=== PATIENT | female | born 2000 | race Caucasian/White ===

== ENCOUNTER 2024-05-24 01:41 | Emergency (ER) | payer OTHER, SELFPAY ==
[2024-05-24 01:46] VITALS: BP 110/66; PULSE 97; TEMP 36.8; O2SAT 100; BMI 30.2
--- NOTE | 2024-05-24 01:48 | ED_ITS ---
HPI - Nausea/Vomiting/Diarrhea General Chief complaint: Nausea/Vomiting/Diarrhea Stated complaint: vomiting Time Seen by Provider: 05/24/24 01:47 History of Present Illness HPI Narrative: This 23-year-old female presents for evaluation of nausea vomiting and diarrhea that started earlier this evening. She has had at least 6 episodes of diarrhea and 2-3 episodes of vomiting. The last episode of vomiting was in the car on the way to the hospital. She is uncertain whether or not she may be . She has had some chills and sweats. She denies any madelin abdominal pain. She has no chest pain or shortness of breath. She denies any sick contacts, recent travel out of the country or recent antibiotic use. Related Data Home Medications ?Medication ?Instructions ?Recorded ?Confirmed No Known Home Medications 05/24/24 05/24/24 Allergies Allergy/AdvReac Type Severity Reaction Status Date / Time prednisone AdvReac Chest Pain Verified 05/24/24 01:51 Review of Systems ROS Status of ROS 10 or more systems reviewed and unremark able except as noted in history and below PFSH PFSH Social History Little interest or pleasure in doing things: not at all Feeling down, depressed, or hopeless: not at all Exam Narrative Exam Narrative: Vital signs and Nursing Notes reviewed: General: Awake, alert, oriented, nontoxic but uncomfortable appearing female, no respiratory distress, dry heaving in the ER HEENT: Normocephalic atraumatic, mucous membranes are moist and pink, eyes are clear, normal conjunctiva, vision is grossly intact, posterior pharynx is normal in appearance. Chest: Lungs are clear to auscultation with good air entry, there is no wheezing rhonchi or rales appreciated no accessory muscle use, patient is speaking in complete sentences-no chest wall tenderness to palpation CVS: Regular rate and rhythm S1-S2, no murmurs rubs or gallops, pulses are brisk and equal bilaterally ABD: Soft, nondistended, nontender, no rebound guarding or rigidity, bowel sounds are normal, no pulsatile masses appreciated Extremities: Moving all extremities, no lower extremity tenderness or swelling noted, negative Homans' sign, pulses are brisk and equal bilaterally Skin: Normal in appearance without rash,pallor, petechiae or purpura Neuro: No focal deficits Constitutional Vital Signs, click to edit/add: Last Vital Signs Temp 98.3 F 05/24/24 01:46 Pulse 90 05/24/24 03:42 Resp 16 05/24/24 03:42 BP 99/55 05/24/24 03:42 Pulse Ox 98 05/24/24 03:42 O2 Del Method Room Air 05/24/24 03:42 Course Vital Signs Vital signs: Vital Signs Temperature 98.3 F 05/24/24 01:46 Pulse Rate 97 H 05/24/24 01:46 Respiratory Rate 16 05/24/24 01:46 Blood Pressure 110/66 05/24/24 01:46 Pulse Oximetry 100 05/24/24 01:46 Oxygen Delivery Method Room Air 05/24/24 01:46 Temperature 98.3 F 05/24/24 01:46 Pulse Rate 90 05/24/24 03:42 Respiratory Rate 16 05/24/24 03:42 Blood Pressure 99/55 05/24/24 03:42 Pulse Oximetry 98 05/24/24 03:42 Oxygen Delivery Method Room Air 05/24/24 03:42 MDM - Nausea/Vomiting/Diarrhea MDM Narrative Medical decision making narrative: This 23-year-old female who is otherwise healthy and uncertain if she may be is brought to the emergency department by her boyfriend for evaluation of nausea vomiting and diarrhea that started earlier in the evening. She had multiple episodes of diarrhea then developed nausea and vomiting. Upon arrival she was having dry heaves and had an episode of vomiting in the car. She has not had a fever. She did complain of some chills. Her abdomen is soft. Lungs are clear. Vital signs are stable. An IV was placed and she was medicated with IV fluids, Zofran Pepcid and Toradol. On reevaluation she is feeling better. Routine labs are reviewed. Her test was negative she has an elevated white count of 17.4 which is likely related to her vomiting, her electrolytes are normal. Liver function tests are normal. On reevaluation she is tolerating ice chips and feeling better. She will be given a home dose of Zofran and p rescription for Zofran, Pepcid and Bentyl with recommendation for clear liquid diet with slow advancement as tolerated. Lab Data Labs: Lab Results 05/24/24 Range/Units 02:10 WBC 17.4 H (4.0-11.0) 10^3/uL RBC 5.02 (4.20-5.40) 10^6/uL Hgb 13.6 (12.0-16.0) g/dL Hct 40.7 (36.0-48.0) % MCV 81.1 (81.0-99.0) fL MCH 27.1 (26.7-34.0) pg MCHC 33.4 (29.9-35.2) g/dL RDW 14.4 (11.0-15.0) % Plt Count 281 (150-450) 10^3/uL MPV 9.4 L (9.5-13.5) fL Neut % (Auto) 86.5 H (43.0-75.0) % Lymph % (Auto) 7.3 L (20.5-60.0) % [place] % (Auto) 4.5 (1.7-12.0) % Eos % (Auto) 1.0 (0.9-7.0) % Baso % (Auto) 0.2 (0.2-2.0) % Neut # (Auto) 15.0 H (1.4-6.5) 10^3/uL Lymph # (Auto) 1.3 (1.2-3.8) 10^3/uL [place] # (Auto) 0.8 (0.3-0.8) 10^3/uL Eos # (Auto) 0.2 (0.0-0.7) 10^3/uL Baso # (Auto) 0.0 (0.0-0.1) 10^3/uL Abs Immat Gran (auto) 0.09 H (0.00-0.03) 10^3/uL Imm/Tot Granulo (auto) 0.5 (0.0-0.5) % Sodium 141 (136-145) mmol/L Potassium 3.5 (3.5-5.1) mmol/L Chloride 104 (98-107) mmol/L Carbon Dioxide 27.2 (21.0-32.0) mmol/L Anion Gap 13.3 BUN 13.0 (7.0-18.0) mg/dL Creatinine 0.95 (0.55-1.02) mg/dL Est GFR ( Amer) >60 (>=60 mL/min/1.73m^2) Est GFR (Non-Af Amer) >60 (>=60 mL/min/1.73m^2) BUN/Creatinine Ratio 13.7 Glucose 121 H (74-106) mg/dL Calcium 8.9 (8.5-10.1) mg/dL Total Bilirubin 0.4 (0.2-1.0) mg/dL AST 15 (15-37) U/L ALT 20 (14-59) U/L Alkaline Phosphatase 83 (46-116) U/L Total Protein 7.7 (6.4-8.2) g/dL Albumin 3.6 (3.4-5.0) g/dL Globulin 4.1 g/dL Albumin/Globulin Ratio 0.9 Serum HCG, Qual Negative (NEGATIVE) Discharge Plan Discharge Chief Complaint: Nausea/Vomiting/Diarrhea Clinical Impression: Gastroenteritis Patient Disposition: Home, Self-Care Time of Disposition Decision: 03:34 Condition: Good Mode of Transportation: Private Vehicle Prescriptions / Home Meds: No Action No Known Home Medications Print Language: Kosovan Instructions: Acute Nausea and Vomiting (ED), Acute Diarrhea (ED) Referrals: MALATHI PUGA [Primary Care Provider] - 1 week Discharge Date/Time: 05/24/24 03:45
[2024-05-24 02:20] LABS: Basophils Percent Auto 0.2 % (0.2-2.0); Eosinophils Absolute Auto 0.2 10^3/uL (0.0-0.7); Hematocrit 40.7 % (36.0-48.0); Hemoglobin 13.6 g/dL (12.0-16.0); Immature Granulocytes Abs Auto 0.09 10^3/uL (0.00-0.03); Immature Granulocytes Pct Auto 0.5 % (0.0-0.5); Lymphocytes Absolute Auto 1.3 10^3/uL (1.2-3.8); Lymphocytes Percent Auto 7.3 % (20.5-60.0); Mean Corpuscular HGB Conc 33.4 g/dL (29.9-35.2); Mean Corpuscular Hemoglobin 27.1 pg (26.7-34.0); Mean Corpuscular Volume 81.1 fL (81.0-99.0); Mean Platelet Volume 9.4 fL (9.5-13.5); Monocytes Absolute Auto 0.8 10^3/uL (0.3-0.8); Monocytes Percent Auto 4.5 % (1.7-12.0); Neutrophils Percent Auto 86.5 % (43.0-75.0); Platelet Count 281 10^3/uL (150-450); Red Blood Count 5.02 10^6/uL (4.20-5.40); Red Cell Distribution Width 14.4 % (11.0-15.0); White Blood Count 17.4 10^3/uL (4.0-11.0)
[2024-05-24] MEDS: 0.9 % SODIUM CHLORIDE 1,000 ML 1000 ML IV (02:24)
[2024-05-24] MEDS: ONDANSETRON PF 4 MG/2 ML VIAL IV (02:24)
[2024-05-24] MEDS: FAMOTIDINE/PF 20 MG/2 ML VIAL IV (02:24)
[2024-05-24 02:34] LABS: Alanine Aminotransferase 20 U/L (14-59); Albumin Globulin Ratio 0.9; Albumin Level 3.6 g/dL (3.4-5.0); Alkaline Phosphatase 83 U/L (46-116); Anion Gap 13.3; Aspartate Amino Transferase 15 U/L (15-37); BUN Creatinine Ratio 13.7; Bilirubin Total 0.4 mg/dL (0.2-1.0); Calcium 8.9 mg/dL (8.5-10.1); Carbon Dioxide 27.2 mmol/L (21.0-32.0); Chloride 104 mmol/L (98-107); Estimated GFR (African America >60 (>=60 mL/min/1.73m^2); Estimated GFR (Non-African Ame >60 (>=60 mL/min/1.73m^2); Globulin 4.1 g/dL; Glucose 121 mg/dL (74-106); Potassium 3.5 mmol/L (3.5-5.1); Sodium 141 mmol/L (136-145); Total Protein 7.7 g/dL (6.4-8.2)
[2024-05-24 02:35] LABS: HCG Qualitative NEGATIVE (NEGATIVE); Internal Control Within Normal Limits
[2024-05-24] MEDS: KETOROLAC TROMETHAMINE 30 MG/ML VIAL IVP (02:43)
[2024-05-24] MEDS: ONDANSETRON 4 MG RAPDIS TABLET SL (03:38)
[2024-05-24 03:42] VITALS: BP 99/55; PULSE 90; O2SAT 98
== END 2024-05-24 03:45 | disposition home or self-care (01) ==
PROVIDERS: Emergency Provider Emergency Medicine; PCP Family Medicine
DX: K52.9 Noninfective gastroenteritis and colitis, unspecified (principal)
CPT/HCPCS: 36415; 80053; 84703; 85025; 96361; 96374; 96375; 99284; J1885; J2405; J3490; Q0162

== ENCOUNTER 2024-12-28 19:20 | Emergency (ER) | payer OTHER, SELFPAY ==
--- OUTSIDE RECORDS SUMMARY | 2024-10-16 09:15 | XMS_ITS ---
Author Organization [facility] [employer] Address [address] [place] [address] Care Team Providers Care Supervisor Plate Pasting Name Role Phone Rosa Lauren Primary Care Provider LISA EPPS Unavailable REASON FOR VISIT 1 month f/u Encounters Encounter Location Date Provider Diagnosis [facility] [address] [place] [address] 10/16/2024 Rosa Lauren Plan Of Treatment No Information Progress Notes * LUIS CHAMBERLAIN SDOB: [birth year] (24 yo F)Acc No.[id number]:10/16/2024 Behavioral Health Patient: LUIS CARDOSO Appointment Provider: Rama Lauren :2000 A ge:24 Y S ex:Female Date:10/16/2024 Address:[address], [id number] Subjective: * Chief Complaints: * 1 . 1 month f/u bh. * Medical History: Objective: * Vitals: Assessment: Plan: * Treatment: * Images: * Electronic signature of DILAN Nix on 12/28/2024 at 07:27 PM EDT Sign off status: Pending * Appointment Provider: Rama Lauren Date: 0 10/16/2024 Generated for Flor rodriguez/Justus/eTransmitting on: 0 12/28/2024 07:27 PM EDT
[2024-12-28 19:24] VITALS: BP 126/79; PULSE 70; TEMP 36.7; O2SAT 99; BMI 34.0
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
--- OUTSIDE RECORDS SUMMARY | 2024-12-28 19:27 | XMS_ITS | Clinical Summary ---
Author Organization [facility] Address [address] [place] [address] Phone Care Team Providers Care Turkey Picker Name Role Phone Unavailable Primary Care Provider Unavailabl e Social History Tobacco Use Types Packs/Day Years Used Date Smoking Tobacco: Never Assessed Comments Unknown Sex and Gender Information Value Date Recorded Sex Assigned at Not on file Legal Sex Female 10:05 AM EST Gender Identity Not on file Sexual Orientation Not on file Plan of Treatment Health Maintenance Due Date Last Done Comments HIV Screening 2001 Lipid Panel 2001 Yearly Adult Physical 2001 MMR Vaccines (1 of 1 - Stand luna series) 2002 HPV Vaccines (1 - 3-dose series) 2016 Meningococcal B Vaccine (1 o f 2 - Standard) 2017 Hepatitis C Screening 08/17/2019 Hepatitis B Vaccines (1 of 3 - 19+ 3-dose series) 2020 Cervical Cancer Screening 2022 HPV/Cotest 2022 Pap Smear 2022 DTaP/Tdap/Td Vaccines (1 - Tdap) 08/17/2023 COVID-19 Vaccine (1 - 2023-2 5 season) 2023 Influenza Vaccine (#1) 2024 Zoster Vaccines (1 of 2) 08/17/2051 HIB Vaccines Aged Out No longer eligi ble based on patient's age to complete this topic Hepatitis A Vaccines Aged Out No long er eligible based on patient's age to complete this topic IPV Vaccines Aged Out No longer eligi ble based on patient's age to complete this topic Meningococcal Vaccine Aged Out No srinivas arlene eligible based on patient's age to complete this topic Pneumococcal Vaccine: Pediat rics and At-Risk Adult Patients Aged Out No longer scotty gible based on patient's age to complete this topic Rotavirus Vaccines Aged Out No longer eligible based on patient's age to complete this topic Insurance [facility] Member Subscriber Plan / Payer ( fective 2023-Present) Name:Elizabeth Hernandez Relation to Subscriber:Self Name:Elizabeth Hernandez Payer ID:Not on file Type:Not on file Address: [address] [place] [phone] [facility] Member Subscriber Plan / Payer ( fective 2023-Present) Name:Elizabeth Hernandez Relation to Subscriber:Self Name:Elizabeth Hernandez Payer ID:Not on file Type:Not on file Address: [address] [place] [phone]
--- OUTSIDE RECORDS SUMMARY | 2024-12-28 19:27 | XMS_ITS | Clinical Summary ---
Author Organization [facility] Address [address], [address] [place] [address] Care Team Providers Care Remote Sensing Engineer Name Role Phone Unavailable Primary Care Provider Unavailabl e Social History Tobacco Use Types Packs/Day Years Used Date Smoking Tobacco: Never Assessed Comments Unknown Sex and Gender Information Value Date Recorded Sex Assigned at Not on file Legal Sex Female 9:06 AM EDT Gender Identity Not on file Sexual Orientation Not on file Plan of Treatment Not on file Insurance
--- OUTSIDE RECORDS SUMMARY | 2024-12-28 19:27 | XMS_ITS | Encounter Summary ---
Author Organization [facility] Address [address] [place] [address] Care Team Providers Care Grey Tender Name Role Phone PedroEfe rosales DO Unavailable [phone] Leena Mazariegos DO Primary Care Provider [phone] Encounter Details Date Type Department Care Team (Late st Contact Info) Description 04/17/2024 External Result Encounter [facility] External Department Unsolicited Stacy Rodriguez NP [address] [place] [address] Social History Tobacco Use Types Packs/Day Years Used Date Smoking Tobacco: Never Smokeless Tobacco: Never Comments Unknown Sex and Gender Information Value Date Recorded Sex Assigned at Not on file Legal Sex Female 6:45 PM EDT Gender Identity Not on file Sexual Orientation Not on file documented as of this encounter Plan of Treatment Not on file documented as of this encounter Procedures Procedure Name Priority Date/Time Associated Diagnosis Comments XR CERVICAL SPINE COMPLETE 4-5 VIEWS 04/17/2024 1:58 PM EST documented in this encounter Results * XR cervical spine complete 4 to 5 views (04/17/2024 1:58 PM EST) Anatomical Region Laterality Modality Spine, C-spine Radiographic Evelyn ging 04/17/2024 1:58 PM EST Impressions 04/17/2024 2:01 PM EST Reversal of cervical lordosis secondary patient positioning or spasm. Impression dictated by: Jeremi Altman M.D.04/17/2024 1:59 PM Dictation Location: [place] [address] Transcribed By: [facility] 04/17/24 1359 Dictated By: Jeremi Altman DO 04/17/24 1358 Signed By: <Electronically signed by Jeremi Altman DO in OV> 04/17/24 1359 Narrative 04/17/2024 2:01 PM EST [facility] [place] [address] XRay Report Signed Patient: Elizabeth Hernandez MR#: [id number] : 2000 Acct:[id number] Age/Sex: 23 / F ADM Date: 04/17/24 Loc: ER Room: Type: [facility] ER Attending Dr: Copies to: Stacy Rodriguez APRN Ordering Provider: Stacy Rodriguez APRN Date of Service: 04/17/24 XR/XR cervical spine 5V*: Extremity Injury, Upper 5 views of thecervical spine HISTORY: Right shoulder and right-sided neck pain for 4 days. COMPARISON: None POSTOPERATIVE CHANGES: None BONY ALIGNMENT: Reversal of cervical lordosis HYPERMOBILITY::No bending imaging. LISTHESIS:None FRACTURE: None DISC DEGENERATION: Disc spaces are adequate. FACETS: Unremarkable FORAMEN: Unremarkable. DENS: Intact CRANIOCERVICAL JUNCTION: Unremarkable SOFT TISSUES: Unremarkable XR/XR cervical spine 5V* Procedure Note Radiology, Radiologist, MD - 04/17/2024 [facility] Main [address] [address] XRay Report Signed Patient: Elizabeth Hernandez SMR#: [id number] : 2000Acct:[id number] Age/Sex: 23 / FADM Date: 04/17/24 Loc: ER Room:Type: [facility] ER Attending Dr: Copies to: Stacy Rodriguez APRN Ordering Provider: Stacy Rodriguez APRN Date of Service: 04/17/24 XR/XR cervical spine 5V*: Extremity Injury,Upper 5 views of thecervical spine HISTORY: Right shoulder and right-sided neck pain for 4 days. COMPARISON: None POSTOPERATIVE CHANGES: None BONY ALIGNMENT: Reversal of cervical lordosis HYPERMOBILITY::No bending imaging. LISTHESIS:None FRACTURE: None DISC DEGENERATION: Disc spaces are adequate. FACETS: Unremarkable FORAMEN: Unremarkable. DENS: Intact CRANIOCERVICAL JUNCTION: Unremarkable SOFT TISSUES: Unremarkable XR/XR cervical spine 5V* IMPRESSION: Reversal of cervical lordosis secondary patient positioning or spasm. Impression dictated by: Jeremi Altman M.D.04/17/2024 1:59 PM Dictation Location: [place] [address] Transcribed By: [facility] 04/17/24 1359 Dictated By: Jeremi Altman DO 04/17/24 1358 Signed By: <Electronically signed by Jeremi Altman DO in OV> 04/17/24 1359 us Stacy Rodriguez PACKAGE CHECKER IMG XR PROCEDURES Final R esult documented in this encounter Visit Diagnoses Not on filedocumented in this encounter Care Teams Grey Tender Relationship Specialty Start Date End Date Leena Mazariegos DO [address] [place] [address] PCP - General Family Medicine 11/12/23 Efe Leyva DO [address] [place] [address] Otolaryngology 11/12/23 documented as of this encounter
--- OUTSIDE RECORDS SUMMARY | 2024-12-28 19:27 | XMS_ITS | Encounter Summary ---
Author Organization [facility] Address [address] [place] [address] Care Team Providers Care Contact Center Analyst Name Role Phone PedroEfe rosales DO Unavailable [phone] Leena Mazarieogs DO Primary Care Provider [phone] Encounter Details Date Type Department Care Team (Late st Contact Info) Description 08/27/2024 Orders Only [facility] [place] [facility] [address] [place] [address] Carole Salas NP [address] [place] [address] Social History Tobacco Use Types Packs/Day Years Used Date Smoking Tobacco: Never Smokeless Tobacco: Never Alcohol Use Standard Drinks/Week Comments Yes 2 [...] Procedure Name Priority Date/Time Associated Diagnosis Comments CT ABDOMEN PELVIS WO IV CONTRAST Routine 08/24/2024 10:08 AM EDT documented in this encounter Results * CT abdomen pelvis wo IV contrast (08/24/2024 10:08 AM EDT) Anatomical Region Laterality Modality Body, Pelvis, Abdomen Computed T omography Carole Salas PRISON LIBRARIAN IMG CT PROCEDURES Final Resul t documented in this encounter Visit Diagnoses Not on filedocumented in this encounter Care Teams Contact Center Analyst Relationship Specialty Start Date End Date Leena Mazariegos DO [address] [place] [address] PCP - General Family Medicine 11/12/23 Efe Leyva DO [address] [place] [address] Otolaryngology 11/12/23 documented as of this encounter
--- OUTSIDE RECORDS SUMMARY | 2024-12-28 19:27 | XMS_ITS | Patient Health Record ---
Author Organization [facility] Servic es Address [address] [place] [address] Care Team Providers Care Boiler Maker Name Role Phone Rosa Lauren Primary Care Provider LISA EPPS Unavailable Unavailable Allergies No Known Allergies Results Component Value Reference Range Notes Comprehensive Metabolic Pane l Reviewed date:09/04/2024 02:00:57 PM Interpretation: Performing Lab:, [facility], [address] [place] Notes/Report: Reason for Exam Bipolar 2 disorder, major depressive episode;Medication shira Glucose 87 70-100 mg/dL Random Glucose Reference Range is dependent on time and content of last meal. Glucose of more than 200 mg/dL in a nonstressed, ambulatory subject supports the diagnosis of Diabetes Mellitus. ADA recommended reference range Blood Urea Nitrogen 7 7-25 mg/dL Creatinine 0.65 0.60-1.20 mg/dL Sodium 136 136-145 mmol/L Potassium 4.0 3.5-5.1 mmol/L Chloride 103 98-107 mmol/L Carbon Dioxide 25.6 21.0-31.0 mmol/L Calcium 9.3 8.6-10.3 mg/dL Total Protein 7.1 6.4-8.9 g/dL Albumin Level 4.1 3.5-5.7 g/dL Globulin 3.0 Albumin/Globulin Ratio 1.4 Bilirubin,Total 0.4 0.3-1.0 mg/dL Aspartate Amino Transferase 17 13-39 U/L Alanine Aminotransferase 16 7-52 U/L Alkaline Phosphatase 71 34-104 U/L Estimated GFR >60.0 Anion Gap 11.4 6.0-15.0 meq/L Complete Blood Count Auto Di ff Reviewed date:09/04/2024 02:00:43 PM Interpretation: Performing Lab:, [facility], [address] [facility] Notes/Report: Reason for Exam Bipolar 2 disorder, major depressive episode;Medication shira White Blood Count 10.2 3.8-11.6 10*3/uL Uncorrected WBC 10.2 3.8-11.6 10*3/uL Red Blood Count 5.07 3.60-5.00 10*6/uL Hemoglobin 13.5 11.8-15.4 g/dL Hematocrit 40.7 34.0-46.4 % Mean Corpuscular Volume 80.3 80-100 fL Mean Corpuscular Hemoglobin 26.6 24.7-34.3 pg Mean Corpuscular HGB Conc 33.1 32.0-35.0 g/dL Red Cell Distribution Width 15.1 11.9-15.3 % Platelet Count 249 150-450 10*3/uL Mean Platelet Volume 8.1 6.3-10.7 fL Neutrophils % (Auto) 61.2 . % Lymphocytes % (Auto) 29.7 . % Monocytes % (Auto) 6.4 . % Eosinophils % (Auto) 2.4 . % Basophils % (Auto) 0.3 . % NRBC% 0.1 0-0.5 /100{WBC} Neutrophils # (Auto) 6.2 1.8-7.7 10*3/uL Lymphocytes # (Auto) 3.0 1.00-4.8 10*3/uL Monocytes # (Auto) 0.7 0.0-0.8 10*3/uL Eosinophils # (Auto) 0.2 0.0-0.45 10*3/uL Basophils # (Auto) 0.0 0.0-0.2 10*3/uL Thyroid Profile II Reviewed date:09/10/2024 10:37:25 AM Interpretation: Performing Lab:, [facility], [address] [place] Notes/Report: Reason for Exam Bipolar 2 disorder, major depressive Performed at: [facility] episode;Medication shira [address], [place] [id number] Client Service Supervisor: Uri Unger PhD, Phone: [phone] Triiodothryronine (T3) Uptake 28 24-39 % [facility] Thyroxine (T4) 7.4 4.5-12.0 ug/dL Free Thyroxine Index 2.1 1.2-4.9 [facility] Triiodothyronine,(T3) 156 71-180 ng/ dL TSH ([facility]) 1.130 0.450-4.500 u[iU]/mL Reason For Referral Reason Referral from PCP teo white, family hx of bipolar and AOD. Diagnosis 1 Encounter for screen ing examination for mental health and behavioral disorders (Z13.30) Referral Organization [facility] Referring Provider First Name Molly Referring Provider Last Name Joel [facility] Organization [facility] Sharif Referred Provider Mishel Lazcano Referred Address [address] [place] [phone], Referred Provider Specialty Medicatio ns Referral Priority Routine Medications Medication SIG (Take, Route, Frequency, Duration) Notes Start Date End Date Status QUEtiapine Fumarate 25 MG 1 tablet at be dtime Orally Once a day 08/26/2024 Active Lurasidone HCl 20 MG 1 tablet in the kerline anastasiya with food Orally Once a day 08/26/2024 Active hydrOXYzine Pamoate 25 MG 1 capsule Orally every 6 hours as needed; Duration: 30 days As needed 09/18/2024 Active Social History DAST-10 (2020 Edition) Question Answer Notes 1. Have you used drugs other than those required for medical reasons? No 2. Do you abuse more than one drug at a time? No 3. Are you always able to stop using drugs when you want to? No 4. Have you had blackouts or flashbacks as a result of drug use? No 5. Do you ever feel bad or guilty about your shelley g use? No 6. Does your spouse (or pare nts) ever complain about your involvement with drugs? No 7. Have you neglected your family because of you r use of drugs? No 8. Have you engaged in illegal activities in ord er to obtain drugs? No 9. Have you ever experienced withdrawal symptoms (felt sick) when you stopped taking drugs? No 10. Have you had medical pro blems as a result of your drug use (e.g., memory loss, hepatitis, convulsions, bleeding etc.)? No Results: 1 Interpretation of Score: Low level AUDIT-C (Standard) Question Answer Notes Did you have a drink contain ing alcohol in the past year? Yes How often did you have a dri nk containing alcohol in the past year? Never (0 point) How many drinks did you have on a typical day when you were drinking in the past year? 1 or 2 drinks (0 point) How often did you have six o r more drinks on one occasion in the past year? 2 to 4 times a month (2 points) Points 2 Interpretation Negative OPIOID Risk Tool (2018 Edition) Question Answer Notes Family Hx Alcohol? Yes Family Hx Illegal Drugs? Yes Family Hx Rx Drugs? Yes Personal Hx Alcohol? No Personal Hx Illegal Drugs? No Personal Hx Rx Drugs? No Age between 16-45 years? Yes History of Preadolescent Sexual Abuse? No ADD, OCD, Bipolar, Schizophrenia? No Depression? Yes TOTAL SCORE 9 Risk Level for Opioid Use high Problems Problem Type SNOMED Code ICD Code Onset Dates Problem Status W/U Status Risk Notes Problem Posttraumatic stress disorder (43930032) PTSD (post-traumati c stress disorder) (F43.10) Active confirmed Problem Bipolar 2 disorder, major depressive episode (F31.81) Active confirmed Vital Signs Heart Rate 103 /min 08/26/2024 Blood pressure diastolic 74 mm Hg 08/26/2024 Height 5'2'' in 09/18/2024 Blood pressure systolic 111 mm Hg 08/26/2024 Weight 165.0 lbs 08/26/2024 BMI 30.18 kg/m2 08/26/2024 Encounters Encounter Location Date Provider Diagnosis [address] [id number] 09/01/2024 [facility] [address] [place] [address] 08/26/2024 Rosa Lauren Bipolar 2 disorder, major depressive episode F31.81 ; Medication management Z79.899 and PTSD (post-traumatic stress disorder) F43.10 [facility] [address] [place] [address] 09/18/2024 Rosa Lauren Bipolar 2 disorder, major depressive episode F31.81 and PTSD (post-traumatic stress disorder) F43.10 Assessments Encounter Date Diagnosis (ICD Code) Assessment Notes Treatment Notes Treatment Clinical Notes Section Notes 08/26/2024 Bipolar 2 disorder, major depressive episode (ICD-10 - F31.81) Based on DSM V, this patient meets the criteria for the diagnosis of: . Bipolar 2 Disorder, major depressive episode . Recommended treatment is: Recommended treatment for Bipolar disorder includes FDA approved and OFF label medications: second generation antipsychotics and mood stabilizers. Discussed life threatening side effect of Lamotrigine. Pt is to monitor for new skin rashes or sensation of a sunburn or itchiness or redness, mouth sores or sores in mucus membranes, and call provider immediately and or go to ER, and stop the medication. Second generation antipsychotic medications can cause headache, drowsiness, agitation, dizziness, nausea, or extrapyramidal symptoms such as tremors, muscle spasms, slowness of movement or jerking of muscles. . The patient verbalizes understanding with all questions answered thoroughly and is in agreement with treatment plan. . . Start current treatment with lurasidone. Add quetiapine for sleep. Call for problems . GOALS: . Maintain medication regimen _Improve mood stability _Improve anxiety control _Improve social and interpersonal functioning . Informed consent obtained: YES, we discussed the diagnosis/diagnoses , the treatment options, treatment(s) recommended vs. no treatment. We discussed risks and benefits of treatment options, treatment recommendations vs. no treatment. . Currently at low risk for self harm. Denies ongoing feelings of hopelessness. Denies ongoing suicidal ideation, intent or plan in session. . 09/18/2024 Bipolar 2 disorder, major depressive episode (ICD-10 - F31.81) Recommended treatment for Bipolar disorder includes FDA approved and OFF label medications: second generation antipsychotics and mood stabilizers. Discussed life threatening side effect of Lamotrigine. Pt is to monitor for new skin rashes or sensation of a sunburn or itchiness or redness, mouth sores or sores in mucus membranes, and call provider immediately and or go to ER, and stop the medication. Second generation antipsychotic medications can cause headache, drowsiness, agitation, dizziness, nausea, or extrapyramidal symptoms such as tremors, muscle spasms, slowness of movement or jerking of muscles. Stable The patient verbalizes understanding with all questions answered thoroughly and is in agreement with treatment plan. Continue current treatment with addition of for anxiety. . Call for problems . GOALS: . Maintain medication regimen _Improve mood stability _Improve anxiety control _Improve social and interpersonal functioning Patient/Guardian will call sooner if symptoms worsen. Patient understands to go to ER if needed if symptoms become severe. Crisis Intervention plan was discussed and agreed upon. Patient/Guardian will call 911 in case of emergency. Emergency contact information was provided to the patient/guardian. follow up 4 weeks. Pharmacological management: . Alternative medication plans were discussed with the patient/guardian. All relevant side effects and potential adverse effects were discussed with the patient/guardian. Standard cautions and potential benefits were discussed. Patient/Guardian consented to the start/continuation of the treatment. 09/18/2024 PTSD (post-traumati c stress disorder) (ICD-10 - F43.10) 08/26/2024 PTSD (post-traumati c stress disorder) (ICD-10 - F43.10) 08/26/2024 Medication management (ICD-10 - Z79.899) Plan Of Treatment No Information Insurance Providers Payer Name Payer Address Payer Phone Subscriber Number Group Number Insured Name Patient Relationship to Insured Coverage Start Date Coverage End Date [facility] [address] [place] [address] [id number] LUIS CHAMBERLAIN Self - patient is the insured 5
--- OUTSIDE RECORDS SUMMARY | 2024-12-28 19:27 | XMS_ITS | Clinical Summary ---
Author Organization [employer] [facility] Address [id number] [address] [place] [address] Care Team Providers Care Supervisor Facepiece Line Name Role Phone Unavailable Primary Care Provider Unavailabl e Social History Tobacco Use Types Packs/Day Years Used Date Smoking Tobacco: Never Assessed Childcare Answer Date Recorded Childcare Unknown 10/08/2018 Employment Answer Date Recorded Employment Unknown 10/08/2018 Comments Unknown Sex and Gender Information Value Date Recorded Sex Assigned at Not on file Legal Sex Female 9:13 AM EDT Gender Identity Not on file Sexual Orientation Not on file Plan of Treatment Not on file Medical Devices Not on file
--- OUTSIDE RECORDS SUMMARY | 2024-12-28 19:27 | XMS_ITS | Encounter Summary ---
Author Organization [facility] Address [address] [place] [address] Phone Care Team Providers Care Alignment Specialist Name Role Phone Unavailable Primary Care Provider Unavailabl e Encounter Details Date Type Department Care Team (Late st Contact Info) Description 06/28/2023 Scanned Document [facility] [address] [place] [id number] Scanning, Generic Provider Social History Tobacco Use Types Packs/Day Years [...] Procedure Name Priority Date/Time Associated Diagnosis Comments ECHOCARDIOGRAM 06/28/2023 documented in this encounter Results * ECHOCARDIOGRAM (06/28/2023) Narrative 06/28/2023 Ordered by an unspecified provider. us Generic Provider Scanning CV ECHO PROCEDURES Fin al Result documented in this encounter Visit Diagnoses Not on filedocumented in this encounter
--- OUTSIDE RECORDS SUMMARY | 2024-12-28 19:29 | XMS_ITS | CCD ---
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 [Mass/Vol] Albumin [Mass/volume] in Serum or Plasma by Bromocresol green (BCG) dye binding metho 3.5-5.7 [facility] Alkaline phosphatase [Enzyma tic activity/volume] in Serum or PlasmaOrdered By: Rosa Lauren on 09-04-2024 ALP [Catalytic activity/Vol] Alkaline phosphatase [Enzymatic activity/volume] in Serum or Plasma 34-104 [facility] Aspartate aminotransferase [ Enzymatic activity/volume] in Serum or PlasmaOrdered By: Rosa Lauren on 09-04-2024 AST [Catalytic activity/Vol] Aspartate aminotransferase [Enzymatic activity/volume] in Serum or Plasma 13-39 [facility] Basophils Auto (Bld) [#/Vol] Ordered By: Rosa Lauren on 09-04-2024 Basophils (Bld) [#/Vol] Automated basophil count 0.0-0.2 [facility] Basophils/100 WBC Auto (Bld) Ordered By: Rosa Lauren on 09-04-2024 Basophils/100 WBC (Bld) Automated basophil % . [facility] Bilirubin.total [Mass/volume ] in Serum or PlasmaOrdered By: Rosa Lauren on 09-04-2024 Bilirubin [Mass/Vol] Bilirubin.total [Mass/volume] in Serum or Plasma 0.3-1.0 [facility] Calcium [Mass/volume] in Ser um or PlasmaOrdered By: Rosa Lauren on 09-04-2024 Calcium [Mass/Vol] Calcium [Mass/volume ] in Serum or Plasma 8.6-10.3 [facility] Carbon dioxide, total [Moles /volume] in Serum or PlasmaOrdered By: Rosa Lauren on 09-04-2024 CO2 [Moles/Vol] Carbon dioxide, tota l [Moles/volume] in Serum or Plasma 21.0-31.0 [facility] Chloride [Moles/volume] in S gerry or PlasmaOrdered By: Rosa Lauren on 09-04-2024 Chloride [Moles/Vol] Chloride [Moles/vol ume] in Serum or Plasma 98-107 [facility] Complete Blood Count Auto Di ffon 09-04-2024 Basophils (Bld) [#/Vol] 0.0 10*3/uL Normal 0.0-0.2 [facility] Comment on above: Order Comment: Reaso n for Exam Bipolar 2 disorder, major depressive episode;Medication shira Result Comment: PERF ORMED BY: [place] [address] PATHOLOGIST [employer] ABEL MENDOZA M.D. Performed By: #### C BC, CMP #### [place] [address] [place] #### THYROID PROF II #### [facility] , Basophils/100 WBC (Bld) 0.3 % Normal . [facility] Comment on above: Order Comment: Reaso n for Exam Bipolar 2 disorder, major depressive episode;Medication shira Performed By: #### C BC, CMP #### [place] [address] [place] #### THYROID PROF II #### [facility] , Eosinophils (Bld) [#/Vol] 0.2 10*3/uL Normal 0.0-0.45 [facility] Comment on above: Order Comment: Reaso n for Exam Bipolar 2 disorder, major depressive episode;Medication shira Performed By: #### C BC, CMP #### [facility] [address] [place] [address] [place] #### THYROID PROF II #### [facility] , Eosinophils/100 WBC (Bld) 2.4 % Normal . [facility] Comment on above: Order Comment: Reaso n for Exam Bipolar 2 disorder, major depressive episode;Medication shira Performed By: #### C BC, CMP #### [place] [address] [place] #### THYROID PROF II #### [facility] , Erythrocyte distribution width (RBC) [Ratio] 15.1 % Normal 11.9-15.3 [facility] Comment on above: Order Comment: Reaso n for Exam Bipolar 2 disorder, major depressive episode;Medication shira Performed By: #### C BC, CMP #### [place] [address] [place] #### THYROID PROF II #### [facility] , Hematocrit (Bld) [Volume fraction] 40.7 % Normal 34.0-46.4 [facility] Comment on above: Order Comment: Reaso n for Exam Bipolar 2 disorder, major depressive episode;Medication shira Performed By: #### C BC, CMP #### [place] [address] [place] #### THYROID PROF II #### [facility] , Hemoglobin (Bld) [Mass/Vol] 13.5 g/dL Normal 11.8-15.4 [facility] Comment on above: Order Comment: Reaso n for Exam Bipolar 2 disorder, major depressive episode;Medication shira Performed By: #### C BC, CMP #### [place] [address] [place] #### THYROID PROF II #### [facility] , Lymphocytes (Bld) [#/Vol] 3.0 10*3/uL Normal 1.00-4.8 [facility] Comment on above: Order Comment: Reaso n for Exam Bipolar 2 disorder, major depressive episode;Medication shira Performed By: #### C BC, CMP #### [facility] [address] [place] [address] [place] #### THYROID PROF II #### [facility] , Lymphocytes/100 WBC (Bld) 29.7 % Normal . [facility] Comment on above: Order Comment: Reaso n for Exam Bipolar 2 disorder, major depressive episode;Medication shira Performed By: #### C BC, CMP #### [place] [address] [place] #### THYROID PROF II #### [facility] , MCH (RBC) [Entitic mass] 26.6 pg Normal 24.7-34.3 [facility] Comment on above: Order Comment: Reaso n for Exam Bipolar 2 disorder, major depressive episode;Medication shira Performed By: #### C BC, CMP #### [place] [address] [place] #### THYROID PROF II #### [facility] , MCV (RBC) [Entitic vol] 80.3 fL Normal 80-100 [facility] Comment on above: Order Comment: Reaso n for Exam Bipolar 2 disorder, major depressive episode;Medication shira Performed By: #### C BC, CMP #### [place] [address] [place] #### THYROID PROF II #### [facility] , Mean Corpuscular HGB Conc 33.1 g/dL Normal 32.0-35.0 [facility] Comment on above: Order Comment: Reaso n for Exam Bipolar 2 disorder, major depressive episode;Medication shira Performed By: #### C BC, CMP #### [place] [address] [place] #### THYROID PROF II #### [facility] , Monocytes (Bld) [#/Vol] 0.7 10*3/uL Normal 0.0-0.8 [facility] Comment on above: Order Comment: Reaso n for Exam Bipolar 2 disorder, major depressive episode;Medication shira Performed By: #### C BC, CMP #### [place] [address] [place] #### THYROID PROF II #### [facility] , Monocytes/100 WBC (Bld) 6.4 % Normal . [facility] Comment on above: Order Comment: Reaso n for Exam Bipolar 2 disorder, major depressive episode;Medication shira Performed By: #### C BC, CMP #### [place] [address] [place] #### THYROID PROF II #### [facility] , Neutrophils (Bld) [#/Vol] 6.2 10*3/uL Normal 1.8-7.7 [facility] Comment on above: Order Comment: Reaso n for Exam Bipolar 2 disorder, major depressive episode;Medication shira Performed By: #### C BC, CMP #### [place] [address] [place] #### THYROID PROF II #### [facility] , Neutrophils/100 WBC (Bld) 61.2 % Normal . [facility] Comment on above: Order Comment: Reaso n for Exam Bipolar 2 disorder, major depressive episode;Medication shira Performed By: #### C BC, CMP #### [place] [address] [place] #### THYROID PROF II #### [facility] , NRBC% 0.1 /100{WBC} Normal 0-0.5 [facility] Comment on above: Order Comment: Reaso n for Exam Bipolar 2 disorder, major depressive episode;Medication shira Performed By: #### C BC, CMP #### [place] [address] [place] #### THYROID PROF II #### [facility] , Platelet mean volume (Bld) [Entitic vol] 8.1 fL Normal 6.3-10.7 [facility] Comment on above: Order Comment: Reaso n for Exam Bipolar 2 disorder, major depressive episode;Medication shira Performed By: #### C BC, CMP #### [place] [address] [place] #### THYROID PROF II #### [facility] , Platelets (Bld) [#/Vol] 249 10*3/uL Normal 150-450 [facility] Comment on above: Order Comment: Reaso n for Exam Bipolar 2 disorder, major depressive episode;Medication shira Performed By: #### C BC, CMP #### [facility] [address] [place] [address] [place] #### THYROID PROF II #### [facility] , RBC (Bld) [#/Vol] 5.07 10*6/uL High 3.60-5.00 [facility] Comment on above: Order Comment: Reaso n for Exam Bipolar 2 disorder, major depressive episode;Medication shira Performed By: #### C BC, CMP #### [facility] [address] [place] [address] [place] #### THYROID PROF II #### [facility] , WBC (Bld) [#/Vol] 10.2 10*3/uL Normal 3.8-11.6 [facility] Comment on above: Order Comment: Reaso n for Exam Bipolar 2 disorder, major depressive episode;Medication shira Performed By: #### C BC, CMP #### [place] [address] [place] #### THYROID PROF II #### [facility] , Comprehensive Metabolic Pane raymond 09-04-2024 Albumin [Mass/Vol] 4.1 g/dL Normal 3.5-5.7 [facility] Comment on above: Order Comment: Reaso n for Exam Bipolar 2 disorder, major depressive episode;Medication shira Performed By: #### C BC, CMP #### [facility] [address] [place] [address] [place] #### THYROID PROF II #### [facility] , Albumin/Globulin [Mass ratio] 1.4 {ratio} Normal [facility] Comment on above: Order Comment: Reaso n for Exam Bipolar 2 disorder, major depressive episode;Medication shira Performed By: #### C BC, CMP #### [facility] [address] [place] [address] [place] #### THYROID PROF II #### [facility] , ALP [Catalytic activity/Vol] 71 U/L Normal 34-104 [facility] Comment on above: Order Comment: Reaso n for Exam Bipolar 2 disorder, major depressive episode;Medication shira Result Comment: PERF ORMED BY: [place] [address] PATHOLOGIST [employer] ABEL MENDOZA M.D. Performed By: #### C BC, CMP #### [place] [address] [place] #### THYROID PROF II #### [facility] , ALT [Catalytic activity/Vol] 16 U/L Normal 7-52 [facility] Comment on above: Order Comment: Reaso n for Exam Bipolar 2 disorder, major depressive episode;Medication shira Performed By: #### C BC, CMP #### [place] [address] [place] #### THYROID PROF II #### [facility] , Anion gap [Moles/Vol] 11.4 mmol/L Normal 6.0-15.0 [facility] Comment on above: Order Comment: Reaso n for Exam Bipolar 2 disorder, major depressive episode;Medication shira Performed By: #### C BC, CMP #### [place] [address] [place] #### THYROID PROF II #### [facility] , AST [Catalytic activity/Vol] 17 U/L Normal 13-39 [facility] Comment on above: Order Comment: Reaso n for Exam Bipolar 2 disorder, major depressive episode;Medication shira Performed By: #### C BC, CMP #### [place] [address] [place] #### THYROID PROF II #### [facility] , Bilirubin [Mass/Vol] 0.4 mg/dL Normal 0.3-1.0 [facility] Comment on above: Order Comment: Reaso n for Exam Bipolar 2 disorder, major depressive episode;Medication shira Performed By: #### C BC, CMP #### [place] [address] [place] #### THYROID PROF II #### [facility] , Calcium [Mass/Vol] 9.3 mg/dL Normal 8.6-10.3 [facility] Comment on above: Order Comment: Reaso n for Exam Bipolar 2 disorder, major depressive episode;Medication shira Performed By: #### C BC, CMP #### [place] [address] [place] #### THYROID PROF II #### [facility] , Chloride [Moles/Vol] 103 mmol/L Normal 98-107 [facility] Comment on above: Order Comment: Reaso n for Exam Bipolar 2 disorder, major depressive episode;Medication shira Performed By: #### C BC, CMP #### [place] [address] [place] #### THYROID PROF II #### [facility] , CO2 [Moles/Vol] 25.6 mmol/L Normal 21.0-31.0 [facility] Comment on above: Order Comment: Reaso n for Exam Bipolar 2 disorder, major depressive episode;Medication shira Performed By: #### C BC, CMP #### [place] [address] [place] #### THYROID PROF II #### [facility] , Creatinine [Mass/Vol] 0.65 mg/dL Normal 0.60-1.20 [facility] Comment on above: Order Comment: Reaso n for Exam Bipolar 2 disorder, major depressive episode;Medication shira Performed By: #### C BC, CMP #### [place] [address] [place] #### THYROID PROF II #### [facility] , GFR/1.73 sq M.predicted MDRD (S/P/Bld) [Vol rate/Area] mL/min/{1.73_m2} Normal [facility] Comment on above: Order Comment: Reaso n for Exam Bipolar 2 disorder, major depressive episode;Medication shira Performed By: #### C BC, CMP #### [place] [address] [place] #### THYROID PROF II #### [facility] , Globulin (S) [Mass/Vol] 3.0 g/dL Normal [facility] Comment on above: Order Comment: Reaso n for Exam Bipolar 2 disorder, major depressive episode;Medication shira Performed By: #### C BC, CMP #### [place] [address] [place] #### THYROID PROF II #### [facility] , Glucose [Mass/Vol] 87 mg/dL Normal 70-100 [facility] Comment on above: Order Comment: Reaso n for Exam Bipolar 2 disorder, major depressive episode;Medication shira Result Comment: [facility] Glucose Reference Range is dependent on time and content of last meal. Glucose of more than 200 mg/dL in a nonstressed, ambulatory subject supports the diagnosis of Diabetes Mellitus. ADA recommended reference range Performed By: #### C BC, CMP #### [place] [address] [place] #### THYROID PROF II #### [facility] , Potassium [Moles/Vol] 4.0 mmol/L Normal 3.5-5.1 [facility] Comment on above: Order Comment: Reaso n for Exam Bipolar 2 disorder, major depressive episode;Medication shira Performed By: #### C BC, CMP #### [place] [address] [place] #### THYROID PROF II #### [facility] , Protein [Mass/Vol] 7.1 g/dL Normal 6.4-8.9 [facility] Comment on above: Order Comment: Reaso n for Exam Bipolar 2 disorder, major depressive episode;Medication shira Performed By: #### C BC, CMP #### [place] [address] [place] #### THYROID PROF II #### [facility] , Sodium [Moles/Vol] 136 mmol/L Normal 136-145 [facility] Comment on above: Order Comment: Reaso n for Exam Bipolar 2 disorder, major depressive episode;Medication shira Performed By: #### C BC, CMP #### [facility] [address] [place] [address] [place] #### THYROID PROF II #### [facility] , Urea nitrogen [Mass/Vol] 7 mg/dL Normal 7-25 [facility] Comment on above: Order Comment: Reaso n for Exam Bipolar 2 disorder, major depressive episode;Medication shira Performed By: #### C BC, CMP #### [facility] [address] [place] [address] [place] #### THYROID PROF II #### [facility] , Creatinine [Mass/volume] in Serum or PlasmaOrdered By: Rosa Lauren on 09-04-2024 Creatinine [Mass/Vol] Creatinine [Mass/v olume] in Serum or Plasma 0.60-1.20 [facility] Eosinophils Auto (Bld) [#/Vo l]Ordered By: Rosa Lauren on 09-04-2024 Eosinophils (Bld) [#/Vol] Automated eosinophil count 0.0-0.45 [facility] Eosinophils/100 WBC Auto (Bl d)Ordered By: Rosa Lauren on 09-04-2024 Eosinophils/100 WBC (Bld) Automated eosinophil % . [facility] Erythrocyte distribution wid th Auto (RBC) [Ratio]Ordered By: Rosa Lauren on 09-04-2024 Erythrocyte distribution width (RBC) [Ratio] Erythrocyte distribution width [Ratio] by Automated count 11.9-15.3 [facility] Globulin Calc (S) [Mass/Vol] Ordered By: Rosa Lauren on 09-04-2024 Globulin (S) [Mass/Vol] Serum globulin measurement by calculation (mass/volume) [facility] Glucose [Mass/volume] in Ser um or PlasmaOrdered By: Rosa Lauren on 09-04-2024 Glucose [Mass/Vol] Glucose [Mass/volume ] in Serum or Plasma 70-100 [facility] Comment on above: ADA recommended refe rence rangeRandom Glucose Reference Range is dependent on time and content of last meal. Glucose of more than 200 mg/dL in a nonstressed, ambulatory subject supports the diagnosis of Diabetes Mellitus. Hematocrit Auto (Bld) [Volum e fraction]Ordered By: Rosa Lauren on 09-04-2024 Hematocrit (Bld) [Volume fraction] Hematocrit [Volume Fraction] of Blood by Automated count 34.0-46.4 [facility] Hemoglobin [Mass/volume] in BloodOrdered By: Rosa Lauren on 09-04-2024 Hemoglobin (Bld) [Mass/Vol] Hemoglobin [Mass/volume] in Blood 11.8-15.4 [facility] Leukocytes [#/volume] correc moshe for nucleated erythrocytes in Blood by Automated counOrdered By: Rosa Lauren on 09-04-2024 WBC corrected for nucl RBC Auto (Bld) [#/Vol] Leukocytes [#/volume] corrected for nucleated erythrocytes in Blood by Automated coun 3.8-11.6 [facility] Lymphocytes Auto (Bld) [#/Vo l]Ordered By: Rosa Lauren on 09-04-2024 Lymphocytes (Bld) [#/Vol] Lymphocytes [#/volume] in Blood by Automated count 1.00-4.8 [facility] Lymphocytes/100 WBC Auto (Bl d)Ordered By: Rosa Lauren on 09-04-2024 Lymphocytes/100 WBC (Bld) Lymphocytes/100 leukocytes in Blood by Automated count . [facility] MCH Auto (RBC) [Entitic mass ]Ordered By: Rosa Lauren on 09-04-2024 MCH (RBC) [Entitic mass] MCH [Entitic mass] by Automated count 24.7-34.3 [facility] MCHC Auto (RBC) [Mass/Vol]Or dered By: Rosa Lauren on 09-04-2024 MCHC (RBC) [Mass/Vol] MCHC [Mass/volume] by Automated count 32.0-35.0 [facility] MCV Auto (RBC) [Entitic vol] Ordered By: Rosa Lauren on 09-04-2024 MCV (RBC) [Entitic vol] MCV [Entitic vol ume] by Automated count 80-100 [facility] Monocytes Auto (Bld) [#/Vol] Ordered By: Rosa Lauren on 09-04-2024 Monocytes (Bld) [#/Vol] Automated blood monocyte count 0.0-0.8 [facility] Monocytes/100 WBC Auto (Bld) Ordered By: Rosa Lauren on 09-04-2024 Monocytes/100 WBC (Bld) Automated monocyte % . [facility] Neutrophils Auto (Bld) [#/Vo l]Ordered By: Rosa Lauren on 09-04-2024 Neutrophils (Bld) [#/Vol] Neutrophils [#/volume] in Blood by Automated count 1.8-7.7 [facility] Neutrophils/100 WBC Auto (Bl d)Ordered By: Rosa Lauren on 09-04-2024 Neutrophils/100 WBC (Bld) Automated neutrophil % . [facility] No Panel InformationOrdered By: Rosa Lauren on 09-04-2024 Estimated GFR (CKD-EPI) > 60.0 mL/Min [facility] Creatinine Clearance (Chem N/A [facility] Nucleated erythrocytes [Pres ence] in Blood by Automated countOrdered By: Rosa Lauren on 09-04-2024 Nucleated RBC Auto Ql (Bld) Nucleated erythrocytes [Presence] in Blood by Automated count 0-0.5 [facility] Platelet mean volume Auto (B ld) [Entitic vol]Ordered By: Rosa Lauren on 09-04-2024 Platelet mean volume (Bld) [Entitic vol] Platelet mean volume [Entitic volume] in Blood by Automated count 6.3-10.7 [facility] Platelets Auto (Bld) [#/Vol] Ordered By: Rsoa Lauren on 09-04-2024 Platelets (Bld) [#/Vol] Platelets [#/vol ume] in Blood by Automated count 150-450 [facility] Potassium [Moles/volume] in Serum or PlasmaOrdered By: Rosa Lauren on 09-04-2024 Potassium [Moles/Vol] Potassium [Moles/v olume] in Serum or Plasma 3.5-5.1 [facility] Protein [Mass/volume] in Ser um or PlasmaOrdered By: Rosa Lauren on 09-04-2024 Protein [Mass/Vol] Protein [Mass/volume ] in Serum or Plasma 6.4-8.9 [facility] RBC Auto (Bld) [#/Vol]Ordere d By: Rosa Lauren on 09-04-2024 RBC (Bld) [#/Vol] Erythrocytes [#/volu me] in Blood by Automated count High 3.60-5.00 [facility] Serum or plasma albumin/glob ulin mass ratioOrdered By: Rosa Lauren on 09-04-2024 Albumin/Globulin [Mass ratio] Serum or plasma albumin/globulin mass ratio [facility] Serum or plasma anion gap de terminationOrdered By: Rosa Lauren on 09-04-2024 Anion gap [Moles/Vol] Serum or plasma an ion gap determination 6.0-15.0 [facility] Sodium [Moles/volume] in Ser um or PlasmaOrdered By: Rosa Lauren on 09-04-2024 Sodium [Moles/Vol] Sodium [Moles/volume ] in Serum or Plasma 136-145 [facility] Thyroid Profile IIon 025 Free Thyroxine Index 2.1 Normal 1.2-4.9 [facility] Comment on above: Order Comment: Reaso n for Exam Bipolar 2 disorder, major depressive episode;Medication shira Performed By: #### C BC, CMP #### [facility] [address] [place] [address] [place] #### THYROID PROF II #### [facility] , [facility] Triiodothyronine,(T3) 156 ng/dL Normal 71-180 [facility] Comment on above: Order Comment: Reaso n for Exam Bipolar 2 disorder, major depressive episode;Medication shira Result Comment: Perf ormed at: CB - [facility] [address] [id number] [place] Operator: Uri Unger PhD, Phone: [phone] Performed By: #### C BC, CMP #### [facility] [address] [place] [address] [place] #### THYROID PROF II #### [facility] , T4 [Mass/Vol] 7.4 ug/dL Normal 4.5-12.0 [facility] Comment on above: Order Comment: Reaso n for Exam Bipolar 2 disorder, major depressive episode;Medication shira Performed By: #### C BC, CMP #### [place] [address] [place] #### THYROID PROF II #### [facility] , Triiodothryronine (T3) Uptake 28 % Normal 24-39 [facility] Comment on above: Order Comment: Reaso n for Exam Bipolar 2 disorder, major depressive episode;Medication shira Performed By: #### C BC, CMP #### [facility] [address] [place] [address] [place] #### THYROID PROF II #### [facility] , TSH Qn 1.130 m[IU]/L Normal 0.450-4.50 0 [facility] Comment on above: Order Comment: Reaso n for Exam Bipolar 2 disorder, major depressive episode;Medication shira Result Comment: PERF ORMED BY: [place] [address] PATHOLOGIST [employer] ABEL MENDOZA M.D. Performed By: #### C BC, CMP #### [address] #### THYROID PROF II #### [facility] , US pelvic completeon 025 US pelvic complete [facility] [place] [address] [place] [address] Ultrasound Report Signed Patient: Elizabeth Hernandez MR#: [id number] : 2000 Acct:[id number] Age/Sex: 24 / F ADM Date: 09/04/24 Loc: Room: Type: [facility] Attending Dr: jE Ordaz MD Ordering Provider: EJ ORDAZ MD Date of Service: 09/04/24 US/US pelvic complete: dysmenorrhea; endometriosis ([id number]) US/US transvaginal: N80.9, N94.6 Copies to: EJ ORDAZ MD Pelvic ultrasound. Reason for exam: Dysmenorrhea Comparison: none Technique: Transabdominal imaging of the uterus and ovaries was performed. Transvaginal imaging of the uterus and ovaries was also obtained. Additional spectral Doppler analysis of the ovaries was also obtained. Findings: Uterus measures 8.0 x 2.4 x 5.0 cm. No measurable fibroid. Endometrium measures 12 mm with a focal echogenic area measuring 2 mm. No free fluid is noted. Right ovary measures 1.7 x 2.1 x 2.5 cm. Left ovary measures 2.0 x 2.4 x 1.8 cm. No adnexal mass or cyst. Normal arterial and venous Doppler waveforms. US/US transvaginal Impression: Echogenic focus involving the endometrium of uncertain clinical significance. This measures 2 mm. A polyp cannot BE excluded. Otherwise unremarkable study. Impression dictated by: Sumanth Latham Jr., D.OKristian 09/04/2024 3:00 PM Dictation Location: [place] [address] Tech: Anette Al Transcribed By: ROSEY 09/04/24 1500 Dictated By: Sumanth Latham Jr, DO 09/04/24 1457 Signed By: 09/04/24 1500 Normal [facility] Urea nitrogen [Mass/volume] in Serum or PlasmaOrdered By: Rosa Lauren on 09-04-2024 Urea nitrogen [Mass/Vol] Urea nitrogen [Mass/volume] in Serum or Plasma 11-20 [facility] WBC Auto (Bld) [#/Vol]Ordere d By: Rosa Lauren on 09-04-2024 WBC (Bld) [#/Vol] Leukocytes [#/volume ] in Blood by Automated count 3.8-11.6 [facility] Human papilloma virus 16+18+ 31+33+35+39+45+51+52+56+58+59+66+68 DNA [Presence] in CerOrdered By: EJ ORDAZ on 08-25-2024 HPV 16+18+31+33+35+39+45+51 +52+56+58+59+66+68 DNA Probe+sig amp Ql (Cvx) Human papilloma virus 16+18+31+33+35+39+45+51+ 52+56+58+59+66+68 DNA [Presence] in Cer Negative [facility] Comment on above: This nucleic acid am plification test detects fourteen high-risk HPV types (16,18,31,33,35,39,45,51,52,56,58,59,66,68)without differentiation.Performed at: [address] [id number] Director: Ivy Salinas MD, Phone: [phone] at: =[address] [id number] Director: Ivy Salinas MD, Phone: [phone] IGP, Aptima HPV, rfx 16/18,4 5on 08-25-2024 PAP HPV Aptima Negative Normal Negative [facility] Comment on above: Result Comment: This nucleic acid amplification test detects fourteen high- risk HPV types (16,18,31,33,35,39,45,51,52,56,58,59,66,68) without differentiation. Performed at: [address] [id number] Mud [place] Operator: Ivy Salinas MD, Phone: [phone] Performed at: =[address] [id number] Mud [place] Operator: Ivy Salinas MD, Phone: [phone] PERFORMED BY: [address] [address] PATHOLOGIST ASSEMBLY LINE DRIVER ABEL MENDOZA M.D. Performed By: #### P AP [id number] #### [facility] , Pap Image Guided Note Normal . [facility] Comment on above: Result Comment: TEST S RESULT FLAG UNITS REF RANGE LAB Clinician Provided Cytology Information No. of containers..01 ThinPrep Vial DIAGNOSIS: 01 NEGATIVE FOR INTRAEPITHELIAL LESION OR MALIGNANCY. Specimen adequacy: 01 Satisfactory for evaluation. No endocervical component is identified. Performed by: Valentina Ridley, Model And Mold Maker (ASCP) . 01 Note: Note 01 The Pap smear is a screening test designed to aid in the detection of premalignant and malignant conditions of the uterine cervix. It is not a diagnostic procedure and should not be used as the sole means of detecting cervical cancer. Both false-positive and false-negative reports do occur. Test Methodology: Note 01 This liquid based ThinPrep(R) pap test was screened with the use of an image guided system. HPV Genotype Reflex Note 01 Criteria not met, HPV Genotype not performed. FLAG LEGEND: L-Low Normal,H-High Normal,LL-Alert Low,HH-Alert High <-Panic Low,>-Panic High,A-Abnormal,AA-Critical Abnormal Performed at: 01 [facility] [address] [place] [address] Ivy Salinas MD, Performed By: #### P AP [id number] #### [facility] , No Panel InformationOrdered By: EJ ORDAZ on 08-25-2024 IG Pap w/Ct-Ng & HPV Rflx (Off-Site Note . [facility] Comment on above: TESTS RESULT FLAG UN ITS REF RANGE LAB - Clinician Provided Cytology Information No. of containers..01 ThinPrep VialDIAGNOSIS: 01 NEGATIVE FOR INTRAEPITHELIAL LESION OR MALIGNANCY.Specimen adequacy: 01 Satisfactory for evaluation. No endocervical component is identified.Performed by: 01 Xi Khai, Model And Mold Maker (ASCP). 01Note: Note 01 The Pap smear is a screening test designed to aid in the detection of premalignant and malignant conditions of the uterine cervix. It is not a diagnostic procedure and should not be used as the sole means of detecting cervical cancer. Both false-positive and false-negative reports do occur.Test Methodology: Note 01 This liquid based ThinPrep(R) pap test was screened with the use of an image guided system.HPV Genotype Reflex Note 01 Criteria not met, HPV Genotype not performed. -------- FLAG LEGEND: L-Low Normal,H-High Normal,LL-Alert Low,HH-Alert High <-Panic Low,>-Panic High,A-Abnormal,AA-Critical Abnormal ------Performed at:[address] [address] Ivy Salinas MD, [facility] abdomen pelvis [place] [address] CT Scan Report Signed Patient: Elizabeth Hernandez MR#: [id number] : 2000 Acct:[id number] Age/Sex: 24 / F ADM Date: 08/24/24 Loc: [facility] Room: Type: [facility] Attending Dr: Carole Salas APRN Copies to: Carole Salas APRN Ordering Provider: Carole Salas APRN Date of Service: 08/24/24 CT/CT abdomen pelvis wo con: R10.32 - Left lower quadrant pain CT ABDOMEN AND PELVIS WITHOUT CONTRAST COMPARISON: 12/02/2023 CLINICAL DATA: Left lower quadrant pain for the past month. Spiral images were obtained through the abdomen and pelvis without contrast. This CT exam was performed using one or more following dose reduction techniques: Automated exposure control, adjustment of the mA and/or kV according to patient size, or use of iterative reconstruction technique. Limited cuts through the lung bases show no contributory findings. Evaluation of the intra-abdominal organs is slightly limited by the absence of contrast. The gallbladder is partially contracted. No calcified gallstones are identified. The liver, spleen, pancreas and adrenal glands show no acute findings. No renal calculi or hydronephrosis are seen. The abdominal aorta is normal caliber there are small retroperitoneal and mesenteric lymph nodes. No ascites is present. Small bowel loops are normal caliber. There is stool throughout the colon. There are no acute bony findings. Images through the pelvis show nondistended small bowel. No appendiceal inflammation is present. There is air and mild stool at the distal colon. No diverticular disease is seen. The uterus is levoverted. There are no dominant adnexal cysts. No urinary bladder abnormalities are seen. There are small lymph nodes in the groin region on both sides as well as the mesentery of the right upper pelvis. CT/CT abdomen pelvis wo con IMPRESSION: NO BOWEL OR URINARY TRACT OBSTRUCTION. NO ACUTE FINDINGS. Impression dictated by: Lorena Noel M.D. 08/24/2024 12:47 PM Dictation Location: [place] [address] Transcribed By: [facility] 08/24/24 1247 Dictated By: Lorena Noel MD 08/24/24 1239 Signed By: 08/24/24 1247 Normal [facility] XR cervical spine 5V*on 03-30 XR cervical spine 5V* [facility] [place] [address] [place] [address] XRay Report Signed Patient: Elizabeth Hernandez MR#: [id number] : 2000 Acct:[id number] Age/Sex: 23 / F ADM Date: 04/17/24 Loc: ER Room: Type: [facility] ER Attending Dr: Copies to: Stacy [...] Jeremi Altman M.D.04/17/2024 1:59 PM Dictation Location: [place] [address] Transcribed By: [facility] 04/17/24 1359 Dictated By: Jeremi Altman DO 04/17/24 1358 Signed By: 04/17/24 1359 Normal [facility] XR chest 2V*on 02-24-2024 XR chest 2V* [facility] [address] [place] [address] XRay Report Signed Patient: Elizabeth Hernandez MR#: [id number] : 2000 Acct:[id number] Age/Sex: 23 / F ADM Date: 02/24/24 Loc: [facility] Room: Type: [facility] Attending Dr: Leena Lovell DO Copies to: Leena Lovell DO Ordering Provider: Leena Lovell DO Date of Service: 02/24/24 XR/XR chest 2V*: R05.9 - Cough, unspecified Plain film chest 2 view HISTORY: Productive cough. Shortness of breath COMPARISON: 05/14/23 FINDINGS: SUPPORT DEVICES: None POSTSURGICAL CHANGES: None HEART: Within normal limits PULMONARY SHALA: Within normal limits MEDIASTINUM: Unremarkable LUNGS AND PLEURA: No acute lung process, pleural effusion or pneumothorax identified. BONY STRUCTURES: Intact ADDITIONAL FINDINGS None XR/XR chest 2V* IMPRESSION: No acute process. Impression dictated by: Jeremi Altman M.D.02/24/2024 3:01 PM Dictation Location: [facility] Transcribed By: ROSEY 02/24/24 1501 Dictated By: Jeremi Altman DO 02/24/24 1501 Signed By: 02/24/24 1501 Normal [facility] COVID Cepheidon 02-15-2024 SARS-CoV-2 (COVID-19) RNA KASHIF+probe Ql (Unsp spec) Negative [facility] No Panel Informationon 02-14 POC Influenza A (PCR) Negative [facility] POC Influenza B (PCR) Negative [facility] No Panel InformationOrdered By: Macrina Salas on 02-15-2024 Quick Strep (POC) [facility] Automated basophil %Ordered By: Keith Boyd on 02-03-2024 Basophils/100 WBC (Bld) 0.4 % Normal . [facility] Comment on above: Order Comment: Reaso n for Exam Bipolar 2 disorder, major depressive episode;Medication shira Performed By: #### C BC, CMP #### [facility] [address] [place] [address] [place] #### THYROID PROF II #### [facility] , Automated basophil countOrde red By: Keith Boyd on 02-03-2024 Basophils (Bld) [#/Vol] 0.0 10*3/uL Normal 0.0-0.2 [facility] Comment on above: Order Comment: Reaso n for Exam Bipolar 2 disorder, major depressive episode;Medication shira Result Comment: PERF ORMED BY: [place] [address] PATHOLOGIST ASSEMBLY LINE DRIVER CHAYO GILL M.D. Performed By: #### C BC, CMP #### [facility] [address] [place] [address] [place] #### THYROID PROF II #### [facility] , Automated blood monocyte cou ntOrdered By: Keith Boyd on 02-03-2024 Monocytes (Bld) [#/Vol] 0.5 10*3/uL Normal 0.0-0.8 [facility] Comment on above: Order Comment: Reaso n for Exam Bipolar 2 disorder, major depressive episode;Medication shira Performed By: #### C BC, CMP #### [facility] [address] [place] [address] [place] #### THYROID PROF II #### [facility] , Automated eosinophil %Ordere d By: Keith Sandersgabriella on 02-03-2024 Eosinophils/100 WBC (Bld) 3.2 % Normal . [facility] Comment on above: Order Comment: Reaso n for Exam Bipolar 2 disorder, major depressive episode;Medication shira Performed By: #### C BC, CMP #### [place] [address] [place] #### THYROID PROF II #### [facility] , Automated eosinophil countOr dered By: Keith Deb on 02-03-2024 Eosinophils (Bld) [#/Vol] 0.3 10*3/uL Normal 0.0-0.45 [facility] Comment on above: Order Comment: Reaso n for Exam Bipolar 2 disorder, major depressive episode;Medication shira Performed By: #### C BC, CMP #### [place] [address] [place] #### THYROID PROF II #### [facility] , Automated monocyte %Ordered By: Keith Deb on 02-03-2024 Monocytes/100 WBC (Bld) 6.5 % Normal . [facility] Comment on above: Order Comment: Reaso n for Exam Bipolar 2 disorder, major depressive episode;Medication shira Performed By: #### C BC, CMP #### [place] [address] [place] #### THYROID PROF II #### [facility] , Automated neutrophil %Ordere d By: Keith Deb on 02-03-2024 Neutrophils/100 WBC (Bld) 58.0 % Normal . [facility] Comment on above: Order Comment: Reaso n for Exam Bipolar 2 disorder, major depressive episode;Medication shira Performed By: #### C BC, CMP #### [place] [address] [place] #### THYROID PROF II #### [facility] , Calcium [Mass/volume] in Ser um or PlasmaOrdered By: Keith Boyd on 02-03-2024 Calcium [Mass/Vol] 9.1 mg/dL Normal 8.6-10.3 [facility] Comment on above: Order Comment: Reaso n for Exam Bipolar 2 disorder, major depressive episode;Medication shira Performed By: #### C BC, CMP #### [facility] [address] [place] [address] [place] #### THYROID PROF II #### [facility] , Carbon dioxide, total [Moles /volume] in Serum or PlasmaOrdered By: Keith Boyd on 02-03-2024 CO2 [Moles/Vol] 25.6 mmol/L Normal 21.0-31.0 [facility] Comment on above: Order Comment: Reaso n for Exam Bipolar 2 disorder, major depressive episode;Medication shira Performed By: #### C BC, CMP #### [place] [address] [place] #### THYROID PROF II #### [facility] , Chloride [Moles/volume] in S gerry or PlasmaOrdered By: Keith Boyd on 02-03-2024 Chloride [Moles/Vol] 108 mmol/L High 98-107 [facility] Comment on above: Order Comment: Reaso n for Exam Bipolar 2 disorder, major depressive episode;Medication shira Performed By: #### C BC, CMP #### [facility] [address] [place] [address] [place] #### THYROID PROF II #### [facility] , Cholesterol [Mass/volume] in Serum or PlasmaOrdered By: Keith Boyd on 02-03-2024 Cholesterol [Mass/Vol] 140 mg/dL Normal 140-200 [facility] Comment on above: Chol less than 200 m g/dl low riskChol 201-239 mg/dl borderline riskChol 240 mg/dl and greater high risk Order Comment: Reaso n for Exam Bipolar 2 disorder, major depressive episode;Medication shira Result Comment: Chol less than 200 mg/dl low risk Chol 201-239 mg/dl borderline risk Chol 240 mg/dl and greater high risk Performed By: #### C BC, CMP #### [facility] [address] [place] [address] [place] #### THYROID PROF II #### [facility] , Cholesterol in LDL Calc [Mas s/Vol]Ordered By: Keith Boyd on 02-03-2024 Cholesterol in LDL [Mass/Vol] 86 mg/dL 0-100 [facility] Comment on above: LDL ATP III CLASSIFI CATIONLDL less than 100 mg/dL OptimalLDL 100-129 mg/dL Near or above optimalLDL 130-159 mg/dL Borderline highLDL 160-189 mg/dL HighLDL greater than 189 mg/dL Very high Cholesterol in VLDL Calc [Ma ss/Vol]Ordered By: Keith Boyd on 02-03-2024 Cholesterol in VLDL [Mass/Vol] 11 mg/dL [facility] Creatinine [Mass/volume] in Serum or PlasmaOrdered By: Keith Boyd on 02-03-2024 Creatinine [Mass/Vol] 0.72 mg/dL Normal 0.60-1.20 [facility] Comment on above: Order Comment: Reaso n for Exam Bipolar 2 disorder, major depressive episode;Medication shira Performed By: #### C BC, CMP #### [place] [address] [place] #### THYROID PROF II #### [facility] , Employee Basic Metabolic [place] 02-03-2024 GFR/1.73 sq M.predicted MDRD (S/P/Bld) [Vol rate/Area] mL/min/{1.73_m2} Normal [facility] Comment on above: Order Comment: Reaso n for Exam Bipolar 2 disorder, major depressive episode;Medication shira Performed By: #### C BC, CMP #### [place] [address] [place] #### THYROID PROF II #### [facility] , Employee Complete Blood Coun ton 10-07-2024 Mean Corpuscular HGB Conc 33.6 g/dL Normal 32.0-35.0 [facility] Comment on above: Order Comment: Reaso n for Exam Bipolar 2 disorder, major depressive episode;Medication shira Performed By: #### C BC, CMP #### [facility] [address] [place] [address] [place] #### THYROID PROF II #### [facility] , NRBC% 0.1 /100{WBC} Normal 0-0.5 [facility] Comment on above: Order Comment: Reaso n for Exam Bipolar 2 disorder, major depressive episode;Medication shira Performed By: #### C BC, CMP #### [place] [address] [place] #### THYROID PROF II #### [facility] , Employee Lipid Profileon LDL Cholesterol,Calculated 86 mg/dL Normal 0-100 [facility] Comment on above: Order Comment: Reaso n for Exam Bipolar 2 disorder, major depressive episode;Medication shira Result Comment: LDL ATP III CLASSIFICATION LDL less than 100 mg/dL Optimal LDL 100-129 mg/dL Near or above optimal LDL 130-159 mg/dL Borderline high LDL 160-189 mg/dL High LDL greater than 189 mg/dL Very high Performed By: #### C BC, CMP #### [place] [address] [place] #### THYROID PROF II #### [facility] , Triglyceride w/Reflex 59 mg/dL Normal 0-149 [facility] Comment on above: Order Comment: Reaso n for Exam Bipolar 2 disorder, major depressive episode;Medication shira Result Comment: TRIG ATP III CLASSIFICATION TRIG less than 150 mg/dL Normal TRIG 150-199 mg/dL Borderline high TRIG 200-500 mg/dL High TRIG greater than 500 mg/dL Very high Standard traceable to the Center for Disease Conrtrol and Prevention (CDC) test method. Performed By: #### C BC, CMP #### [place] [address] [place] #### THYROID PROF II #### [facility] , VLDL CHOLESTEROL 11 mg/dL Normal [facility] Comment on above: Order Comment: Reaso n for Exam Bipolar 2 disorder, major depressive episode;Medication shira Performed By: #### C BC, CMP #### [address] #### THYROID PROF II #### [facility] , Employee Thyroid Stim Hormon marley 02-03-2024 Employee Thyroid Stim Hormone 1.67 u[iU]/mL Normal 0.45-5.33 [facility] Comment on above: Order Comment: Reaso n for Exam Bipolar 2 disorder, major depressive episode;Medication shira Result Comment: PERF ORMED BY: [place] [address] PATHOLOGIST ASSEMBLY LINE DRIVER CHAYO GILL M.D. Performed By: #### C BC, CMP #### [place] [address] [place] #### THYROID PROF II #### [facility] , Erythrocyte distribution wid th [Ratio] by Automated countOrdered By: Keith Boyd on 02-03-2024 Erythrocyte distribution width (RBC) [Ratio] 14.0 % Normal 11.9-15.3 [facility] Comment on above: Order Comment: Reaso n for Exam Bipolar 2 disorder, major depressive episode;Medication shira Performed By: #### C BC, CMP #### [place] [address] [place] #### THYROID PROF II #### [facility] , Erythrocytes [#/volume] in B lood by Automated countOrdered By: Keith Boyd on 02-03-2024 RBC (Bld) [#/Vol] 4.84 10*6/uL Normal 3.60-5.00 [facility] Comment on above: Order Comment: Reaso n for Exam Bipolar 2 disorder, major depressive episode;Medication shira Performed By: #### C BC, CMP #### [place] [address] [place] #### THYROID PROF II #### [facility] , Glucose [Mass/volume] in Ser um or PlasmaOrdered By: Keith Boyd on 02-03-2024 Glucose [Mass/Vol] 95 mg/dL Normal 70-100 [facility] Comment on above: Order Comment: Reaso n for Exam Bipolar 2 disorder, major depressive episode;Medication shira Performed By: #### C BC, CMP #### [facility] [address] [place] [address] [place] #### THYROID PROF II #### [facility] , Hematocrit [Volume Fraction] of Blood by Automated countOrdered By: Keith Boyd on 02-03-2024 Hematocrit (Bld) [Volume fraction] 39.5 % Normal 34.0-46.4 [facility] Comment on above: Order Comment: Reaso n for Exam Bipolar 2 disorder, major depressive episode;Medication shira Performed By: #### C BC, CMP #### [place] [address] [place] #### THYROID PROF II #### [facility] , Hemoglobin [Mass/volume] in BloodOrdered By: Keith Boyd on 02-03-2024 Hemoglobin (Bld) [Mass/Vol] 13.3 g/dL Normal 11.8-15.4 [facility] Comment on above: Order Comment: Reaso n for Exam Bipolar 2 disorder, major depressive episode;Medication shira Performed By: #### C BC, CMP #### [facility] [address] [place] [address] [place] #### THYROID PROF II #### [facility] , Leukocytes [#/volume] correc moshe for nucleated erythrocytes in Blood by Automated counOrdered By: Keith Boyd on 02-03-2024 WBC corrected for nucl RBC Auto (Bld) [#/Vol] 8.3 10*3/uL 3.8-11.6 [facility] Leukocytes [#/volume] in Blo od by Automated countOrdered By: Keith Boyd on 02-03-2024 WBC (Bld) [#/Vol] 8.3 10*3/uL Normal 3.8-11.6 [facility] Comment on above: Order Comment: Reaso n for Exam Bipolar 2 disorder, major depressive episode;Medication shira Performed By: #### C BC, CMP #### [place] [address] [place] #### THYROID PROF II #### [facility] , Lymphocytes [#/volume] in Bl ood by Automated countOrdered By: Keith Boyd on 02-03-2024 Lymphocytes (Bld) [#/Vol] 2.6 10*3/uL Normal 1.00-4.8 [facility] Comment on above: Order Comment: Reaso n for Exam Bipolar 2 disorder, major depressive episode;Medication shira Performed By: #### C BC, CMP #### [place] [address] [place] #### THYROID PROF II #### [facility] , Lymphocytes/100 leukocytes i n Blood by Automated countOrdered By: Keith Boyd on 02-03-2024 Lymphocytes/100 WBC (Bld) 31.9 % Normal . [facility] Comment on above: Order Comment: Reaso n for Exam Bipolar 2 disorder, major depressive episode;Medication shira Performed By: #### C BC, CMP #### [place] [address] [place] #### THYROID PROF II #### [facility] , MCH [Entitic mass] by Automa moshe countOrdered By: Keith Boyd on 02-03-2024 MCH (RBC) [Entitic mass] 27.4 pg Normal 24.7-34.3 [facility] Comment on above: Order Comment: Reaso n for Exam Bipolar 2 disorder, major depressive episode;Medication shira Performed By: #### C BC, CMP #### [place] [address] [place] #### THYROID PROF II #### [facility] , MCHC Auto (RBC) [Mass/Vol]Or dered By: Keith Boyd on 02-03-2024 MCHC (RBC) [Mass/Vol] 33.6 g/dL 32.0-35.0 [facility] MCV [Entitic volume] by Auto mated countOrdered By: Keith Boyd on 02-03-2024 MCV (RBC) [Entitic vol] 81.6 fL Normal 80-100 [facility] Comment on above: Order Comment: Reaso n for Exam Bipolar 2 disorder, major depressive episode;Medication shira Performed By: #### C BC, CMP #### [place] [address] [place] #### THYROID PROF II #### [facility] , Neutrophils [#/volume] in Bl ood by Automated countOrdered By: Keith Boyd on 02-03-2024 Neutrophils (Bld) [#/Vol] 4.8 10*3/uL Normal 1.8-7.7 [facility] Comment on above: Order Comment: Reaso n for Exam Bipolar 2 disorder, major depressive episode;Medication shira Performed By: #### C BC, CMP #### [place] [address] [place] #### THYROID PROF II #### [facility] , No Panel InformationOrdered By: Keith Boyd on 02-03-2024 Estimated GFR (CKD-EPI) > 60.0 mL/Min [facility] Creatinine Clearance (Chem N/A [facility] Nucleated erythrocytes [Pres ence] in Blood by Automated countOrdered By: Keith Boyd on 02-03-2024 Nucleated RBC Auto Ql (Bld) 0.1 /100{WBC} 0-0.5 [facility] Platelet mean volume [Entiti c volume] in Blood by Automated countOrdered By: Keith Boyd on 02-03-2024 Platelet mean volume (Bld) [Entitic vol] 8.3 fL Normal 6.3-10.7 [facility] Comment on above: Order Comment: Reaso n for Exam Bipolar 2 disorder, major depressive episode;Medication shira Performed By: #### C BC, CMP #### [facility] [address] [place] [address] [place] #### THYROID PROF II #### [facility] , Platelets [#/volume] in Bloo d by Automated countOrdered By: Keith Boyd on 02-03-2024 Platelets (Bld) [#/Vol] 263 10*3/uL Normal 150-450 [facility] Comment on above: Order Comment: Reaso n for Exam Bipolar 2 disorder, major depressive episode;Medication shira Performed By: #### C BC, CMP #### [facility] [address] [place] [address] [place] #### THYROID PROF II #### [facility] , Potassium [Moles/volume] in Serum or PlasmaOrdered By: Keith Boyd on 02-03-2024 Potassium [Moles/Vol] 4.4 mmol/L Normal 3.5-5.1 [facility] Comment on above: Order Comment: Reaso n for Exam Bipolar 2 disorder, major depressive episode;Medication shira Performed By: #### C BC, CMP #### [facility] [address] [place] [address] [place] #### THYROID PROF II #### [facility] , Serum or plasma anion gap de terminationOrdered By: Keith Boyd on 02-03-2024 Anion gap [Moles/Vol] 9.8 mmol/L Normal 6.0-15.0 [facility] Comment on above: Order Comment: Reaso n for Exam Bipolar 2 disorder, major depressive episode;Medication shira Performed By: #### C BC, CMP #### [facility] [address] [place] [address] [place] #### THYROID PROF II #### [facility] , Serum or plasma high density lipoprotein (HDL) cholesterol measurementOrdered By: Keith Boyd on 02-03-2024 Cholesterol in HDL [Mass/Vol] 42 mg/dL Normal 23-92 [facility] Comment on above: HDL CHOL ATP-III CLA SSIFICATION Cardiovascular RiskHDL > or equal to 60 mg/dL LOWHDL < 40 mg/dL HIGH Order Comment: Reaso n for Exam Bipolar 2 disorder, major depressive episode;Medication shira Result Comment: HDL CHOL ATP-III CLASSIFICATION Cardiovascular Risk HDL > or equal to 60 mg/dL LOW HDL < 40 mg/dL HIGH Performed By: #### C BC, CMP #### [place] [address] [place] #### THYROID PROF II #### [facility] , Serum or plasma total choles terol/high density lipoprotein (HDL) cholesterol mass ratOrdered By: Keith Boyd on 02-03-2024 Cholesterol.total/Cat sterol in HDL [Mass ratio] 3.3 {ratio} Normal <5.0 [facility] Comment on above: Order Comment: Reaso n for Exam Bipolar 2 disorder, major depressive episode;Medication shira Performed By: #### C BC, CMP #### [place] [address] [place] #### THYROID PROF II #### [facility] , Sodium [Moles/volume] in Ser um or PlasmaOrdered By: Keith Boyd on 02-03-2024 Sodium [Moles/Vol] 139 mmol/L Normal 136-145 [facility] Comment on above: Order Comment: Reaso n for Exam Bipolar 2 disorder, major depressive episode;Medication shira Performed By: #### C BC, CMP #### [place] [address] [place] #### THYROID PROF II #### [facility] , Thyrotropin [Units/volume] i n Serum or PlasmaOrdered By: Keith Boyd on 02-03-2024 TSH Qn 1.67 m[IU]/L 0.45-5.33 [facility] Triglyceride [Mass/volume] i n Serum or PlasmaOrdered By: Keith Boyd on 02-03-2024 Triglyceride [Mass/Vol] 59 mg/dL 0-149 [facility] Comment on above: TRIG ATP III CLASSIF ICATIONTRIG less than 150 mg/dL NormalTRIG 150-199 mg/dL Borderline highTRIG 200-500 mg/dL High TRIG greater than 500 mg/dL Very highStandard traceable to the Center for Disease Conrtrol and Prevention (CDC) test method. Urea nitrogen [Mass/volume] in Serum or PlasmaOrdered By: Keith Boyd on 02-03-2024 Urea nitrogen [Mass/Vol] 14 mg/dL Normal 7-25 [facility] Comment on above: Order Comment: Reaso n for Exam Bipolar 2 disorder, major depressive episode;Medication shira Performed By: #### C BC, CMP #### [facility] [address] [place] [address] [place] #### THYROID PROF II #### [facility] , Alanine aminotransferase [En zymatic activity/volume] in Serum or PlasmaOrdered By: PROVIDER TEMP on 12-02-2023 ALT [Catalytic activity/Vol] 14 U/L Normal 7-52 [facility] Comment on above: Performed By: #### C BC, CMP #### [place] [address] [place] #### THYROID PROF II #### [facility] , Albumin [Mass/volume] in Ser um or Plasma by Bromocresol green (BCG) dye binding methoOrdered By: PROVIDER TEMP on 12-02-2023 Albumin BCG dye [Mass/Vol] 4.0 g/dL 3.5-5.7 [facility] Alkaline phosphatase [Enzyma tic activity/volume] in Serum or PlasmaOrdered By: PROVIDER TEMP on 12-02-2023 ALP [Catalytic activity/Vol] 56 U/L Normal 34-104 [facility] Comment on above: Performed By: #### C BC, CMP #### [facility] [address] [place] [address] [place] #### THYROID PROF II #### [facility] , Aspartate aminotransferase [ Enzymatic activity/volume] in Serum or PlasmaOrdered By: PROVIDER TEMP on 12-02-2023 AST [Catalytic activity/Vol] 19 U/L Normal 13-39 [facility] Comment on above: Performed By: #### C BC, CMP #### [facility] [address] [place] [address] [place] #### THYROID PROF II #### [facility] , Automated basophil %Ordered By: PROVIDER TEMP on 12-02-2023 Basophils/100 WBC (Bld) 0.5 % Normal . [facility] Comment on above: Performed By: #### C BC, CMP #### [address] #### THYROID PROF II #### [facility] , Automated basophil countOrde red By: PROVIDER TEMP on 12-02-2023 Basophils (Bld) [#/Vol] 0.1 10*3/uL Normal 0.0-0.2 [facility] Comment on above: Result Comment: PERF ORMED BY: [place] [address] PATHOLOGIST [employer] CHAYO GILL M.D. Performed By: #### C BC, CMP #### [address] #### THYROID PROF II #### [facility] , Automated blood monocyte cou ntOrdered By: PROVIDER TEMP on 12-02-2023 Monocytes (Bld) [#/Vol] 0.6 10*3/uL Normal 0.0-0.8 [facility] Comment on above: Performed By: #### C BC, CMP #### [place] [address] [place] #### THYROID PROF II #### [facility] , Automated eosinophil %Ordere d By: PROVIDER TEMP on 12-02-2023 Eosinophils/100 WBC (Bld) 4.1 % Normal . [facility] Comment on above: Performed By: #### C BC, CMP #### [place] [address] [place] #### THYROID PROF II #### [facility] , Automated eosinophil countOr dered By: PROVIDER TEMP on 12-02-2023 Eosinophils (Bld) [#/Vol] 0.4 10*3/uL Normal 0.0-0.45 [facility] Comment on above: Performed By: #### C BC, CMP #### [facility] [address] [place] [address] [place] #### THYROID PROF II #### [facility] , Automated monocyte %Ordered By: PROVIDER TEMP on 12-02-2023 Monocytes/100 WBC (Bld) 6.6 % Normal . [facility] Comment on above: Performed By: #### C BC, CMP #### [facility] [address] [place] [address] [place] #### THYROID PROF II #### [facility] , Automated neutrophil %Ordere d By: PROVIDER TEMP on 12-02-2023 Neutrophils/100 WBC (Bld) 55.9 % Normal . [facility] Comment on above: Performed By: #### C BC, CMP #### [facility] [address] [place] [address] [place] #### THYROID PROF II #### [facility] , Basic Metabolic Panelon Creatinine Clr Calc Pharmacy 118.03 Normal [facility] Comment on above: Performed By: #### C BC, CMP #### [facility] [address] [place] [address] [place] #### THYROID PROF II #### [facility] , GFR/1.73 sq M.predicted MDRD (S/P/Bld) [Vol rate/Area] mL/min/{1.73_m2} Normal [facility] Comment on above: Performed By: #### C BC, CMP #### [facility] [address] [place] [address] [place] #### THYROID PROF II #### [facility] , Bilirubin Test strip Ql (U)O rdered By: PROVIDER TEMP on 12-02-2023 Bilirubin Ql (U) Negative Negative [facility] Bilirubin.direct [Mass/volum e] in Serum or PlasmaOrdered By: PROVIDER TEMP on 12-02-2023 Bilirubin.direct [Mass/Vol] 0.00 mg/dL Low 0.03-0.18 [facility] Comment on above: If the DBIL is less than 0.1, IBIL is not able to becalculated. Bilirubin.total [Mass/volume ] in Serum or PlasmaOrdered By: PROVIDER TEMP on 12-02-2023 Bilirubin [Mass/Vol] 0.4 mg/dL Normal 0.3-1.0 [facility] Comment on above: Performed By: #### C BC, CMP #### [facility] [address] [place] [address] [place] #### THYROID PROF II #### [facility] , CT abdomen pelvis w conon CT abdomen pelvis w con [facility] [place] [address] [place] [address] CT Scan Report Signed Patient: Elizabeth Hernandez MR#: [id number] : 2000 Acct:[id number] Age/Sex: 23 / F ADM Date: 12/02/23 Loc: ER Room: Type: [facility] ER Attending Dr: Copies to: REHAN Allan Ordering Provider: REHAN Allan Date of Service: 12/02/23 CT/CT abdomen pelvis w con: RLQ pain, r/o appy CT ABDOMEN AND PELVIS WITH CONTRAST COMPARISON: None CLINICAL DATA: Right lower quadrant pain with nausea and vomiting. Spiral images were obtained through the abdomen and pelvis following 90 mL of Isovue-300. This CT exam was performed using one or more following dose reduction techniques: Automated exposure control, adjustment of the mA and/or kV according to patient size, or use of iterative reconstruction technique. Limited cuts through the lung bases show no contributory findings. No calcified gallstones are identified. The liver, spleen, pancreas, adrenal glands and kidneys show no acute findings. There are tiny lymph nodes. No ascites is seen. There is no dilated small bowel. There is stool at the ascending colon and air at the transverse colon. The left colon is not as well distended. There is subtle levoscoliotic curvature. Images through the pelvis show normal caliber small bowel loops. The distal colon is underdistended. There is no diverticular disease. There is moderate stool within a low-lying cecum. No appendiceal inflammation is identified. The uterus is levoverted. The cervix does not enhance as avidly as the myometrium, undetermined significance. There is a right adnexal cyst measuring approximately 2.5 cm in size. There is a trace amount of free fluid at posterior cul-de-sac. This may be physiologic. The urinary bladder is not well-distended however no obvious abnormalities are seen. There are small benign-appearing inguinal lymph nodes. CT/CT abdomen pelvis w con IMPRESSION: NO BOWEL OR URINARY TRACT OBSTRUCTION. NO SUSPECTED APPENDICITIS. SMALL RIGHT OVARIAN CYST. POORLY ENHANCING CERVIX, UNDETERMINED SIGNIFICANCE. Impression dictated by: Lorena Noel M.D.12/02/2023 5:50 PM Dictation Location: [place] [id number] Transcribed By: [facility] 12/02/231749 Dictated By: Lorena Noel MD 12/02/231741 Signed By: 12/02/231749 Normal [facility] Calcium [Mass/volume] in Ser um or PlasmaOrdered By: PROVIDER TEMP on 12-02-2023 Calcium [Mass/Vol] 8.8 mg/dL Normal 8.6-10.3 [facility] Comment on above: Performed By: #### C BC, CMP #### [facility] [address] [place] [address] [place] #### THYROID PROF II #### [facility] , Carbon dioxide, total [Moles /volume] in Serum or PlasmaOrdered By: PROVIDER TEMP on 12-02-2023 CO2 [Moles/Vol] 24.3 mmol/L Normal 21.0-31.0 [facility] Comment on above: Performed By: #### C BC, CMP #### [facility] [address] [place] [address] [place] #### THYROID PROF II #### [facility] , Chloride [Moles/volume] in S gerry or PlasmaOrdered By: PROVIDER TEMP on 12-02-2023 Chloride [Moles/Vol] 109 mmol/L High 98-107 [facility] Comment on above: Performed By: #### C BC, CMP #### [place] [address] [place] #### THYROID PROF II #### [facility] , Color of Urine by AutoOrdere d By: PROVIDER TEMP on 12-02-2023 Color (U) Yellow Normal Yellow [facility] Comment on above: Order Comment: Reaso n for Exam Bipolar 2 disorder, major depressive episode;Medication shira Performed By: #### C BC, CMP #### [place] [address] [place] #### THYROID PROF II #### [facility] , Complete Blood Count Auto Di ffon 12-02-2023 Mean Corpuscular HGB Conc 33.4 g/dL Normal 32.0-35.0 [facility] Comment on above: Performed By: #### C BC, CMP #### [place] [address] [place] #### THYROID PROF II #### [facility] , Monocytes/100 WBC (Bld) 18.06 % Normal 0.00-20.00 [facility] Comment on above: Performed By: #### C BC, CMP #### [place] [address] [place] #### THYROID PROF II #### [facility] , NRBC% 0.1 /100{WBC} Normal 0-0.5 [facility] Comment on above: Performed By: #### C BC, CMP #### [facility] [address] [place] [address] [place] #### THYROID PROF II #### [facility] , Creatinine [Mass/volume] in Serum or PlasmaOrdered By: PROVIDER TEMP on 12-02-2023 Creatinine [Mass/Vol] 0.69 mg/dL Normal 0.60-1.20 [facility] Comment on above: Performed By: #### C BC, CMP #### [facility] [address] [place] [address] [place] #### THYROID PROF II #### [facility] , Erythrocyte distribution wid th [Ratio] by Automated countOrdered By: PROVIDER TEMP on 12-02-2023 Erythrocyte distribution width (RBC) [Ratio] 14.0 % Normal 11.9-15.3 [facility] Comment on above: Performed By: #### C BC, CMP #### [facility] [address] [place] [address] [place] #### THYROID PROF II #### [facility] , Erythrocytes [#/volume] in B lood by Automated countOrdered By: PROVIDER TEMP on 12-02-2023 RBC (Bld) [#/Vol] 5.12 10*6/uL High 3.60-5.00 [facility] Comment on above: Performed By: #### C BC, CMP #### [facility] [address] [place] [address] [place] #### THYROID PROF II #### [facility] , Glucose [Mass/volume] in Ser um or PlasmaOrdered By: PROVIDER TEMP on 12-02-2023 Glucose [Mass/Vol] 81 mg/dL Normal 70-100 [facility] Comment on above: ADA recommended refe rence rangeRandom Glucose Reference Range is dependent on time and content of last meal. Glucose of more than 200 mg/dL in a nonstressed, ambulatory subject supports the diagnosis of Diabetes Mellitus. Result Comment: [place] om Glucose Reference Range is dependent on time and content of last meal. Glucose of more than 200 mg/dL in a nonstressed, ambulatory subject supports the diagnosis of Diabetes Mellitus. ADA recommended reference range Performed By: #### C BC, CMP #### [facility] [address] [place] [address] [place] #### THYROID PROF II #### [facility] , Glucose [Mass/volume] in Uri ne by Test stripOrdered By: PROVIDER TEMP on 12-02-2023 Glucose Test strip (U) [Mass/Vol] Normal mg/dL Normal [facility] HCG ( test) IA.rapi d Ql (U)Ordered By: PROVIDER TEMP on 12-02-2023 HCG ( test) Ql (U) Negative [facility] HCG,Urineon 12-02-2023 Beta HCG ( test) Ql (U) Negative Normal [facility] Comment on above: Order Comment: Reaso n for Exam Bipolar 2 disorder, major depressive episode;Medication shira Result Comment: PERF ORMED BY: [place] [address] PATHOLOGIST [employer] CHAYO GILL M.D. Performed By: #### C BC, CMP #### [address] #### THYROID PROF II #### [facility] , Hematocrit [Volume Fraction] of Blood by Automated countOrdered By: PROVIDER TEMP on 12-02-2023 Hematocrit (Bld) [Volume fraction] 42.0 % Normal 34.0-46.4 [facility] Comment on above: Performed By: #### C BC, CMP #### [place] [address] [place] #### THYROID PROF II #### [facility] , Hemoglobin Test strip Ql (U) Ordered By: PROVIDER TEMP on 12-02-2023 Hemoglobin Ql (U) Negative Negative [facility] Hemoglobin [Mass/volume] in BloodOrdered By: PROVIDER TEMP on 12-02-2023 Hemoglobin (Bld) [Mass/Vol] 14.0 g/dL Normal 11.8-15.4 [facility] Comment on above: Performed By: #### C BC, CMP #### [facility] [address] [place] [address] [place] #### THYROID PROF II #### [facility] , Hepatic Panelon 12-02-2023 Albumin [Mass/Vol] 4.0 g/dL Normal 3.5-5.7 [facility] Comment on above: Performed By: #### C BC, CMP #### [place] [address] [place] #### THYROID PROF II #### [facility] , Bilirubin,Indirect 0.4 mg/dL Normal [facility] Comment on above: Performed By: #### C BC, CMP #### [place] [address] [place] #### THYROID PROF II #### [facility] , Bilirubin.indirect [Mass/Vol] 0.00 mg/dL Low 0.03-0.18 [facility] Comment on above: Result Comment: If t he DBIL is less than 0.1, IBIL is not able to be calculated. Performed By: #### C BC, CMP #### [place] [address] [place] #### THYROID PROF II #### [facility] , Ketones [Presence] in Urine by Test stripOrdered By: PROVIDER TEMP on 12-02-2023 Ketones Ql (U) Negative Normal Negative [facility] Comment on above: Order Comment: Reaso n for Exam Bipolar 2 disorder, major depressive episode;Medication shira Performed By: #### C BC, CMP #### [place] [address] [place] #### THYROID PROF II #### [facility] , Leukocyte esterase [Presence ] in Urine by Test stripOrdered By: PROVIDER TEMP on 12-02-2023 Leukocyte esterase Test strip Ql (U) Negative Normal Negative [facility] Comment on above: Order Comment: Reaso n for Exam Bipolar 2 disorder, major depressive episode;Medication shira Performed By: #### C BC, CMP #### [facility] [address] [place] [address] [place] #### THYROID PROF II #### [facility] , Leukocytes [#/volume] correc moshe for nucleated erythrocytes in Blood by Automated counOrdered By: PROVIDER TEMP on 12-02-2023 WBC corrected for nucl RBC Auto (Bld) [#/Vol] 9.5 10*3/uL 3.8-11.6 [facility] Leukocytes [#/volume] in Blo od by Automated countOrdered By: PROVIDER TEMP on 12-02-2023 WBC (Bld) [#/Vol] 9.5 10*3/uL Normal 3.8-11.6 [facility] Comment on above: Performed By: #### C BC, CMP #### [facility] [address] [place] [address] [place] #### THYROID PROF II #### [facility] , Lipase [Enzymatic activity/v olume] in Serum or PlasmaOrdered By: PROVIDER TEMP on 12-02-2023 Lipase [Catalytic activity/Vol] 46.0 U/L Normal 11.0-82.0 [facility] Comment on above: Result Comment: PERF ORMED BY: [place] [address] PATHOLOGIST [employer] CHAYO GILL M.D. Performed By: #### C BC, CMP #### [place] [address] [place] #### THYROID PROF II #### [facility] , Lymphocytes [#/volume] in Bl ood by Automated countOrdered By: PROVIDER TEMP on 12-02-2023 Lymphocytes (Bld) [#/Vol] 3.1 10*3/uL Normal 1.00-4.8 [facility] Comment on above: Performed By: #### C BC, CMP #### [facility] [address] [place] [address] [place] #### THYROID PROF II #### [facility] , Lymphocytes/100 leukocytes i n Blood by Automated countOrdered By: PROVIDER TEMP on 12-02-2023 Lymphocytes/100 WBC (Bld) 32.9 % Normal . [facility] Comment on above: Performed By: #### C BC, CMP #### [facility] [address] [place] [address] [place] #### THYROID PROF II #### [facility] , MCH [Entitic mass] by Automa moshe countOrdered By: PROVIDER TEMP on 12-02-2023 MCH (RBC) [Entitic mass] 27.4 pg Normal 24.7-34.3 [facility] Comment on above: Performed By: #### C BC, CMP #### [address] #### THYROID PROF II #### [facility] , MCHC Auto (RBC) [Mass/Vol]Or dered By: PROVIDER TEMP on 12-02-2023 MCHC (RBC) [Mass/Vol] 33.4 g/dL 32.0-35.0 [facility] MCV [Entitic volume] by Auto mated countOrdered By: PROVIDER TEMP on 12-02-2023 MCV (RBC) [Entitic vol] 82.0 fL Normal 80-100 [facility] Comment on above: Performed By: #### C BC, CMP #### [place] [address] [place] #### THYROID PROF II #### [facility] , Monocyte distribution width [Entitic volume] in Blood by AutomatedOrdered By: PROVIDER TEMP on 12-02-2023 Monocyte distribution width Auto (Bld) [Entitic vol] 18.06 % 0.00-20.00 [facility] Neutrophils [#/volume] in Bl ood by Automated countOrdered By: PROVIDER TEMP on 12-02-2023 Neutrophils (Bld) [#/Vol] 5.3 10*3/uL Normal 1.8-7.7 [facility] Comment on above: Performed By: #### C BC, CMP #### [place] [address] [place] #### THYROID PROF II #### [facility] , Nitrite Test strip Ql (U)Ord ered By: PROVIDER TEMP on 12-02-2023 Nitrite Ql (U) Negative Negative [facility] No Panel InformationOrdered By: PROVIDER TEMP on 12-02-2023 Estimated GFR (CKD-EPI) > 60.0 mL/Min [facility] Creatinine Clearance (Chem 118.03 [facility] Nucleated erythrocytes [Pres ence] in Blood by Automated countOrdered By: PROVIDER TEMP on 12-02-2023 Nucleated RBC Auto Ql (Bld) 0.1 /100{WBC} 0-0.5 [facility] Platelet mean volume [Entiti c volume] in Blood by Automated countOrdered By: PROVIDER TEMP on 12-02-2023 Platelet mean volume (Bld) [Entitic vol] 8.0 fL Normal 6.3-10.7 [facility] Comment on above: Performed By: #### C BC, CMP #### [facility] [address] [place] [address] [place] #### THYROID PROF II #### [facility] , Platelets [#/volume] in Bloo d by Automated countOrdered By: PROVIDER TEMP on 12-02-2023 Platelets (Bld) [#/Vol] 231 10*3/uL Normal 150-450 [facility] Comment on above: Performed By: #### C BC, CMP #### [facility] [address] [place] [address] [place] #### THYROID PROF II #### [facility] , Potassium [Moles/volume] in Serum or PlasmaOrdered By: PROVIDER TEMP on 12-02-2023 Potassium [Moles/Vol] 3.9 mmol/L Normal 3.5-5.1 [facility] Comment on above: Performed By: #### C BC, CMP #### [facility] [address] [place] [address] [place] #### THYROID PROF II #### [facility] , Protein Test strip (U) [Mass /Vol]Ordered By: PROVIDER TEMP on 12-02-2023 Protein (U) [Mass/Vol] Negative Negative [facility] Protein [Mass/volume] in Ser um or PlasmaOrdered By: PROVIDER TEMP on 12-02-2023 Protein [Mass/Vol] 7.2 g/dL Normal 6.4-8.9 [facility] Comment on above: Performed By: #### C BC, CMP #### [facility] [address] [place] [address] [place] #### THYROID PROF II #### [facility] , Serum globulin measurement b y calculation (mass/volume)Ordered By: PROVIDER TEMP on 12-02-2023 Globulin (S) [Mass/Vol] 3.2 g/dL Normal [facility] Comment on above: Performed By: #### C BC, CMP #### [facility] [address] [place] [address] [place] #### THYROID PROF II #### [facility] , Serum or plasma albumin/glob ulin mass ratioOrdered By: PROVIDER TEMP on 12-02-2023 Albumin/Globulin [Mass ratio] 1.3 {ratio} Normal [facility] Comment on above: Performed By: #### C BC, CMP #### [facility] [address] [place] [address] [place] #### THYROID PROF II #### [facility] , Serum or plasma anion gap de terminationOrdered By: PROVIDER TEMP on 12-02-2023 Anion gap [Moles/Vol] 9.6 mmol/L Normal 6.0-15.0 [facility] Comment on above: Performed By: #### C RITU, CMP #### [facility] [address] [place] [address] [place] #### THYROID PROF II #### [facility] , Serum or plasma non-glucuron idated bilirubin measurement (mass/volume)Ordered By: PROVIDER TEMP on 12-02-2023 Bilirubin.indirect [Mass/Vol] 0.4 mg/dL [facility] Sodium [Moles/volume] in Ser um or PlasmaOrdered By: PROVIDER TEMP on 12-02-2023 Sodium [Moles/Vol] 139 mmol/L Normal 136-145 [facility] Comment on above: Performed By: #### C BC, CMP #### [facility] [address] [place] [address] [place] #### THYROID PROF II #### [facility] , Specific gravity Test strip (U) [Rel density]Ordered By: PROVIDER TEMP on 12-02-2023 Specific gravity (U) [Rel density] 1.027 1.001-1.03 0 [facility] Urea nitrogen [Mass/volume] in Serum or PlasmaOrdered By: PROVIDER TEMP on 12-02-2023 Urea nitrogen [Mass/Vol] 9 mg/dL Normal 7-25 [facility] Comment on above: Performed By: #### C BC, CMP #### [place] [address] [place] #### THYROID PROF II #### [facility] , Urinalysison 12-02-2023 Bilirubin,Urine Negative Normal Negative [facility] Comment on above: Order Comment: Reaso n for Exam Bipolar 2 disorder, major depressive episode;Medication shira Performed By: #### C BC, CMP #### [place] [address] [place] #### THYROID PROF II #### [facility] , Glucose Ql (U) Normal Normal Normal [facility] Comment on above: Order Comment: Reaso n for Exam Bipolar 2 disorder, major depressive episode;Medication shira Performed By: #### C BC, CMP #### [place] [address] [place] #### THYROID PROF II #### [facility] , Nitrite,Urine Negative Normal Negative [facility] Comment on above: Order Comment: Reaso n for Exam Bipolar 2 disorder, major depressive episode;Medication shira Performed By: #### C BC, CMP #### [place] [address] [place] #### THYROID PROF II #### [facility] , Occult Blood,Urine Negative Normal Negative [facility] Comment on above: Order Comment: Reaso n for Exam Bipolar 2 disorder, major depressive episode;Medication shira Performed By: #### C BC, CMP #### [facility] [address] [place] [address] [place] #### THYROID PROF II #### [facility] , Protein,Urine Negative Normal Negative [facility] Comment on above: Order Comment: Reaso n for Exam Bipolar 2 disorder, major depressive episode;Medication shira Performed By: #### C BC, CMP #### [facility] [address] [place] [address] [place] #### THYROID PROF II #### [facility] , Specificy [place],Urine 1.027 Normal 1.00 1-1.03 0 [facility] Comment on above: Order Comment: Reaso n for Exam Bipolar 2 disorder, major depressive episode;Medication shira Performed By: #### C BC, CMP #### [place] [address] [place] #### THYROID PROF II #### [facility] , Urobilinogen,Urine Normal Normal Normal [facility] Comment on above: Order Comment: Reaso n for Exam Bipolar 2 disorder, major depressive episode;Medication shria Performed By: #### C BC, CMP #### [facility] [address] [place] [address] [place] #### THYROID PROF II #### [facility] , Urine appearanceOrdered By: PROVIDER TEMP on 12-02-2023 Appearance (U) Clear Normal Clear [facility] Comment on above: Order Comment: Reaso n for Exam Bipolar 2 disorder, major depressive episode;Medication shira Performed By: #### C BC, CMP #### [place] [address] [place] #### THYROID PROF II #### [facility] , Urobilinogen Test strip (U) [Mass/Vol]Ordered By: PROVIDER TEMP on 12-02-2023 Urobilinogen (U) [Mass/Vol] Normal mg/dL Normal [facility] pH of Urine by Test stripOrd ered By: PROVIDER TEMP on 12-02-2023 pH (U) 6.0 [pH] Normal 5.0-9.0 [facility] Comment on above: Order Comment: Reaso n for Exam Bipolar 2 disorder, major depressive episode;Medication shira Performed By: #### C BC, CMP #### [facility] [address] #### THYROID PROF II #### [facility] , Aerobic throat cultureOrdere d By: Kenneth Ballard on 10-04-2023 Bacteria identified Aer cx Nom (Throat) 2 Days [facility] Basophils Auto (Bld) [#/Vol] Ordered By: Ashish Oropeza on 10-04-2023 Basophils (Bld) [#/Vol] 0.1 10*3/uL 0.0-0.2 [facility] Basophils/100 WBC Auto (Bld) Ordered By: Ashish Oropeza on 10-04-2023 Basophils/100 WBC (Bld) 0.7 % . [facility] Calcium [Mass/volume] in Ser um or PlasmaOrdered By: Ashish Oropeza on 10-04-2023 Calcium [Mass/Vol] 9.4 mg/dL 8.6-10.3 [facility] Carbon dioxide, total [Moles /volume] in Serum or PlasmaOrdered By: Ashish Oropeza on 10-04-2023 CO2 [Moles/Vol] 23.4 mmol/L 21.0-31.0 [facility] Chloride [Moles/volume] in S gerry or PlasmaOrdered By: Ashish Oropeza on 10-04-2023 Chloride [Moles/Vol] 107 mmol/L 98-107 [facility] Creatinine [Mass/volume] in Serum or PlasmaOrdered By: Ashish Oropeza on 10-04-2023 Creatinine [Mass/Vol] 0.74 mg/dL 0.60-1.20 [facility] Eosinophils Auto (Bld) [#/Vo l]Ordered By: Ashish Oropeza on 10-04-2023 Eosinophils (Bld) [#/Vol] 0.2 10*3/uL 0.0-0.45 [facility] Eosinophils/100 WBC Auto (Bl d)Ordered By: Ashish Oropeza on 10-04-2023 Eosinophils/100 WBC (Bld) 2.1 % . [facility] Erythrocyte distribution wid th Auto (RBC) [Ratio]Ordered By: Ashish Oropeza on 10-04-2023 Erythrocyte distribution width (RBC) [Ratio] 14.0 % 11.9-15.3 [facility] Glucose [Mass/volume] in Ser um or PlasmaOrdered By: Ashish Oropeza on 10-04-2023 Glucose [Mass/Vol] 91 mg/dL 70-100 [facility] Comment on above: ADA recommended refe rence rangeRandom Glucose Reference Range is dependent on time and content of last meal. Glucose of more than 200 mg/dL in a nonstressed, ambulatory subject supports the diagnosis of Diabetes Mellitus. Hematocrit Auto (Bld) [Volum e fraction]Ordered By: Ashish Oropeza on 10-04-2023 Hematocrit (Bld) [Volume fraction] 41.8 % 34.0-46.4 [facility] Hemoglobin [Mass/volume] in BloodOrdered By: Ashish Oropeza on 10-04-2023 Hemoglobin (Bld) [Mass/Vol] 13.9 g/dL 11.8-15.4 [facility] Leukocytes [#/volume] correc moshe for nucleated erythrocytes in Blood by Automated counOrdered By: Ashish Oropeza on 10-04-2023 WBC corrected for nucl RBC Auto (Bld) [#/Vol] 11.3 10*3/uL 3.8-11.6 [facility] Lymphocytes Auto (Bld) [#/Vo l]Ordered By: Ashish Oropeza on 10-04-2023 Lymphocytes (Bld) [#/Vol] 3.6 10*3/uL 1.00-4.8 [facility] Lymphocytes/100 WBC Auto (Bl d)Ordered By: Ashish Oropeza on 10-04-2023 Lymphocytes/100 WBC (Bld) 31.7 % . [facility] MCH Auto (RBC) [Entitic mass ]Ordered By: Ashish Oropeza on 10-04-2023 MCH (RBC) [Entitic mass] 27.4 pg 24.7-34.3 [facility] MCHC Auto (RBC) [Mass/Vol]Or dered By: Ashish Oropeza on 10-04-2023 MCHC (RBC) [Mass/Vol] 33.3 g/dL 32.0-35.0 [facility] MCV Auto (RBC) [Entitic vol] Ordered By: Ashish Oropeza on 10-04-2023 MCV (RBC) [Entitic vol] 82.2 fL 80-100 [facility] Monocyte distribution width [Entitic volume] in Blood by AutomatedOrdered By: Ashish Oropeza on 10-04-2023 Monocyte distribution width Auto (Bld) [Entitic vol] 17.27 % 0.00-20.00 [facility] Monocytes Auto (Bld) [#/Vol] Ordered By: Ashish Oropeza on 10-04-2023 Monocytes (Bld) [#/Vol] 0.7 10*3/uL 0.0-0.8 [facility] Monocytes/100 WBC Auto (Bld) Ordered By: Ashish Oropeza on 10-04-2023 Monocytes/100 WBC (Bld) 6.3 % . [facility] Neutrophils Auto (Bld) [#/Vo l]Ordered By: Ashish Oropeza on 10-04-2023 Neutrophils (Bld) [#/Vol] 6.7 10*3/uL 1.8-7.7 [facility] Neutrophils/100 WBC Auto (Bl d)Ordered By: Ashish Oropeza on 10-04-2023 Neutrophils/100 WBC (Bld) 59.2 % . [facility] No Panel InformationOrdered By: Ashish Oropeza on 10-04-2023 Estimated GFR (CKD-EPI) > 60.0 mL/Min [facility] Creatinine Clearance (Chem 107.83 [facility] No Panel InformationOrdered By: Kenneth Ballard on 10-04-2023 Quick Strep (POC) [facility] Nucleated erythrocytes [Pres ence] in Blood by Automated countOrdered By: Ashish Oropeza on 10-04-2023 Nucleated RBC Auto Ql (Bld) 0.1 /100{WBC} 0-0.5 [facility] Platelet mean volume Auto (B ld) [Entitic vol]Ordered By: Ashish Oropeza on 10-04-2023 Platelet mean volume (Bld) [Entitic vol] 8.0 fL 6.3-10.7 [facility] Platelets Auto (Bld) [#/Vol] Ordered By: Ashish Oropeza on 10-04-2023 Platelets (Bld) [#/Vol] 242 10*3/uL 150-450 [facility] Potassium [Moles/volume] in Serum or PlasmaOrdered By: Ashish Oropeza on 10-04-2023 Potassium [Moles/Vol] 3.8 mmol/L 3.5-5.1 [facility] RBC Auto (Bld) [#/Vol]Ordere d By: Ashish Oropeza on 10-04-2023 RBC (Bld) [#/Vol] 5.08 10*6/uL High 3.60-5.00 [facility] Serum heterophile antibody d etection by latex agglutinationOrdered By: Ashish Oropeza on 10-04-2023 Heterophile Ab LA Ql (S) Negative Negative [facility] Serum or plasma anion gap de terminationOrdered By: Ashish Oropeza on 10-04-2023 Anion gap [Moles/Vol] 9.4 mmol/L 6.0-15.0 [facility] Sodium [Moles/volume] in Ser um or PlasmaOrdered By: Ashish Oropeza on 10-04-2023 Sodium [Moles/Vol] 136 mmol/L 136-145 [facility] Urea nitrogen [Mass/volume] in Serum or PlasmaOrdered By: Ashish Oropeza on 10-04-2023 Urea nitrogen [Mass/Vol] 9 mg/dL 7-25 [facility] WBC Auto (Bld) [#/Vol]Ordere d By: Ashish Oropeza on 10-04-2023 WBC (Bld) [#/Vol] 11.3 10*3/uL 3.8-11.6 [facility] Alanine aminotransferase [En zymatic activity/volume] in Serum or PlasmaOrdered By: Wilder Burk on 08-19-2023 ALT [Catalytic activity/Vol] 10 U/L 7-52 [facility] Albumin [Mass/volume] in Ser um or Plasma by Bromocresol green (BCG) dye binding methoOrdered By: Wilder Burk on 08-19-2023 Albumin BCG dye [Mass/Vol] 4.2 g/dL 3.5-5.7 [facility] Alkaline phosphatase [Enzyma tic activity/volume] in Serum or PlasmaOrdered By: Wilder Burk on 08-19-2023 ALP [Catalytic activity/Vol] 69 U/L 34-104 [facility] Aspartate aminotransferase [ Enzymatic activity/volume] in Serum or PlasmaOrdered By: Wilder Burk on 08-19-2023 AST [Catalytic activity/Vol] 15 U/L 13-39 [facility] Automated erythrocytes count in urine sediment (number/area)Ordered By: Wilder Burk on 08-19-2023 RBC Auto (Urine sed) [#/Area] 5-9 [HPF] 0-4 [facility] Automated leukocytes count i n urine sediment (number/area)Ordered By: Wilder Burk on 08-19-2023 WBC Auto (Urine sed) [#/Area] 0-1 [HPF] 0-4 [facility] Basophils Auto (Bld) [#/Vol] Ordered By: Wilder Burk on 08-19-2023 Basophils (Bld) [#/Vol] 0.1 10*3/uL 0.0-0.2 [facility] Basophils/100 WBC Auto (Bld) Ordered By: Wilder Burk on 08-19-2023 Basophils/100 WBC (Bld) 0.7 % . [facility] Bilirubin Test strip Ql (U)O rdered By: Wilder Burk on 08-19-2023 Bilirubin Ql (U) Negative Negative [facility] Bilirubin.total [Mass/volume ] in Serum or PlasmaOrdered By: Wilder Burk on 08-19-2023 Bilirubin [Mass/Vol] 0.3 mg/dL 0.3-1.0 [facility] Calcium [Mass/volume] in Ser um or PlasmaOrdered By: Wilder Burk on 08-19-2023 Calcium [Mass/Vol] 9.2 mg/dL 8.6-10.3 [facility] Carbon dioxide, total [Moles /volume] in Serum or PlasmaOrdered By: Wilder Burk on 08-19-2023 CO2 [Moles/Vol] 24.3 mmol/L 21.0-31.0 [facility] Chloride [Moles/volume] in S gerry or PlasmaOrdered By: Wilder Burk on 08-19-2023 Chloride [Moles/Vol] 107 mmol/L 98-107 [facility] Choriogonadotropin.beta subu nit [Units/volume] in Serum or PlasmaOrdered By: Wilder Burk on 08-19-2023 HCG.beta subunit Qn Negative [facility] Color Auto (U)Ordered By: Lorraine ttemilyw Wm on 08-19-2023 Color (U) Yellow Yellow [facility] Creatinine [Mass/volume] in Serum or PlasmaOrdered By: Wilder Burk on 08-19-2023 Creatinine [Mass/Vol] 0.62 mg/dL 0.60-1.20 [facility] Eosinophils Auto (Bld) [#/Vo l]Ordered By: Wilder Burk on 08-19-2023 Eosinophils (Bld) [#/Vol] 0.2 10*3/uL 0.0-0.45 [facility] Eosinophils/100 WBC Auto (Bl d)Ordered By: Wilder Burk on 08-19-2023 Eosinophils/100 WBC (Bld) 2.3 % . [facility] Erythrocyte distribution wid th Auto (RBC) [Ratio]Ordered By: Wilder Burk on 08-19-2023 Erythrocyte distribution width (RBC) [Ratio] 13.9 % 11.9-15.3 [facility] Fecal occult blood detection by immunochemistryOrdered By: Wilder Burk on 08-19-2023 Hemoglobin.gastrointest inal Ql (Stl) [facility] Globulin Calc (S) [Mass/Vol] Ordered By: Wilder Burk on 08-19-2023 Globulin (S) [Mass/Vol] 3.3 g/dL [facility] Glucose [Mass/volume] in Ser um or PlasmaOrdered By: Wilder Burk on 08-19-2023 Glucose [Mass/Vol] 88 mg/dL 70-100 [facility] Comment on above: ADA recommended refe rence rangeRandom Glucose Reference Range is dependent on time and content of last meal. Glucose of more than 200 mg/dL in a nonstressed, ambulatory subject supports the diagnosis of Diabetes Mellitus. HCG ( test) IA.rapi d Ql (U)Ordered By: Wilder Burk on 08-19-2023 HCG ( test) Ql (U) Negative [facility] Hematocrit Auto (Bld) [Volum e fraction]Ordered By: Wilder Burk on 08-19-2023 Hematocrit (Bld) [Volume fraction] 42.7 % 34.0-46.4 [facility] Hemoglobin [Mass/volume] in BloodOrdered By: Wilder Burk on 08-19-2023 Hemoglobin (Bld) [Mass/Vol] 14.2 g/dL 11.8-15.4 [facility] Ketones Auto test strip (U) [Mass/Vol]Ordered By: Wilder Burk on 08-19-2023 Ketones (U) [Mass/Vol] Negative Negative [facility] - UrinalysisOrder ed By: Wilder Burk on 08-19-2023 Hyaline casts LM Ql (Urine sed) 0-8 [LPF] 0-8 [facility] Leukocytes [#/volume] correc moshe for nucleated erythrocytes in Blood by Automated counOrdered By: Wilder Burk on 08-19-2023 WBC corrected for nucl RBC Auto (Bld) [#/Vol] 10.1 10*3/uL 3.8-11.6 [facility] Lipase [Enzymatic activity/v olume] in Serum or PlasmaOrdered By: Wilder Burk on 08-19-2023 Lipase [Catalytic activity/Vol] 50.0 U/L 11.0-82.0 [facility] Lymphocytes Auto (Bld) [#/Vo l]Ordered By: Wilder Burk 08-19-2023 Lymphocytes (Bld) [#/Vol] 2.8 10*3/uL 1.00-4.8 [facility] Lymphocytes/100 WBC Auto (Bl d)Ordered By: Wilder Burk on 08-19-2023 Lymphocytes/100 WBC (Bld) 27.4 % . [facility] MCH Auto (RBC) [Entitic mass ]Ordered By: Wilder Burk on 08-19-2023 MCH (RBC) [Entitic mass] 27.8 pg 24.7-34.3 [facility] MCHC Auto (RBC) [Mass/Vol]Or dered By: Wilder Burk on 08-19-2023 MCHC (RBC) [Mass/Vol] 33.3 g/dL 32.0-35.0 [facility] MCV Auto (RBC) [Entitic vol] Ordered By: Wilder Burk on 08-19-2023 MCV (RBC) [Entitic vol] 83.4 fL 80-100 [facility] Monocyte distribution width [Entitic volume] in Blood by AutomatedOrdered By: Wilder Burk on 08-19-2023 Monocyte distribution width Auto (Bld) [Entitic vol] 16.02 % 0.00-20.00 [facility] Monocytes Auto (Bld) [#/Vol] Ordered By: Wilder Burk on 08-19-2023 Monocytes (Bld) [#/Vol] 0.7 10*3/uL 0.0-0.8 [facility] Monocytes/100 WBC Auto (Bld) Ordered By: Wilder Burk on 08-19-2023 Monocytes/100 WBC (Bld) 6.5 % . [facility] Neutrophils Auto (Bld) [#/Vo l]Ordered By: Wilder Burk on 08-19-2023 Neutrophils (Bld) [#/Vol] 6.3 10*3/uL 1.8-7.7 [facility] Neutrophils/100 WBC Auto (Bl d)Ordered By: Wilder Burk on 08-19-2023 Neutrophils/100 WBC (Bld) 63.1 % . [facility] Nitrite Test strip Ql (U)Ord ered By: Wilder Burk on 08-19-2023 Nitrite Ql (U) Negative Negative [facility] No Panel InformationOrdered By: Wilder Burk on 08-19-2023 Estimated GFR (CKD-EPI) > 60.0 mL/Min [facility] Creatinine Clearance (Chem 128.75 [facility] Nucleated erythrocytes [Pres ence] in Blood by Automated countOrdered By: Wilder Burk on 08-19-2023 Nucleated RBC Auto Ql (Bld) 0.1 /100{WBC} 0-0.5 [facility] Platelet mean volume Auto (B ld) [Entitic vol]Ordered By: Wilder Burk on 08-19-2023 Platelet mean volume (Bld) [Entitic vol] 7.8 fL 6.3-10.7 [facility] Platelets Auto (Bld) [#/Vol] Ordered By: Wilder Burk on 08-19-2023 Platelets (Bld) [#/Vol] 260 10*3/uL 150-450 [facility] Potassium [Moles/volume] in Serum or PlasmaOrdered By: Wilder Burk on 08-19-2023 Potassium [Moles/Vol] 4.1 mmol/L 3.5-5.1 [facility] Protein Auto test strip (U) [Mass/Vol]Ordered By: Wilder Burk on 08-19-2023 Protein (U) [Mass/Vol] Negative Negative [facility] Protein [Mass/volume] in Ser um or PlasmaOrdered By: Wilder Burk on 08-19-2023 Protein [Mass/Vol] 7.5 g/dL 6.4-8.9 [facility] RBC Auto (Bld) [#/Vol]Ordere d By: Wilder Burk on 08-19-2023 RBC (Bld) [#/Vol] 5.13 10*6/uL 3.60-5.00 [facility] Serum or plasma albumin/glob ulin mass ratioOrdered By: Wilder Burk on 08-19-2023 Albumin/Globulin [Mass ratio] 1.3 {ratio} [facility] Serum or plasma anion gap de terminationOrdered By: Wilder Burk on 08-19-2023 Anion gap [Moles/Vol] 9.8 mmol/L 6.0-15.0 [facility] Sodium [Moles/volume] in Ser um or PlasmaOrdered By: Wilder Burk on 08-19-2023 Sodium [Moles/Vol] 137 mmol/L 136-145 [facility] Specific gravity Auto test s trip (U) [Rel density]Ordered By: Wilder Burk on 08-19-2023 Specific gravity (U) [Rel density] 1.021 1.001-1.03 0 [facility] Squamous epithelial cells de tection in urine sediment by light microscopyOrdered By: Wilder Burk on 08-19-2023 Epithelial cells.squamous LM Ql (Urine sed) 3-4 [HPF] 0-2 [facility] Urea nitrogen [Mass/volume] in Serum or PlasmaOrdered By: Wiledr Burk on 08-19-2023 Urea nitrogen [Mass/Vol] 11 mg/dL 7-25 [facility] Urine bacteria detection by automated methodOrdered By: Wilder Burk on 08-19-2023 Bacteria Auto Ql (U) None seen None Seen [facility] Urine clarity by refractomet ry automatedOrdered By: Wilder Burk on 08-19-2023 Clarity Refractometry automated (U) Cloudy Clear [facility] Urine glucose measurement by automated test strip (mass/volume)Ordered By: Wilder Burk on 08-19-2023 Glucose Auto test strip (U) [Mass/Vol] Normal mg/dL Normal [facility] Urine hemoglobin detection b y automated test stripOrdered By: Wilder Burk on 08-19-2023 Hemoglobin Auto test strip Ql (U) Negative Negative [facility] Urine leukocyte esterase det ection by automated test stripOrdered By: Wilder Burk on 08-19-2023 Leukocyte esterase Auto test strip Ql (U) Negative Negative [facility] Urobilinogen Auto test strip (U) [Mass/Vol]Ordered By: Wilder Burk on 08-19-2023 Urobilinogen (U) [Mass/Vol] Normal mg/dL Normal [facility] WBC Auto (Bld) [#/Vol]Ordere d By: Wilder Burk on 08-19-2023 WBC (Bld) [#/Vol] 10.1 10*3/uL 3.8-11.6 [facility] pH Auto test strip (U)Ordere d By: Wilder Burk on 08-19-2023 pH (U) 5.0 [pH] 5.0-9.0 [facility] Alanine aminotransferase [En zymatic activity/volume] in Serum or PlasmaOrdered By: Sp Cazares on 07-11-2023 ALT [Catalytic activity/Vol] 8 U/L 7-52 [facility] Albumin [Mass/volume] in Ser um or Plasma by Bromocresol green (BCG) dye binding methoOrdered By: pS Cazares on 07-11-2023 Albumin BCG dye [Mass/Vol] 4.2 g/dL 3.5-5.7 [facility] Alkaline phosphatase [Enzyma tic activity/volume] in Serum or PlasmaOrdered By: Sp Cazares on 07-11-2023 ALP [Catalytic activity/Vol] 63 U/L 34-104 [facility] Aspartate aminotransferase [ Enzymatic activity/volume] in Serum or PlasmaOrdered By: Sp Cazares on 07-11-2023 AST [Catalytic activity/Vol] 13 U/L 13-39 [facility] Automated erythrocytes count in urine sediment (number/area)Ordered By: Sp Cazares on 07-11-2023 RBC Auto (Urine sed) [#/Area] 0-1 [HPF] 0-4 [facility] Automated leukocytes count i n urine sediment (number/area)Ordered By: Sp Cazares on 07-11-2023 WBC Auto (Urine sed) [#/Area] None seen [HPF] 0-4 [facility] Basophils Auto (Bld) [#/Vol] Ordered By: Sp Cazares on 07-11-2023 Basophils (Bld) [#/Vol] 0.0 10*3/uL 0.0-0.2 [facility] Basophils/100 WBC Auto (Bld) Ordered By: Sp Cazares on 07-11-2023 Basophils/100 WBC (Bld) 0.6 % . F [facility] Bilirubin Test strip Ql (U)O rdered By: Sp Cazares on 07-11-2023 Bilirubin Ql (U) Negative Negative [facility] Bilirubin.total [Mass/volume ] in Serum or PlasmaOrdered By: Sp Cazares on 07-11-2023 Bilirubin [Mass/Vol] 0.2 mg/dL 0.3-1.0 [facility] Calcium [Mass/volume] in Ser um or PlasmaOrdered By: Sp Cazares on 07-11-2023 Calcium [Mass/Vol] 9.0 mg/dL 8.6-10.3 [facility] Carbon dioxide, total [Moles /volume] in Serum or PlasmaOrdered By: Sp Cazares on 07-11-2023 CO2 [Moles/Vol] 25.2 mmol/L 21.0-31.0 [facility] Chloride [Moles/volume] in S gerry or PlasmaOrdered By: Sp Cazares on 07-11-2023 Chloride [Moles/Vol] 108 mmol/L 98-107 [facility] Color Auto (U)Ordered By: [place] Cazares on 07-11-2023 Color (U) Yellow Yellow [facility] Creatine kinase [Enzymatic a ctivity/volume] in Serum or PlasmaOrdered By: Sp Cazares on 07-11-2023 CK [Catalytic activity/Vol] 69 U/L 30-223 [facility] Creatinine [Mass/volume] in Serum or PlasmaOrdered By: Sp Cazares on 07-11-2023 Creatinine [Mass/Vol] 0.69 mg/dL 0.60-1.20 [facility] Eosinophils Auto (Bld) [#/Vo l]Ordered By: Sp Cazares on 07-11-2023 Eosinophils (Bld) [#/Vol] 0.1 10*3/uL 0.0-0.45 [facility] Eosinophils/100 WBC Auto (Bl d)Ordered By: Sp Cazares on 07-11-2023 Eosinophils/100 WBC (Bld) 1.8 % . [facility] Erythrocyte distribution wid th Auto (RBC) [Ratio]Ordered By: Sp Cazares on 07-11-2023 Erythrocyte distribution width (RBC) [Ratio] 13.6 % 11.9-15.3 [facility] Globulin Calc (S) [Mass/Vol] Ordered By: Sp Cazares on 07-11-2023 Globulin (S) [Mass/Vol] 3.1 g/dL [facility] Glucose Glucometer (BldC) [M ass/Vol]Ordered By: Sp Cazares on 07-11-2023 Glucose [Mass/Vol] 95 mg/dL [facility] Comment on above: Random Glucose Refer ence Range is dependent on time and content of last meal. Glucose of more than 200 mg/dL in a nonstressed, ambulatory subject supports the diagnosis of Diabetes Mellitus. Glucose [Mass/volume] in Ser um or PlasmaOrdered By: Sp Cazares on 07-11-2023 Glucose [Mass/Vol] 99 mg/dL 70-100 [facility] Comment on above: ADA recommended refe rence rangeRandom Glucose Reference Range is dependent on time and content of last meal. Glucose of more than 200 mg/dL in a nonstressed, ambulatory subject supports the diagnosis of Diabetes Mellitus. Hematocrit Auto (Bld) [Volum e fraction]Ordered By: Sp Cazares on 07-11-2023 Hematocrit (Bld) [Volume fraction] 40.3 % 34.0-46.4 [facility] Hemoglobin [Mass/volume] in BloodOrdered By: Sp Cazares on 07-11-2023 Hemoglobin (Bld) [Mass/Vol] 13.4 g/dL 11.8-15.4 [facility] INR in Platelet poor plasma by Coagulation assayOrdered By: Sp Cazares on 07-11-2023 INR Coag (PPP) [Relative time] 1.0 {INR} [facility] Comment on above: INR Therapeutic Rang e A) Pre- and Peroperative OAT started two weeks before surgery. NOT HIP SURGERY: 1.5 - 2.5 HIP SURGERY: 2 - 3B) Primary and secondary prevention of venous THROMBOSIS: 2 - 3C) Active venous thrombosis, pulmonary embolismand prevention of recurrent venous thrombosis: 2 - 3D) Prevention of arterial thromboembolismincluding patients with mechanical heart valves: 3 - 4.5 Ketones Auto test strip (U) [Mass/Vol]Ordered By: Sp Czaares on 07-11-2023 Ketones (U) [Mass/Vol] Negative Negative [facility] - UrinalysisOrder ed By: Sp Cazares on 07-11-2023 Hyaline casts LM Ql (Urine sed) 0-8 [LPF] 0-8 [facility] Leukocytes [#/volume] correc moshe for nucleated erythrocytes in Blood by Automated counOrdered By: Sp Cazares on 07-11-2023 WBC corrected for nucl RBC Auto (Bld) [#/Vol] 8.2 10*3/uL 3.8-11.6 [facility] Lymphocytes Auto (Bld) [#/Vo l]Ordered By: Sp Cazares on 07-11-2023 Lymphocytes (Bld) [#/Vol] 2.1 10*3/uL 1.00-4.8 [facility] Lymphocytes/100 WBC Auto (Bl d)Ordered By: Sp Cazares on 07-11-2023 Lymphocytes/100 WBC (Bld) 25.0 % . [facility] MCH Auto (RBC) [Entitic mass ]Ordered By: Sp Cazares on 07-11-2023 MCH (RBC) [Entitic mass] 27.6 pg 24.7-34.3 [facility] [facility] MCHC Auto (RBC) [Mass/Vol]Or dered By: Sp Cazares on 07-11-2023 MCHC (RBC) [Mass/Vol] 33.2 g/dL 32.0-35.0 Fir [facility] MCV Auto (RBC) [Entitic vol] Ordered By: Sp Cazares on 07-11-2023 MCV (RBC) [Entitic vol] 83.2 fL 80-100 F [facility] Monocyte distribution width [Entitic volume] in Blood by AutomatedOrdered By: Sp Cazares on 07-11-2023 Monocyte distribution width Auto (Bld) [Entitic vol] 18.57 % 0.00-20.00 [facility] Monocytes Auto (Bld) [#/Vol] Ordered By: Sp Cazares on 07-11-2023 Monocytes (Bld) [#/Vol] 0.5 10*3/uL 0.0-0.8 [facility] Monocytes/100 WBC Auto (Bld) Ordered By: Sp Cazares on 07-11-2023 Monocytes/100 WBC (Bld) 6.5 % . [facility] Neutrophils Auto (Bld) [#/Vo l]Ordered By: Sp Cazares on 07-11-2023 Neutrophils (Bld) [#/Vol] 5.5 10*3/uL 1.8-7.7 [facility] Neutrophils/100 WBC Auto (Bl d)Ordered By: Sp Cazares on 07-11-2023 Neutrophils/100 WBC (Bld) 66.1 % . [facility] Nitrite Test strip Ql (U)Ord ered By: Sp Cazares on 07-11-2023 Nitrite Ql (U) Negative Negative [facility] No Panel InformationOrdered By: Sp Cazares on 07-11-2023 Estimated GFR (CKD-EPI) > 60.0 mL/Min [facility] Creatinine Clearance (Chem 115.85 [facility] Bedside Glucose Comment Glu2: cleaned meter [facility] Nucleated erythrocytes [Pres ence] in Blood by Automated countOrdered By: Sp Cazares on 07-11-2023 Nucleated RBC Auto Ql (Bld) 0.1 /100{WBC} 0-0.5 [facility] Platelet mean volume Auto (B ld) [Entitic vol]Ordered By: Sp Cazares on 07-11-2023 Platelet mean volume (Bld) [Entitic vol] 8.3 fL 6.3-10.7 [facility] Platelets Auto (Bld) [#/Vol] Ordered By: Sp Cazares on 07-11-2023 Platelets (Bld) [#/Vol] 246 10*3/uL 150-450 [facility] Potassium [Moles/volume] in Serum or PlasmaOrdered By: Sp Cazares on 07-11-2023 Potassium [Moles/Vol] 4.1 mmol/L 3.5-5.1 [facility] Protein Auto test strip (U) [Mass/Vol]Ordered By: Sp Cazares on 07-11-2023 Protein (U) [Mass/Vol] Negative Negative [facility] Protein [Mass/volume] in Ser um or PlasmaOrdered By: Sp Cazares on 07-11-2023 Protein [Mass/Vol] 7.3 g/dL 6.4-8.9 [facility] Prothrombin time (PT)Ordered By: Sp Cazares on 07-11-2023 PT Coag (PPP) [Time] 11.7 s 9.0-12.9 [facility] Comment on above: A hematocrit value g reater than 55% may lead to inaccurate results in coagulation testing. Patients having hematocrit values >55% require a special collection tube for coagulation studies. Please contact the laboratory at [phone] for redraw instructions. RBC Auto (Bld) [#/Vol]Ordere d By: Sp Cazares on 07-11-2023 RBC (Bld) [#/Vol] 4.84 10*6/uL 3.60-5.00 [facility] Serum or plasma albumin/glob ulin mass ratioOrdered By: Sp Cazares on 07-11-2023 Albumin/Globulin [Mass ratio] 1.4 {ratio} [facility] Serum or plasma anion gap de terminationOrdered By: Sp Cazares on 07-11-2023 Anion gap [Moles/Vol] 9.9 mmol/L 6.0-15.0 [facility] Sodium [Moles/volume] in Ser um or PlasmaOrdered By: Sp Cazares on 07-11-2023 Sodium [Moles/Vol] 139 mmol/L 136-145 [facility] Specific gravity Auto test s trip (U) [Rel density]Ordered By: Sp Cazares on 07-11-2023 Specific gravity (U) [Rel density] 1.008 1.001-1.03 0 [facility] Squamous epithelial cells de tection in urine sediment by light microscopyOrdered By: Sp Cazares on 07-11-2023 Epithelial cells.squamous LM Ql (Urine sed) 0-1 [HPF] 0-2 [facility] Troponin I.cardiac [Mass/vol ume] in Serum or Plasma by Detection limit <= 0.01 ng/Ordered By: Sp Cazares on 07-11-2023 Troponin I.cardiac DL <= 0.01 ng/mL [Mass/Vol] < 2.3 pg/mL 0.0-15.0 [facility] Urea nitrogen [Mass/volume] in Serum or PlasmaOrdered By: Sp Cazares on 07-11-2023 Urea nitrogen [Mass/Vol] 11 mg/dL 7-25 [facility] Urine bacteria detection by automated methodOrdered By: Sp Cazares on 07-11-2023 Bacteria Auto Ql (U) None seen None Seen [facility] Urine clarity by refractomet ry automatedOrdered By: Sp Cazares on 07-11-2023 Clarity Refractometry automated (U) Cloudy Clear [facility] Urine glucose measurement by automated test strip (mass/volume)Ordered By: Sp Cazares on 07-11-2023 Glucose Auto test strip (U) [Mass/Vol] Normal mg/dL Normal [facility] Urine hemoglobin detection b y automated test stripOrdered By: Sp Cazares on 07-11-2023 Hemoglobin Auto test strip Ql (U) Trace Negative [facility] Urine leukocyte esterase det ection by automated test stripOrdered By: Sp Cazares on 07-11-2023 Leukocyte esterase Auto test strip Ql (U) Negative Negative [facility] Urobilinogen Auto test strip (U) [Mass/Vol]Ordered By: Sp Cazares on 07-11-2023 Urobilinogen (U) [Mass/Vol] Normal mg/dL Normal [facility] WBC Auto (Bld) [#/Vol]Ordere d By: Sp Cazares on 07-11-2023 WBC (Bld) [#/Vol] 8.2 10*3/uL 3.8-11.6 [facility] pH Auto test strip (U)Ordere d By: Sp Cazares on 07-11-2023 pH (U) 5.5 [pH] 5.0-9.0 [facility] C reactive protein [Mass/vol ume] in Serum or Plasma by High sensitivity methodOrdered By: Jael Sanders on 05-22-2023 CRP High sensitivity method [Mass/Vol] 9.3 mg/L 0.0-0.9 [facility] Comment on above: Cardiovascular Risk Classification (AHA/CDC)hsCRP < 1.0 mg/l low relative risk for CVDhsCRP 1.0-3.0 mg/l average relative risk for CVDhsCRP > 3.0 mg/l high relative risk for CVDhsCRP > 7.5 mg/l active inflammation*Two results two weeks apart and averaged provide a morestable estimate of hsCRP level.*hsCRP levels > 7.5 mg/l may suggest infection that canlimit the use of this marker for estimation of CVD risk. Erythrocyte sedimentation ra te by Photometric methodOrdered By: Jael Sanders on 05-22-2023 ESR Photometric method (Bld) [Velocity] 11 mm/hr 0-19 [facility] Serum nuclear antibody titer Ordered By: Jael Sanders on 05-22-2023 Nuclear Ab (S) [Titer] Negative . [facility] Comment on above: Negative <1:80 Borde rline 1:80 Positive >1:80ICAP nomenclature: [id number] more information about Hep-2 cell patterns useANApatterns.org, the official website for theInternational Consensus on Antinuclear Antibody (ZEFERINO)Patterns (ICAP).Performed at: [email or web address] [id number] Director: Uri Unger PhD, Phone: [phone] Alanine aminotransferase [En zymatic activity/volume] in Serum or PlasmaOrdered By: Airam Grant on 05-14-2023 ALT [Catalytic activity/Vol] 11 U/L 7-52 [facility] Albumin [Mass/volume] in Ser um or Plasma by Bromocresol green (BCG) dye binding methoOrdered By: Airam Grant on 05-14-2023 Albumin BCG dye [Mass/Vol] 4.1 g/dL 3.5-5.7 [facility] Alkaline phosphatase [Enzyma tic activity/volume] in Serum or PlasmaOrdered By: Airam Grant on 05-14-2023 ALP [Catalytic activity/Vol] 63 U/L 34-104 [facility] Aspartate aminotransferase [ Enzymatic activity/volume] in Serum or PlasmaOrdered By: Airam Grant on 05-14-2023 AST [Catalytic activity/Vol] 15 U/L 13-39 [facility] Basophils Auto (Bld) [#/Vol] Ordered By: Airam Grant on 05-14-2023 Basophils (Bld) [#/Vol] 0.0 10*3/uL 0.0-0.2 [facility] Basophils/100 WBC Auto (Bld) Ordered By: Airam Grant on 05-14-2023 Basophils/100 WBC (Bld) 0.5 % . [facility] Bilirubin.total [Mass/volume ] in Serum or PlasmaOrdered By: Airam Grant on 05-14-2023 Bilirubin [Mass/Vol] 0.4 mg/dL 0.3-1.0 [facility] Calcium [Mass/volume] in Ser um or PlasmaOrdered By: Airam Grant on 05-14-2023 Calcium [Mass/Vol] 9.0 mg/dL 8.6-10.3 [facility] Carbon dioxide, total [Moles /volume] in Serum or PlasmaOrdered By: Airam Grant on 05-14-2023 CO2 [Moles/Vol] 22.9 mmol/L 21.0-31.0 [facility] Chloride [Moles/volume] in S gerry or PlasmaOrdered By: Airam Grant on 05-14-2023 Chloride [Moles/Vol] 106 mmol/L 98-107 [facility] Choriogonadotropin.beta subu nit [Units/volume] in Serum or PlasmaOrdered By: Airam Grant on 05-14-2023 HCG.beta subunit Qn Negative [facility] Creatinine [Mass/volume] in Serum or PlasmaOrdered By: Airam Grant on 05-14-2023 Creatinine [Mass/Vol] 0.61 mg/dL 0.60-1.20 [facility] Eosinophils Auto (Bld) [#/Vo l]Ordered By: Airam Grant on 05-14-2023 Eosinophils (Bld) [#/Vol] 0.1 10*3/uL 0.0-0.45 [facility] Eosinophils/100 WBC Auto (Bl d)Ordered By: Airam Grant on 05-14-2023 Eosinophils/100 WBC (Bld) 1.4 % . [facility] Erythrocyte distribution wid th Auto (RBC) [Ratio]Ordered By: Airam Grant on 05-14-2023 Erythrocyte distribution width (RBC) [Ratio] 14.4 % 11.9-15.3 [facility] Fibrin D-dimer [Presence] in Platelet poor plasma by Latex agglutinationOrdered By: Airam Grant on 05-14-2023 Fibrin D-dimer LA Ql (PPP) < 200 ng/mL 0-243 [facility] Comment on above: The reference range for D-dimer is <243 ng/mL D-dimer units.D-dimer results must be used in conjunction with a clinicalpretest probability (PTP) assessment model for deep veinthrombosis (DVT) and pulmonary embolism (PE). Results <230ng/mL d-dimer units can be used as a negative predictor inpatients with low or moderate probability for DVT/PE.Results above the exclusion threshold of 230 ng/ml D-dimerunits for DVT/PE may indicate the need for furtherdiagnostic testing.D-Dimer can be increased in hospitalized patients due toco-morbid conditions.A hematocrit value greater than 55% may lead to inaccurate results in coagulation testing. Patients having hematocrit values >55% require a special collection tube for coagulation studies. Please contact the laboratory at [phone] for redraw instructions. Globulin Calc (S) [Mass/Vol] Ordered By: Airam Grant on 05-14-2023 Globulin (S) [Mass/Vol] 3.1 g/dL [facility] Glucose [Mass/volume] in Ser um or PlasmaOrdered By: Airam Grant on 05-14-2023 Glucose [Mass/Vol] 84 mg/dL 70-100 [facility] Comment on above: ADA recommended refe rence rangeRandom Glucose Reference Range is dependent on time and content of last meal. Glucose of more than 200 mg/dL in a nonstressed, ambulatory subject supports the diagnosis of Diabetes Mellitus. Hematocrit Auto (Bld) [Volum e fraction]Ordered By: Airam Grant on 05-14-2023 Hematocrit (Bld) [Volume fraction] 39.4 % 34.0-46.4 [facility] Hemoglobin [Mass/volume] in BloodOrdered By: Airam Grant on 05-14-2023 Hemoglobin (Bld) [Mass/Vol] 13.6 g/dL 11.8-15.4 [facility] Leukocytes [#/volume] correc moshe for nucleated erythrocytes in Blood by Automated counOrdered By: Airam Grant on 05-14-2023 WBC corrected for nucl RBC Auto (Bld) [#/Vol] 9.7 10*3/uL 3.8-11.6 [facility] Lymphocytes Auto (Bld) [#/Vo l]Ordered By: Airam Grant on 05-14-2023 Lymphocytes (Bld) [#/Vol] 3.1 10*3/uL 1.00-4.8 [facility] Lymphocytes/100 WBC Auto (Bl d)Ordered By: Airam Grant on 05-14-2023 Lymphocytes/100 WBC (Bld) 31.9 % . [facility] MCH Auto (RBC) [Entitic mass ]Ordered By: Airam Grant on 05-14-2023 MCH (RBC) [Entitic mass] 28.1 pg 24.7-34.3 [facility] MCHC Auto (RBC) [Mass/Vol]Or dered By: Airam Grant on 05-14-2023 MCHC (RBC) [Mass/Vol] 34.5 g/dL 32.0-35.0 Fir [facility] MCV Auto (RBC) [Entitic vol] Ordered By: Airam Grant on 05-14-2023 MCV (RBC) [Entitic vol] 81.4 fL 80-100 F [facility] Monocyte distribution width [Entitic volume] in Blood by AutomatedOrdered By: Airam Grant on 05-14-2023 Monocyte distribution width Auto (Bld) [Entitic vol] 16.39 % 0.00-20.00 [facility] Monocytes Auto (Bld) [#/Vol] Ordered By: Airam Grant on 05-14-2023 Monocytes (Bld) [#/Vol] 0.7 10*3/uL 0.0-0.8 [facility] Monocytes/100 WBC Auto (Bld) Ordered By: Airam Grant on 05-14-2023 Monocytes/100 WBC (Bld) 6.7 % . [facility] Natriuretic peptide B [Mass/ Vol]Ordered By: Airam Grant on 05-14-2023 Natriuretic peptide B (Bld) [Mass/Vol] 11.0 pg/mL 5-100 [facility] Neutrophils Auto (Bld) [#/Vo l]Ordered By: Airam Grant on 05-14-2023 Neutrophils (Bld) [#/Vol] 5.8 10*3/uL 1.8-7.7 [facility] Neutrophils/100 WBC Auto (Bl d)Ordered By: Airam Grant on 05-14-2023 Neutrophils/100 WBC (Bld) 59.5 % . [facility] No Panel InformationOrdered By: Airam Grant on 05-14-2023 Estimated GFR (CKD-EPI) > 60.0 mL/Min [facility] Creatinine Clearance (Chem 132.89 [facility] Nucleated erythrocytes [Pres ence] in Blood by Automated countOrdered By: Airam Grant on 05-14-2023 Nucleated RBC Auto Ql (Bld) 0.0 /100{WBC} 0-0.5 [facility] Platelet mean volume Auto (B ld) [Entitic vol]Ordered By: Airam Grant on 05-14-2023 Platelet mean volume (Bld) [Entitic vol] 8.1 fL 6.3-10.7 [facility] Platelets Auto (Bld) [#/Vol] Ordered By: Airam Grant on 05-14-2023 Platelets (Bld) [#/Vol] 239 10*3/uL 150-450 [facility] Potassium [Moles/volume] in Serum or PlasmaOrdered By: Airam Grant on 05-14-2023 Potassium [Moles/Vol] 3.5 mmol/L 3.5-5.1 [facility] Protein [Mass/volume] in Ser um or PlasmaOrdered By: Airam Grant on 05-14-2023 Protein [Mass/Vol] 7.2 g/dL 6.4-8.9 [facility] RBC Auto (Bld) [#/Vol]Ordere d By: Airam Grant on 05-14-2023 RBC (Bld) [#/Vol] 4.84 10*6/uL 3.60-5.00 [facility] Serum or plasma albumin/glob ulin mass ratioOrdered By: Airam Grant on 05-14-2023 Albumin/Globulin [Mass ratio] 1.3 {ratio} [facility] Serum or plasma anion gap de terminationOrdered By: Airam Grant on 05-14-2023 Anion gap [Moles/Vol] 12.6 mmol/L 6.0-15.0 [facility] Sodium [Moles/volume] in Ser um or PlasmaOrdered By: Airam Grant on 05-14-2023 Sodium [Moles/Vol] 138 mmol/L 136-145 [facility] Troponin I.cardiac [Mass/vol ume] in Serum or Plasma by Detection limit <= 0.01 ng/Ordered By: Airam Grant on 05-14-2023 Troponin I.cardiac DL <= 0.01 ng/mL [Mass/Vol] < 2.3 pg/mL 0.0-15.0 [facility] Urea nitrogen [Mass/volume] in Serum or PlasmaOrdered By: Airam Grant on 05-14-2023 Urea nitrogen [Mass/Vol] 8 mg/dL 7-25 [facility] WBC Auto (Bld) [#/Vol]Ordere d By: Airam Grant on 05-14-2023 WBC (Bld) [#/Vol] 9.7 10*3/uL 3.8-11.6 [facility] Activated partial thrombopla stin time (aPTT) in platelet poor plasma by coagulation aOrdered By: PROVIDER TEMP on 05-01-2023 aPTT Coag (PPP) [Time] 30.9 s 25.1-36.5 [facility] Comment on above: A hematocrit value g reater than 55% may lead to inaccurate results in coagulation testing. Patients having hematocrit values >55% require a special collection tube for coagulation studies. Please contact the laboratory at [phone] for redraw instructions. Alanine aminotransferase [En zymatic activity/volume] in Serum or PlasmaOrdered By: PROVIDER TEMP on 05-01-2023 ALT [Catalytic activity/Vol] 11 U/L 7-52 [facility] Albumin [Mass/volume] in Ser um or Plasma by Bromocresol green (BCG) dye binding methoOrdered By: PROVIDER TEMP on 05-01-2023 Albumin BCG dye [Mass/Vol] 4.4 g/dL 3.5-5.7 [facility] Alkaline phosphatase [Enzyma tic activity/volume] in Serum or PlasmaOrdered By: PROVIDER TEMP on 05-01-2023 ALP [Catalytic activity/Vol] 83 U/L 34-104 [facility] Amphetamine Screen Ql (U)Ord ered By: PROVIDER TEMP on 05-01-2023 Amphetamines Ql (U) Positive Negative [facility] Aspartate aminotransferase [ Enzymatic activity/volume] in Serum or PlasmaOrdered By: PROVIDER TEMP on 05-01-2023 AST [Catalytic activity/Vol] 15 U/L 13-39 [facility] Barbiturates [Presence] in U rine by Screen methodOrdered By: PROVIDER TEMP on 05-01-2023 Barbiturates Screen Ql (U) Negative Negative [facility] Basophils Auto (Bld) [#/Vol] Ordered By: PROVIDER TEMP on 05-01-2023 Basophils (Bld) [#/Vol] 0.0 10*3/uL 0.0-0.2 [facility] Basophils/100 WBC Auto (Bld) Ordered By: PROVIDER TEMP on 05-01-2023 Basophils/100 WBC (Bld) 0.3 % . [facility] Benzodiazepines Screen Ql (U )Ordered By: PROVIDER TEMP on 05-01-2023 Benzodiazepines Ql (U) Negative Negative [facility] Benzoylecgonine [Presence] i n Urine by Screen methodOrdered By: PROVIDER TEMP on 05-01-2023 Benzoylecgonine Screen Ql (U) Negative Negative [facility] Bilirubin Test strip Ql (U)O rdered By: PROVIDER TEMP on 05-01-2023 Bilirubin Ql (U) Negative Negative [facility] Bilirubin.total [Mass/volume ] in Serum or PlasmaOrdered By: PROVIDER TEMP on 05-01-2023 Bilirubin [Mass/Vol] 0.3 mg/dL 0.3-1.0 [facility] COVID CepheidOrdered By: PRO THURMANR TEMP on 05-01-2023 SARS-CoV-2 (COVID-19) Ab IA Ql Positive Negative [facility] Comment on above: This is a duplicate Cepheid Xpert Xpress CoV-2/Flu/RSV Plus RNA by RT-PCR result to be used for statistical tracking purpose only. COVID CepheidOrdered By: Camille Don on 05-01-2023 SARS-CoV-2 (COVID-19) RNA KASHIF+probe Ql (Unsp spec) [facility] SARS-CoV-2 (COVID-19) RNA KASHIF+probe Ql (Unsp spec) [facility] Calcium [Mass/volume] in Ser um or PlasmaOrdered By: PROVIDER TEMP on 05-01-2023 Calcium [Mass/Vol] 9.3 mg/dL 8.6-10.3 [facility] Cannabinoids [Presence] in U rine by Screen methodOrdered By: PROVIDER TEMP on 05-01-2023 Cannabinoids Screen Ql (U) Negative Negative [facility] Comment on above: These are unconfirme d results and should not be used for legal purposes. Drug Cut-Off Concentration: AMPH 1000 ng/mL SUJATHA 200 ng/mL PARAM 200 ng/mL COCM 300 ng/mL OP 300 ng/mL PCP 25 ng/mL THC 20 ng/mL Carbon dioxide, total [Moles /volume] in Serum or PlasmaOrdered By: PROVIDER TEMP on 05-01-2023 CO2 [Moles/Vol] 26.9 mmol/L 21.0-31.0 [facility] Chloride [Moles/volume] in S gerry or PlasmaOrdered By: PROVIDER TEMP on 05-01-2023 Chloride [Moles/Vol] 104 mmol/L 98-107 [facility] Color Auto (U)Ordered By: GAUTAM PHILLIPER TEMP on 05-01-2023 Color (U) Yellow Yellow [facility] Creatine kinase [Enzymatic a ctivity/volume] in Serum or PlasmaOrdered By: PROVIDER TEMP on 05-01-2023 CK [Catalytic activity/Vol] 73 U/L 30-223 [facility] Creatinine [Mass/volume] in Serum or PlasmaOrdered By: PROVIDER TEMP on 05-01-2023 Creatinine [Mass/Vol] 0.71 mg/dL 0.60-1.20 [facility] Eosinophils Auto (Bld) [#/Vo l]Ordered By: PROVIDER TEMP on 05-01-2023 Eosinophils (Bld) [#/Vol] 0.2 10*3/uL 0.0-0.45 [facility] Eosinophils/100 WBC Auto (Bl d)Ordered By: PROVIDER TEMP on 05-01-2023 Eosinophils/100 WBC (Bld) 2.9 % . [facility] Erythrocyte distribution wid th Auto (RBC) [Ratio]Ordered By: PROVIDER TEMP on 05-01-2023 Erythrocyte distribution width (RBC) [Ratio] 14.1 % 11.9-15.3 [facility] Fibrin D-dimer [Presence] in Platelet poor plasma by Latex agglutinationOrdered By: Juan F Silvestre on 05-01-2023 Fibrin D-dimer LA Ql (PPP) < 200 ng/mL 0-243 [facility] Comment on above: The reference range for D-dimer is <243 ng/mL D-dimer units.D-dimer results must be used in conjunction with a clinicalpretest probability (PTP) assessment model for deep veinthrombosis (DVT) and pulmonary embolism (PE). Results <230ng/mL d-dimer units can be used as a negative predictor inpatients with low or moderate probability for DVT/PE.Results above the exclusion threshold of 230 ng/ml D-dimerunits for DVT/PE may indicate the need for furtherdiagnostic testing.D-Dimer can be increased in hospitalized patients due toco-morbid conditions.A hematocrit value greater than 55% may lead to inaccurate results in coagulation testing. Patients having hematocrit values >55% require a special collection tube for coagulation studies. Please contact the laboratory at [phone] for redraw instructions. Globulin Calc (S) [Mass/Vol] Ordered By: PROVIDER TEMP on 05-01-2023 Globulin (S) [Mass/Vol] 3.5 g/dL [facility] Glucose [Mass/volume] in Ser um or PlasmaOrdered By: PROVIDER TEMP on 05-01-2023 Glucose [Mass/Vol] 92 mg/dL 70-100 [facility] Comment on above: ADA recommended refe rence rangeRandom Glucose Reference Range is dependent on time and content of last meal. Glucose of more than 200 mg/dL in a nonstressed, ambulatory subject supports the diagnosis of Diabetes Mellitus. HCG ( test) IA.rapi d Ql (U)Ordered By: PROVIDER TEMP on 05-01-2023 HCG ( test) Ql (U) Negative [facility] Hematocrit Auto (Bld) [Volum e fraction]Ordered By: PROVIDER TEMP on 05-01-2023 Hematocrit (Bld) [Volume fraction] 43.8 % 34.0-46.4 [facility] Hemoglobin [Mass/volume] in BloodOrdered By: PROVIDER TEMP on 05-01-2023 Hemoglobin (Bld) [Mass/Vol] 14.9 g/dL 11.8-15.4 [facility] INR in Platelet poor plasma by Coagulation assayOrdered By: PROVIDER TEMP on 05-01-2023 INR Coag (PPP) [Relative time] 1.1 {INR} [facility] Comment on above: INR Therapeutic Rang e A) Pre- and Peroperative OAT started two weeks before surgery. NOT HIP SURGERY: 1.5 - 2.5 HIP SURGERY: 2 - 3B) Primary and secondary prevention of venous THROMBOSIS: 2 - 3C) Active venous thrombosis, pulmonary embolismand prevention of recurrent venous thrombosis: 2 - 3D) Prevention of arterial thromboembolismincluding patients with mechanical heart valves: 3 - 4.5 Ketones Auto test strip (U) [Mass/Vol]Ordered By: PROVIDER TEMP on 05-01-2023 Ketones (U) [Mass/Vol] Trace Negative [facility] Leukocytes [#/volume] correc moshe for nucleated erythrocytes in Blood by Automated counOrdered By: PROVIDER TEMP on 05-01-2023 WBC corrected for nucl RBC Auto (Bld) [#/Vol] 8.2 10*3/uL 3.8-11.6 [facility] Lymphocytes Auto (Bld) [#/Vo l]Ordered By: PROVIDER TEMP on 05-01-2023 Lymphocytes (Bld) [#/Vol] 1.3 10*3/uL 1.00-4.8 [facility] Lymphocytes/100 WBC Auto (Bl d)Ordered By: PROVIDER TEMP on 05-01-2023 Lymphocytes/100 WBC (Bld) 16.2 % . [facility] MCH Auto (RBC) [Entitic mass ]Ordered By: PROVIDER TEMP on 05-01-2023 MCH (RBC) [Entitic mass] 28.3 pg 24.7-34.3 [facility] MCHC Auto (RBC) [Mass/Vol]Or dered By: PROVIDER TEMP on 05-01-2023 MCHC (RBC) [Mass/Vol] 33.9 g/dL 32.0-35.0 Fir [facility] MCV Auto (RBC) [Entitic vol] Ordered By: PROVIDER TEMP on 05-01-2023 MCV (RBC) [Entitic vol] 83.4 fL 80-100 F [facility] Magnesium [Mass/volume] in S gerry or PlasmaOrdered By: PROVIDER TEMP on 05-01-2023 Magnesium [Mass/Vol] 2.1 mg/dL 1.9-2.7 [facility] Monocyte distribution width [Entitic volume] in Blood by AutomatedOrdered By: PROVIDER TEMP on 05-01-2023 Monocyte distribution width Auto (Bld) [Entitic vol] 20.44 % 0.00-20.00 [facility] Comment on above: For adults in ED, MD W > 20.0 may be associated with a higher risk of sepsis during the first 12 hrs of hospital admission Monocytes Auto (Bld) [#/Vol] Ordered By: PROVIDER TEMP on 05-01-2023 Monocytes (Bld) [#/Vol] 0.7 10*3/uL 0.0-0.8 [facility] Monocytes/100 WBC Auto (Bld) Ordered By: PROVIDER TEMP on 05-01-2023 Monocytes/100 WBC (Bld) 8.1 % . F [facility] Neutrophils Auto (Bld) [#/Vo l]Ordered By: PROVIDER TEMP on 05-01-2023 Neutrophils (Bld) [#/Vol] 5.9 10*3/uL 1.8-7.7 [facility] Neutrophils/100 WBC Auto (Bl d)Ordered By: PROVIDER TEMP on 05-01-2023 Neutrophils/100 WBC (Bld) 72.5 % . [facility] Nitrite Test strip Ql (U)Ord ered By: PROVIDER TEMP on 05-01-2023 Nitrite Ql (U) Negative Negative [facility] No Panel InformationOrdered By: PROVIDER TEMP on 05-01-2023 Estimated GFR (CKD-EPI) > 60.0 mL/Min [facility] Pharmacy Creatinine Clearance (Chem 113.22 [facility] Nucleated erythrocytes [Pres ence] in Blood by Automated countOrdered By: PROVIDER TEMP on 05-01-2023 Nucleated RBC Auto Ql (Bld) 0.1 /100{WBC} 0-0.5 [facility] Opiates [Presence] in Urine by Screen methodOrdered By: PROVIDER TEMP on 05-01-2023 Opiates Screen Ql (U) Negative Negative Fir [facility] Phencyclidine Screen Ql (U)O rdered By: PROVIDER TEMP on 05-01-2023 Phencyclidine Ql (U) Negative Negative [facility] Platelet mean volume Auto (B ld) [Entitic vol]Ordered By: PROVIDER TEMP on 05-01-2023 Platelet mean volume (Bld) [Entitic vol] 7.9 fL 6.3-10.7 [facility] Platelets Auto (Bld) [#/Vol] Ordered By: PROVIDER TEMP on 05-01-2023 Platelets (Bld) [#/Vol] 241 10*3/uL 150-450 [facility] Potassium [Moles/volume] in Serum or PlasmaOrdered By: PROVIDER TEMP on 05-01-2023 Potassium [Moles/Vol] 3.8 mmol/L 3.5-5.1 [facility] Protein Auto test strip (U) [Mass/Vol]Ordered By: PROVIDER TEMP on 05-01-2023 Protein (U) [Mass/Vol] Negative Negative [facility] Protein [Mass/volume] in Ser um or PlasmaOrdered By: PROVIDER TEMP on 05-01-2023 Protein [Mass/Vol] 7.9 g/dL 6.4-8.9 [facility] Prothrombin time (PT)Ordered By: PROVIDER TEMP on 05-01-2023 PT Coag (PPP) [Time] 12.7 s 9.0-12.9 [facility] Comment on above: A hematocrit value g reater than 55% may lead to inaccurate results in coagulation testing. Patients having hematocrit values >55% require a special collection tube for coagulation studies. Please contact the laboratory at [phone] for redraw instructions. RBC Auto (Bld) [#/Vol]Ordere d By: PROVIDER TEMP on 05-01-2023 RBC (Bld) [#/Vol] 5.25 10*6/uL 3.60-5.00 [facility] Serum or plasma albumin/glob ulin mass ratioOrdered By: PROVIDER TEMP on 05-01-2023 Albumin/Globulin [Mass ratio] 1.3 {ratio} [facility] Serum or plasma anion gap de terminationOrdered By: PROVIDER TEMP on 05-01-2023 Anion gap [Moles/Vol] 9.9 mmol/L 6.0-15.0 [facility] Sodium [Moles/volume] in Ser um or PlasmaOrdered By: PROVIDER TEMP on 05-01-2023 Sodium [Moles/Vol] 137 mmol/L 136-145 [facility] Specific gravity Auto test s trip (U) [Rel density]Ordered By: PROVIDER TEMP on 05-01-2023 Specific gravity (U) [Rel density] 1.036 1.001-1.03 0 [facility] Troponin I.cardiac [Mass/vol ume] in Serum or Plasma by Detection limit <= 0.01 ng/Ordered By: PROVIDER TEMP on 05-01-2023 Troponin I.cardiac DL <= 0.01 ng/mL [Mass/Vol] < 2.3 pg/mL 0.0-15.0 [facility] Urea nitrogen [Mass/volume] in Serum or PlasmaOrdered By: PROVIDER TEMP on 05-01-2023 Urea nitrogen [Mass/Vol] 11 mg/dL 7-25 [facility] Urine clarity by refractomet ry automatedOrdered By: PROVIDER TEMP on 05-01-2023 Clarity Refractometry automated (U) Clear Clear [facility] Urine glucose measurement by automated test strip (mass/volume)Ordered By: PROVIDER TEMP on 05-01-2023 Glucose Auto test strip (U) [Mass/Vol] Normal mg/dL Normal [facility] Urine hemoglobin detection b y automated test stripOrdered By: PROVIDER TEMP on 05-01-2023 Hemoglobin Auto test strip Ql (U) Negative Negative [facility] Urine leukocyte esterase det ection by automated test stripOrdered By: PROVIDER TEMP on 05-01-2023 Leukocyte esterase Auto test strip Ql (U) Negative Negative [facility] Urobilinogen Auto test strip (U) [Mass/Vol]Ordered By: PROVIDER TEMP on 05-01-2023 Urobilinogen (U) [Mass/Vol] Normal mg/dL Normal [facility] WBC Auto (Bld) [#/Vol]Ordere d By: PROVIDER TEMP on 05-01-2023 WBC (Bld) [#/Vol] 8.2 10*3/uL 3.8-11.6 [facility] pH Auto test strip (U)Ordere d By: PROVIDER TEMP on 05-01-2023 pH (U) 5.5 [pH] 5.0-9.0 [facility] XR shoulder LT min 2V*on XR shoulder LT min 2V* [facility] [employer] Other XR shoulder LT min 2V* [facility] [employer] Other XR shoulder LT min 2V* [facility] [employer] Other XR shoulder LT min 2V* [place] [address] [employer] Other XR shoulder LT min 2V* XRay Report N [facility] [employer] Other XR shoulder LT min 2V* Signed No rt [employer] Other XR shoulder LT min 2V* Patient: Elizabeth Hernandez MR#: [id number] [employer] Other XR shoulder LT min 2V* 5715 No rt [employer] Other XR shoulder LT min 2V* : 2000 Acct:[id number] [employer] Other XR shoulder LT min 2V* Age/Sex: 22 / F A DM Date: 04/01/23 [employer] Other XR shoulder LT min 2V* Loc: [facility] Room: T ype: [facility] [employer] Other XR shoulder LT min 2V* Attending Dr: Osito Salas DO [employer] Other XR shoulder LT min 2V* Copies to: Carlos Salas DO [employer] Other XR shoulder LT min 2V* Ordering Provider : Carlos Salas DO [employer] Other XR shoulder LT min 2V* Date of Service: 04/01/23 [employer] Other XR shoulder LT min 2V* XR/XR shoulder LT min 2V*: Acute pain of left shoulder [employer] Other XR shoulder LT min 2V* LEFT SHOULDER - 4 views [employer] Other XR shoulder LT min 2V* CLINICAL HISTORY: Left shoulder pain for the past few months with radiation down the arm after [employer] Other XR shoulder LT min 2V* assisting her grandmother. [employer] Other XR shoulder LT min 2V* COMPARISON: 04/22/2017 [employer] Other XR shoulder LT min 2V* AP, Y, axillary a nd Grashey views were obtained. There is no evidence of fracture or dislocation. [employer] Other XR shoulder LT min 2V* There are no sign ificant soft tissue abnormalities. [employer] Other XR shoulder LT min 2V* 7 XR/XR shoulder LT min 2V* [employer] Other XR shoulder LT min 2V* IMPRESSION: N Xir[employer] Other XR shoulder LT min 2V* NO ACUTE BONY FINDINGS [employer] Other XR shoulder LT min 2V* Impression dictat ed by: Lorena Noel M.D.04/01/2023 11:57 AM [employer] Other XR shoulder LT min 2V* Dictation Locatio n: RADIO-PC-10 [employer] Other XR shoulder LT min 2V* Transcribed By: Nathan OCAMPO 04/01/23 1157 [employer] Other XR shoulder LT min 2V* Dictated By: Krys Noel MD 04/01/23 1155 [employer] Other XR shoulder LT min 2V* Signed By: No rtCRAVE Other XR shoulder LT min 2V* 04/01/23 1157 [employer] Other Alanine aminotransferase [En zymatic activity/volume] in Serum or PlasmaOrdered By: Keith Boyd on 02-04-2023 ALT [Catalytic activity/Vol] 14 U/L 7-52 [facility] Albumin [Mass/volume] in Ser um or Plasma by Bromocresol green (BCG) dye binding methoOrdered By: Keith Boyd on 02-04-2023 Albumin BCG dye [Mass/Vol] 4.0 g/dL 3.5-5.7 [facility] Alkaline phosphatase [Enzyma tic activity/volume] in Serum or PlasmaOrdered By: Keith Boyd on 02-04-2023 ALP [Catalytic activity/Vol] 65 U/L 34-104 [facility] Aspartate aminotransferase [ Enzymatic activity/volume] in Serum or PlasmaOrdered By: Keith Boyd on 02-04-2023 AST [Catalytic activity/Vol] 19 U/L 13-39 [facility] Bilirubin.total [Mass/volume ] in Serum or PlasmaOrdered By: Keith Boyd on 02-04-2023 Bilirubin [Mass/Vol] 0.4 mg/dL 0.3-1.0 [facility] Calcium [Mass/volume] in Ser um or PlasmaOrdered By: Keith Boyd on 02-04-2023 Calcium [Mass/Vol] 8.9 mg/dL 8.6-10.3 [facility] Carbon dioxide, total [Moles /volume] in Serum or PlasmaOrdered By: Keith Boyd on 02-04-2023 CO2 [Moles/Vol] 24.8 mmol/L 21.0-31.0 [facility] Chloride [Moles/volume] in S gerry or PlasmaOrdered By: Keith Boyd on 02-04-2023 Chloride [Moles/Vol] 106 mmol/L 98-107 [facility] Cholesterol [Mass/volume] in Serum or PlasmaOrdered By: Keith Boyd on 02-04-2023 Cholesterol [Mass/Vol] 149 mg/dL 140-200 [facility] Comment on above: Chol less than 200 m g/dl low riskChol 201-239 mg/dl borderline riskChol 240 mg/dl and greater high risk Cholesterol in LDL Calc [Mas s/Vol]Ordered By: Keith Boyd on 02-04-2023 Cholesterol in LDL [Mass/Vol] 88 mg/dL 0-100 [facility] Comment on above: LDL ATP III CLASSIFI CATIONLDL less than 100 mg/dL OptimalLDL 100-129 mg/dL Near or above optimalLDL 130-159 mg/dL Borderline highLDL 160-189 mg/dL HighLDL greater than 189 mg/dL Very high Cholesterol in VLDL Calc [Ma ss/Vol]Ordered By: Keith Boyd on 02-04-2023 Cholesterol in VLDL [Mass/Vol] 11 mg/dL [facility] Creatinine [Mass/volume] in Serum or PlasmaOrdered By: Keith Boyd on 02-04-2023 Creatinine [Mass/Vol] 0.63 mg/dL 0.60-1.20 [facility] Globulin Calc (S) [Mass/Vol] Ordered By: Keith Boyd on 02-04-2023 Globulin (S) [Mass/Vol] 3.0 g/dL F [facility] Glucose [Mass/volume] in Ser um or PlasmaOrdered By: Keith Boyd on 02-04-2023 Glucose [Mass/Vol] 88 mg/dL 70-100 [facility] No Panel InformationOrdered By: Keith Boyd on 02-04-2023 Estimated GFR (CKD-EPI) > 60.0 mL/Min [facility] Nicotine Metabolite Negative Cutoff=25 [facility] Comment on above: Performed at: - [address] [id number] Director: Doug Holden MD, Phone: [phone] Pharmacy Creatinine Clearance (Chem N/A [facility] Potassium [Moles/volume] in Serum or PlasmaOrdered By: Keith Boyd on 02-04-2023 Potassium [Moles/Vol] 4.0 mmol/L 3.5-5.1 [facility] Protein [Mass/volume] in Ser um or PlasmaOrdered By: Keith Boyd on 02-04-2023 Protein [Mass/Vol] 7.0 g/dL 6.4-8.9 [facility] Serum or plasma albumin/glob ulin mass ratioOrdered By: Keith Boyd on 02-04-2023 Albumin/Globulin [Mass ratio] 1.3 {ratio} [facility] Serum or plasma anion gap de terminationOrdered By: Keith Boyd on 02-04-2023 Anion gap [Moles/Vol] 11.2 mmol/L 6.0-15.0 [facility] Serum or plasma high density lipoprotein (HDL) cholesterol measurementOrdered By: Keith Boyd on 02-04-2023 Cholesterol in HDL [Mass/Vol] 49 mg/dL 23-92 [facility] Comment on above: HDL CHOL ATP-III CLA SSIFICATION Cardiovascular RiskHDL > or equal to 60 mg/dL LOWHDL < 40 mg/dL HIGH Serum or plasma total choles terol/high density lipoprotein (HDL) cholesterol mass ratOrdered By: Keith Boyd on 02-04-2023 Cholesterol.total/Cat sterol in HDL [Mass ratio] 3.0 {ratio} <5.0 [facility] Sodium [Moles/volume] in Ser um or PlasmaOrdered By: Keith Boyd on 02-04-2023 Sodium [Moles/Vol] 138 mmol/L 136-145 [facility] Triglyceride [Mass/volume] i n Serum or PlasmaOrdered By: Keith Boyd on 02-04-2023 Triglyceride [Mass/Vol] 58 mg/dL 0-149 [facility] Comment on above: TRIG ATP III CLASSIF ICATIONTRIG less than 150 mg/dL NormalTRIG 150-199 mg/dL Borderline highTRIG 200-500 mg/dL High TRIG greater than 500 mg/dL Very highStandard traceable to the Center for Disease Conrtrol and Prevention (CDC) test method. Urea nitrogen [Mass/volume] in Serum or PlasmaOrdered By: Keith Boyd on 02-04-2023 Urea nitrogen [Mass/Vol] 11 mg/dL 7-25 [facility] CBC AUTO DIFFon 02-07-2022 BASO # 0.0 103/ul Normal 0.0-0.1 [facility] Comment on above: Performed By: #### C BC #### [facility] [address] [place] [address] Dr. Carlos Curry Basophils/100 WBC (Bld) 0.3 % Normal 0.2-2.0 [facility] Comment on above: Performed By: #### C BC #### [facility] [address] [place] [address] Dr. Carlos Curry EO # 0.1 103/ul Normal 0.0-0.7 [facility] Comment on above: Performed By: #### C BC #### [facility] [address] [place] [address] Dr. Carlos Curry Eosinophils/100 WBC (Bld) 0.6 % Critically low 0.9-7.0 [facility] Comment on above: Performed By: #### C BC #### [facility] [address] [place] [address] Dr. Carlos Curry Erythrocyte distribution width (RBC) [Ratio] 13.3 % Normal 11.0-15.0 [facility] Comment on above: Performed By: #### C BC #### [facility] [address] [place] [address] Dr. Carlos Curry Hematocrit (Bld) [Volume fraction] 41.8 % Normal 36.0-48.0 [facility] Comment on above: Performed By: #### C BC #### [facility] [address] [place] [address] Dr. Carlos Curry Hemoglobin (Bld) [Mass/Vol] 14.1 g/dL Normal 12.0-16.0 [facility] Comment on above: Performed By: #### C BC #### [facility] [address] [place] [address] Dr. Carlos Curry IG # 0.05 10e3/ul Critically high 0.00-0.03 [facility] Comment on above: Performed By: #### C BC #### [facility] [address] [place] [address] Dr. Carlos Curry IG % 0.3 % Normal 0.0-0.5 [facility] Comment on above: Performed By: #### C BC #### [facility] [address] [place] [address] Dr. Carlos Curry LYMPH # 2.4 103/ul Normal 1.2-3.8 [facility] Comment on above: Performed By: #### C BC #### [facility] [address] [place] [address] Dr. Carlos Curry Lymphocytes/100 WBC (Bld) 16.9 % Critically low 20.5-60.0 [facility] Comment on above: Performed By: #### C BC #### [facility] [address] [place] [address] Dr. Carlos Curry MANUAL DIFF REQ NO Normal [facility] Comment on above: Performed By: #### C BC #### [facility] [address] [place] [address] Dr. Carlos Curry MCH (RBC) [Entitic mass] 28.0 pg Normal 26.7-34.0 [facility] Comment on above: Performed By: #### C BC #### [facility] [address] [place] [address] Dr. Carlos Curry MCHC (RBC) [Mass/Vol] 33.7 g/dL Normal 29.9-35.2 [facility] Comment on above: Performed By: #### C BC #### [facility] [address] [place] [address] Dr. Carlos Curry MCV (RBC) [Entitic vol] 82.9 fL Normal 81.0-99.0 [facility] Comment on above: Performed By: #### C BC #### [facility] [address] [place] [address] Dr. Carlos Curry MONO # 1.3 103/ul Critically high 0.3-0.8 [facility] Comment on above: Performed By: #### C BC #### [facility] [address] [place] [address] Dr. Carlos Curry Monocytes/100 WBC (Bld) 9.1 % Normal 1.7-12.0 [facility] Comment on above: Performed By: #### C BC #### [facility] [address] [place] [address] Dr. Carlos Curry NEUT # 10.5 103/ul Critically high 1.4-6.5 [facility] Comment on above: Performed By: #### C BC #### [facility] [address] [place] [address] Dr. Carlos Curry Neutrophils/100 WBC (Bld) 72.8 % Normal 43.0-75.0 [facility] Comment on above: Performed By: #### C BC #### [facility] [address] [place] [address] Dr. Carlos Curry Platelet mean volume (Bld) [Entitic vol] 9.7 fL Normal 9.5-13.5 [facility] Comment on above: Performed By: #### C BC #### [facility] [address] [place] [address] Dr. Carlos Curry PLT 217 103/ul Normal 150-450 [facility] Comment on above: Performed By: #### C BC #### [facility] [address] [place] [address] Dr. Carlos Curry RBC 5.04 106/ul Normal 4.20-5.40 [facility] Comment on above: Performed By: #### C BC #### [facility] [address] [place] [address] Dr. Carlos Curry WBC 14.4 103/ul Critically high 4.0-11.0 [facility] Comment on above: Performed By: #### C BC #### [facility] [address] [place], [place] [id number] Dr. Carlos Curry D-DIMERon 02-07-2022 D-DIMER 0.27 mg/L FEU Normal <=0.59 [facility] Comment on above: Performed By: #### D DIM #### [facility] [address] [place] [address] Dr. Carlos Curry D-DIMER COMMENTS SEE BELOW Normal [facility] Comment on above: Result Comment: Incr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 Vital Sign Value Performing Clinician Facility 12-18-2024 07:28-0400 Body height 156.01 cm Carole Salas APRN Work Phone: [facility] 12-18-2024 07:28-0400 Body mass index (BMI) [Ratio] 33.5 kg/m2 Carole Salas APRN Work Phone: [facility] 12-18-2024 07:28-0400 Body weight 81.65 kg Carole Easterwood [employer] Work Phone: [facility] 12-18-2024 07:28-0400 Diastolic blood pressure 75 mm[Hg] Carole Easterwood [employer] Work Phone: [facility] 12-18-2024 07:28-0400 Heart rate 83 /min Carole Easterwood [employer] Work Phone: [facility] 12-18-2024 07:28-0400 SaO2% (BldA) [Mass fraction] 98 % Carole Easterwood [employer] Work Phone: [facility] 12-18-2024 07:28-0400 Systolic blood pressure 105 mm[Hg] Carole Easterwood [employer] Work Phone: [facility] 11-03-2024 10:03-0400 Diastolic blood pressure 78 mm[Hg] Ej Ordaz MD Work Phone: [facility] 11-03-2024 10:03-0400 Systolic blood pressure 120 mm[Hg] Ej Ordaz MD Work Phone: [facility] 10-20-2024 11:45-0400 Diastolic blood pressure 63 mm[Hg] Carole Easterwood [employer] Work Phone: [facility] 10-20-2024 11:45-0400 Heart rate 77 /min Carole Easterwood [employer] Work Phone: [facility] 10-20-2024 11:45-0400 Respiratory rate 16 /min Carole Easterwood [employer] Work Phone: [facility] 10-20-2024 11:45-0400 SaO2% (BldA) [Mass fraction] 100 % Carole Easterwood [employer] Work Phone: [facility] 10-20-2024 11:45-0400 Systolic blood pressure 110 mm[Hg] Carole Easterwood [employer] Work Phone: [facility] 10-20-2024 10:35-0400 Body temperature 97.1 [degF] Carole Easterwood [employer] Work Phone: [facility] 10-20-2024 10:08-0400 Inhaled oxygen flow rate 8 L/min Carole Easterwood [employer] Work Phone: [facility] 10-20-2024 07:50-0400 Body height 157.48 cm Carole Easterwood [employer] Work Phone: [facility] 10-20-2024 07:50-0400 Body weight 79.37 kg Carole Mangoerwood [employer] Work Phone: [facility] 10-13-2024 10:33-0400 Body height 157.48 cm Carole Mangoerwood [employer] Work Phone: [facility] 10-13-2024 10:33-0400 Body mass index (BMI) [Ratio] 31.1 kg/m2 Carole Easterwood [employer] Work Phone: [facility] 10-13-2024 10:33-0400 Body temperature 97.3 [degF] Carole Easterwood [employer] Work Phone: [facility] 10-13-2024 10:33-0400 Body weight 77.11 kg Carole Mangoerwood [employer] Work Phone: [facility] 10-13-2024 10:33-0400 Diastolic blood pressure 70 mm[Hg] Carole Easterwood [employer] Work Phone: [facility] 10-13-2024 10:33-0400 Heart rate 100 /min Carole Easterwood [employer] Work Phone: [facility] 10-13-2024 10:33-0400 Respiratory rate 20 /min Carole Easterwood [employer] Work Phone: [facility] 10-13-2024 10:33-0400 SaO2% (BldA) [Mass fraction] 96 % Carole Salas [employer] Work Phone: [facility] 10-13-2024 10:33-0400 Systolic blood pressure 124 mm[Hg] Carole Salas [employer] Work Phone: [facility] 09-08-2024 15:36-0400 Diastolic blood pressure 76 mm[Hg] Ej Ordaz MD Work Phone: [facility] 09-08-2024 15:36-0400 Systolic blood pressure 126 mm[Hg] Ej Ordaz MD Work Phone: [facility] 08-25-2024 14:54-0400 Body mass index (BMI) [Ratio] 31.09 kg/m2 Ej Ordaz MD Work Phone: [facility] 08-25-2024 14:54-0400 Body weight 77.11 kg Ej Ordaz MD Work Phone: [facility] 08-25-2024 14:54-0400 Diastolic blood pressure 72 mm[Hg] Ej Ordaz MD Work Phone: [facility] 08-25-2024 14:54-0400 Systolic blood pressure 124 mm[Hg] Ej Ordaz MD Work Phone: [facility] 08-12-2024 14:49-0400 Body height 157.48 cm [place] 08-12-2024 14:49-0400 Body mass index (BMI) [Ratio] 31.6 kg/m2 [facility] 08-12-2024 14:49-0400 Body temperature 98.5 [degF] [facility] 08-12-2024 14:49-0400 Body weight 78.47 kg [place] 08-12-2024 14:49-0400 Diastolic blood pressure 80 mm[Hg] [facility] 08-12-2024 14:49-0400 Heart rate 98 /min [place] 08-12-2024 14:49-0400 Respiratory rate 20 /min [facility] 08-12-2024 14:49-0400 SaO2% (BldA) [Mass fraction] 96 % [facility] 08-12-2024 14:49-0400 Systolic blood pressure 118 mm[Hg] [facility] 07-13-2024 08:25-0400 Body height 157.48 cm Leena Lovell DO Work Phone: [facility] 07-13-2024 08:25-0400 Body mass index (BMI) [Ratio] 31.4 kg/m2 Leena Lovell DO Work Phone: [facility] 07-13-2024 08:25-0400 Body temperature 98 [degF] Leena Lovell DO Work Phone: [facility] 07-13-2024 08:25-0400 Body weight 78.01 kg Leena Lovell DO Work Phone: [facility] 07-13-2024 08:25-0400 Diastolic blood pressure 70 mm[Hg] Leena Lovell DO Work Phone: [facility] 07-13-2024 08:25-0400 Heart rate 88 /min Leena Lovell DO Work Phone: [facility] 07-13-2024 08:25-0400 Respiratory rate 20 /min Leena Lovell DO Work Phone: [facility] 07-13-2024 08:25-0400 SaO2% (BldA) [Mass fraction] 97 % Leena Lovell DO Work Phone: [facility] 07-13-2024 08:25-0400 Systolic blood pressure 112 mm[Hg] Leena Lovell DO Work Phone: [facility] 04-17-2024 13:05-0500 Body height 157.48 cm Leena Lovell DO Work Phone: [facility] 04-17-2024 13:05-0500 Body temperature 98.2 [degF] Leena Lovell DO Work Phone: [facility] 04-17-2024 13:05-0500 Body weight 76.3 kg Leena Lovell DO Work Phone: [facility] 04-17-2024 13:05-0500 Diastolic blood pressure 67 mm[Hg] Leena Lovell DO Work Phone: [facility] 04-17-2024 13:05-0500 Heart rate 88 /min Leena Lovell DO Work Phone: [facility] 04-17-2024 13:05-0500 Respiratory rate 14 /min Leena Lovell DO Work Phone: [facility] 04-17-2024 13:05-0500 SaO2% (BldA) [Mass fraction] 99 % Leena Lovell DO Work Phone: [facility] 04-17-2024 13:05-0500 Systolic blood pressure 130 mm[Hg] Leena Lovell DO Work Phone: [facility] 02-25-2024 09:57-0400 Body height 157.48 cm DO Leena Lovell Work Phone: [facility] 02-25-2024 09:57-0400 Body mass index (BMI) [Ratio] 29.1 kg/m2 DO Leena Lovell Work Phone: [facility] 02-25-2024 09:57-0400 Body temperature 98.5 [degF] DO Leena Lovell Work Phone: [facility] 02-25-2024 09:57-0400 Body weight 72.31 kg DO Leena Lovell Work Phone: [facility] 02-25-2024 09:57-0400 Diastolic blood pressure 68 mm[Hg] DO Leena Lovell Work Phone: [facility] 02-25-2024 09:57-0400 Heart rate 87 /min DO Leena Lovell Work Phone: [facility] 02-25-2024 09:57-0400 Respiratory rate 20 /min DO Leena Lovell Work Phone: [facility] 02-25-2024 09:57-0400 SaO2% (BldA) [Mass fraction] 98 % DO Leena Lovell Work Phone: [facility] 02-25-2024 09:57-0400 Systolic blood pressure 108 mm[Hg] DO Leena Lovell Work Phone: [facility] 02-15-2024 09:17-0400 Body height 157.48 cm DO Leena Lovell Work Phone: [facility] 02-15-2024 09:17-0400 Body mass index (BMI) [Ratio] 29.6 kg/m2 DO Leena Lovell Work Phone: [facility] 02-15-2024 09:17-0400 Body temperature 101 [degF] DO Leena Lovell Work Phone: [facility] 02-15-2024 09:17-0400 Body weight 73.48 kg DO Leena Lovell Work Phone: [facility] 02-15-2024 09:17-0400 Diastolic blood pressure 69 mm[Hg] DO Leena Lovell Work Phone: [facility] 02-15-2024 09:17-0400 Heart rate 138 /min DO Leena Lovell Work Phone: [facility] 02-15-2024 09:17-0400 Respiratory rate 18 /min DO Leena Lovell Work Phone: [facility] 02-15-2024 09:17-0400 SaO2% (BldA) [Mass fraction] 98 % DO Leena Lovell Work Phone: [facility] 02-15-2024 09:17-0400 Systolic blood pressure 104 mm[Hg] DO Leena Lovell Work Phone: [facility] 02-11-2024 15:04-0400 Body height 160.02 cm DO Leena Lovell Work Phone: [facility] 02-11-2024 15:04-0400 Body mass index (BMI) [Ratio] 29.4 kg/m2 DO Leena Lovell Work Phone: [facility] 02-11-2024 15:04-0400 Body weight 75.35 kg DO Leena Lovell Work Phone: [facility] 02-11-2024 15:04-0400 Diastolic blood pressure 72 mm[Hg] DO Leena Lovell Work Phone: [facility] 02-11-2024 15:04-0400 Heart rate 99 /min DO Leena Lovell Work Phone: [facility] 02-11-2024 15:04-0400 Respiratory rate 18 /min DO Leena Lovell Work Phone: [facility] 02-11-2024 15:04-0400 SaO2% (BldA) [Mass fraction] 98 % DO Leena Lovell Work Phone: [facility] 02-11-2024 15:04-0400 Systolic blood pressure 104 mm[Hg] DO Leena Lovell Work Phone: [facility] 12-02-2023 15:43-0400 Body temperature 98.4 [degF] DO Leena Lovell Work Phone: [facility] 12-02-2023 15:43-0400 Diastolic blood pressure 81 mm[Hg] DO Leena Lovell Work Phone: [facility] 12-02-2023 15:43-0400 Heart rate 101 /min DO Leena Lovell Work Phone: [facility] 12-02-2023 15:43-0400 Respiratory rate 16 /min DO Leena Lovell Work Phone: [facility] 12-02-2023 15:43-0400 SaO2% (BldA) [Mass fraction] 99 % DO Leena Lovell Work Phone: [facility] 12-02-2023 15:43-0400 Systolic blood pressure 126 mm[Hg] DO Leena Lovell Work Phone: [facility] 12-02-2023 13:09-0400 Body height 157.48 cm DO Leena Lovell Work Phone: [facility] 12-02-2023 13:09-0400 Body weight 71 kg DO Leena Lovell Work Phone: [facility] 10-04-2023 20:05-0400 Body temperature 98.4 [degF] DO Leena Lovell Work Phone: [facility] 10-04-2023 20:05-0400 Diastolic blood pressure 64 mm[Hg] DO Leena Lovell Work Phone: [facility] 10-04-2023 20:05-0400 Heart rate 87 /min DO Leena Lovell Work Phone: [facility] 10-04-2023 20:05-0400 Respiratory rate 16 /min DO Leena Lovell Work Phone: [facility] 10-04-2023 20:05-0400 SaO2% (BldA) [Mass fraction] 99 % DO Leena Lovell Work Phone: [facility] 10-04-2023 20:05-0400 Systolic blood pressure 100 mm[Hg] DO Leena Lovell Work Phone: [facility] 10-04-2023 17:30-0400 Body height 157.48 cm DO Leena Lovell Work Phone: [facility] 10-04-2023 17:30-0400 Body weight 68.05 kg DO Leena Lovell Work Phone: [facility] 10-04-2023 09:48-0400 Body height 157.48 cm DO Leena Lovell Work Phone: [facility] 10-04-2023 09:48-0400 Body mass index (BMI) [Ratio] 27.8 kg/m2 DO Leena Lovell Work Phone: [facility] 10-04-2023 09:48-0400 Body temperature 98.8 [degF] DO Leena Lovell Work Phone: [facility] 10-04-2023 09:48-0400 Body weight 69.08 kg DO Leena Lovell Work Phone: [facility] 10-04-2023 09:48-0400 Diastolic blood pressure 74 mm[Hg] DO Leena Lovell Work Phone: [facility] 10-04-2023 09:48-0400 Heart rate 84 /min DO Leena Lovell Work Phone: [facility] 10-04-2023 09:48-0400 Respiratory rate 18 /min DO Leena Lovell Work Phone: [facility] 10-04-2023 09:48-0400 SaO2% (BldA) [Mass fraction] 96 % DO Leena Lovell Work Phone: [facility] 10-04-2023 09:48-0400 Systolic blood pressure 120 mm[Hg] DO Leena Lovell Work Phone: [facility] 08-19-2023 14:06-0400 Diastolic blood pressure 58 mm[Hg] DO Leena Lovell Work Phone: [facility] 08-19-2023 14:06-0400 Heart rate 88 /min DO Leena Lovell Work Phone: [facility] 08-19-2023 14:06-0400 Respiratory rate 18 /min DO Leena Lovell Work Phone: [facility] 08-19-2023 14:06-0400 SaO2% (BldA) [Mass fraction] 99 % DO Leena Lovell Work Phone: [facility] 08-19-2023 14:06-0400 Systolic blood pressure 100 mm[Hg] DO Leena Lovell Work Phone: [facility] 08-19-2023 11:36-0400 Body temperature 98.3 [degF] DO Leena Delilah Work Phone: [facility] 08-19-2023 11:33-0400 Body height 157.48 cm DO Leena Lovell Work Phone: [facility] 08-19-2023 11:33-0400 Body weight 68.1 kg DO Leena Delilah Work Phone: [facility] 07-26-2023 12:03-0400 Body height 157.48 cm DO Leena Delilah Work Phone: [facility] 07-26-2023 12:03-0400 Body mass index (BMI) [Ratio] 26.6 kg/m2 DO Leena Lovell Work Phone: [facility] 07-26-2023 12:03-0400 Body temperature 98.7 [degF] DO Leena Lovell Work Phone: [facility] 07-26-2023 12:03-0400 Body weight 65.91 kg DO Leena Lovell Work Phone: [facility] 07-26-2023 12:03-0400 Diastolic blood pressure 82 mm[Hg] DO Leena Lovell Work Phone: [facility] 07-26-2023 12:03-0400 Heart rate 83 /min DO Leena Lovell Work Phone: [facility] 07-26-2023 12:03-0400 Respiratory rate 18 /min DO Leena Lovell Work Phone: [facility] 07-26-2023 12:03-0400 SaO2% (BldA) [Mass fraction] 98 % DO Leena Lovell Work Phone: [facility] 07-26-2023 12:03-0400 Systolic blood pressure 116 mm[Hg] DO Leena Lovell Work Phone: [facility] 07-11-2023 11:53-0400 Diastolic blood pressure 64 mm[Hg] DO Leena Lovell Work Phone: [facility] 07-11-2023 11:53-0400 Heart rate 91 /min DO Leena Lovell Work Phone: [facility] 07-11-2023 11:53-0400 Respiratory rate 12 /min DO Leena Lovell Work Phone: [facility] 07-11-2023 11:53-0400 SaO2% (BldA) [Mass fraction] 98 % DO Leena Lovell Work Phone: [facility] 07-11-2023 11:53-0400 Systolic blood pressure 99 mm[Hg] DO Leena Lovell Work Phone: [facility] 07-11-2023 07:46-0400 Body height 157.48 cm DO Leena Lovell Work Phone: [facility] 07-11-2023 07:46-0400 Body temperature 97.7 [degF] DO Leena Lovell Work Phone: [facility] 07-11-2023 07:46-0400 Body weight 67.1 kg DO Leena Lovell Work Phone: [facility] 07-01-2023 08:53-0500 Body height 157.48 cm DO Leena Lovell Work Phone: [facility] 07-01-2023 08:53-0500 Body mass index (BMI) [Ratio] 27.1 kg/m2 DO Leena Lovell Work Phone: [facility] 07-01-2023 08:53-0500 Body weight 67.13 kg DO Leena Lovell Work Phone: [facility] 07-01-2023 08:53-0500 Diastolic blood pressure 78 mm[Hg] DO Leena Lovell Work Phone: [facility] 07-01-2023 08:53-0500 Heart rate 83 /min DO Leena Lovell Work Phone: [facility] 07-01-2023 08:53-0500 Respiratory rate 18 /min DO Leena Lovell Work Phone: [facility] 07-01-2023 08:53-0500 SaO2% (BldA) [Mass fraction] 97 % DO Leena Lovell Work Phone: [facility] 07-01-2023 08:53-0500 Systolic blood pressure 102 mm[Hg] DO Leena Lovell Work Phone: [facility] 06-05-2023 11:40-0500 Body height 157.48 cm Jael Sanders Other [employer] Other 06-05-2023 11:40-0500 Body mass index (BMI) [Ratio] 27.07 kg/m2 Jael Boonege Other [employer] Other 06-05-2023 11:40-0500 Body weight 67.13 kg Jael Marilyn Other [employer] Other 06-05-2023 11:40-0500 Diastolic blood pressure 60 mm[Hg] Jael Marilyn Other [employer] Other 06-05-2023 11:40-0500 Respiratory rate 20 /min Jael Marilyn Other [employer] Other 06-05-2023 11:40-0500 SaO2% (BldA) [Mass fraction] 98 % Jael Marilyn Other [employer] Other 06-05-2023 11:40-0500 Systolic blood pressure 124 mm[Hg] Jael Marilyn Other [employer] Other 05-20-2023 10:40-0500 Body height 157.48 cm Jael Marilny Other [facility] 05-20-2023 10:40-0500 Body mass index (BMI) [Ratio] 27.25 kg/m2 Jael Marilyn Other [employer] Other 05-20-2023 10:40-0500 Body weight 67.59 kg Jael Marilyn Other [employer] Other 05-20-2023 10:40-0500 Body weight 67.58 kg DO Leena Lovell Work Phone: [facility] 05-20-2023 10:40-0500 Diastolic blood pressure 66 mm[Hg] Jael Marilyn Other [facility] 05-20-2023 10:40-0500 Respiratory rate 20 /min Jael Marilyn Other [facility] [employer] Other 05-20-2023 10:40-0500 SaO2% (BldA) [Mass fraction] 98 % Jael Sanders Other [employer] [facility] [employer] Other 05-20-2023 10:40-0500 Systolic blood pressure 112 mm[Hg] Jael Boonege Other [facility] 05-14-2023 19:04-0500 Diastolic blood pressure 58 mm[Hg] DO Leena Lovell Work Phone: [facility] 05-14-2023 19:04-0500 Heart rate 79 /min DO Leena Lovell Work Phone: [facility] 05-14-2023 19:04-0500 Respiratory rate 16 /min DO Leena Lovell Work Phone: [facility] 05-14-2023 19:04-0500 SaO2% (BldA) [Mass fraction] 100 % DO Leena Lovell Work Phone: [facility] 05-14-2023 19:04-0500 Systolic blood pressure 102 mm[Hg] DO Leena Lovell Work Phone: [facility] 05-14-2023 15:41-0500 Body height 157.48 cm DO Leena Lovell Work Phone: [facility] 05-14-2023 15:41-0500 Body temperature 98 [degF] DO Leena Lovell Work Phone: [facility] 05-14-2023 15:41-0500 Body weight 69.1 kg DO Leena Lovell Work Phone: [facility] 05-01-2023 16:47-0500 Diastolic blood pressure 77 mm[Hg] DO Logan House Work Phone: [facility] 05-01-2023 16:47-0500 Heart rate 134 /min DO Logan [employer] Work Phone: [facility] 05-01-2023 16:47-0500 Respiratory rate 20 /min DO Logan [employer] Work Phone: [facility] 05-01-2023 16:47-0500 Systolic blood pressure 111 mm[Hg] DO Logan [employer] Work Phone: [facility] 05-01-2023 15:50-0500 Body temperature 98.3 [degF] DO Logan [employer] Work Phone: [facility] 05-01-2023 15:50-0500 SaO2% (BldA) [Mass fraction] 99 % DO Logan [employer] Work Phone: [facility] 05-01-2023 10:18-0500 Body height 157.48 cm DO Logan [employer] Work Phone: [facility] 05-01-2023 10:18-0500 Body weight 67.9 kg DO Logan [employer] Work Phone: [facility] 03-18-2023 09:00-0500 Body height 157.48 cm Leena Lovell Other [employer] Other 03-18-2023 09:00-0500 Body mass index (BMI) [Ratio] 27.51 kg/m2 Leena Lovell Other [employer] Other 03-18-2023 09:00-0500 Body weight 68.22 kg Leena Lovell Other [employer] Other 03-18-2023 09:00-0500 Diastolic blood pressure 82 mm[Hg] Leena Lovell Other [employer] Other 11-20-2023 09:00-0500 Respiratory rate 18 /min Leenaclaudio Lovell Other [employer] Other 03-18-2023 09:00-0500 SaO2% (BldA) [Mass fraction] 98 % Leena Lovell Other [employer] Other 03-18-2023 09:00-0500 Systolic blood pressure 114 mm[Hg] Leena Lovell Other [employer] Other 02-06-2022 11:45-0400 Body height 157.48 cm Abril Ahnmond Other [employer] Other 02-06-2022 11:45-0400 Body mass index (BMI) [Ratio] 25.6 kg/m2 Abril Ahnmond Other [facility] Other 02-06-2022 11:45-0400 Body temperature 98.8 [degF] Abril Ahnmond Other [facility] Other 02-06-2022 11:45-0400 Body weight 63.5 kg Abril Ahnmond Other [facility] Other 02-06-2022 11:45-0400 Diastolic blood pressure 70 mm[Hg] Abril Ahnmond Other [facility] Other 02-06-2022 11:45-0400 Respiratory rate 18 /min Abril Ahnmond Other [facility] Other 02-06-2022 11:45-0400 SaO2% (BldA) [Mass fraction] 97 % Abril Johnna Other [facility] Other 02-06-2022 11:45-0400 Systolic blood pressure 111 mm[Hg] Abril Oropeza Other [facility] Other 09-06-2021 18:00-0400 Body height 157.48 cm Abril Oropeza Other [facility] Other 09-06-2021 18:00-0400 Body mass index (BMI) [Ratio] 25.6 kg/m2 Abril Oropeza Other [facility] Other 09-06-2021 18:00-0400 Body temperature 99.6 [degF] Abril Oropeza Other [facility] Other 09-06-2021 18:00-0400 Body weight 63.5 kg Abril Oropeza Other [facility] Other 09-06-2021 18:00-0400 SaO2% (BldA) [Mass fraction] 97 % Abril Oropeza Other [facility] Other Encounters Encounter Date Encounter Type Care Provider Facility Start: 12-18-2024 End: 12-18-2024 ambulatory Carole Salas APRN Work Phone: [facility] Work Phone: Start: 12-18-2024 End: 12-18-2024 Patient encounter procedure Josefina Roman COST CONTROL SPECIALIST -[facility] Work Phone: Start: 11-03-2024 End: 11-03-2024 Kiley Ordaz MD Work Phone: [facility] Start: 11-03-2024 End: 11-03-2024 Kiley Ordaz MD Work Phone: [facility] Start: 11-03-2024 End: 11-03-2024 Postop follow up visit related to original px Ej Ordaz MD Work Phone: [facility] Comment on above: Surgery follow-up (P rimary Dx); Dysmenorrhea; Endometriosis Start: 11-03-2024 End: 11-03-2024 ambulatory EJ ORDAZ Not Available Start: 10-20-2024 End: 10-20-2024 Admission to same day surgery center EJ ORDAZ MD -[facility] [place] Start: 10-20-2024 End: 10-20-2024 ambulatory Ej Ordaz Facility:[facility] Start: 10-13-2024 End: 10-13-2024 Patient encounter procedure Carole Salas APRN -[facility] Work Phone: Start: 09-08-2024 End: 09-08-2024 Office outpatient visit 25 minutes Ej Ordaz MD Work Phone: [facility] Comment on above: Dysmenorrhea (Primar y Dx); Endometriosis Start: 09-08-2024 End: 09-08-2024 ambulatory EJ ORDAZ Not Available Start: 09-04-2024 End: 09-04-2024 Patient encounter procedure Carole Salas APRN Work Phone: [facility] [place] Work Phone: Start: 09-04-2024 End: 09-04-2024 ambulatory Carole Salas APRN Work Phone: [facility] Work Phone: Start: 08-25-2024 End: 08-25-2024 Departed Referred Carole Salas APRN Work Phone: [facility] [place] Work Phone: Start: 08-25-2024 End: 08-25-2024 Initial preventive medicine new pt age 18-39yrs Ej Ordaz MD Work Phone: [facility] Comment on above: Well woman exam with routine gynecological exam (Primary Dx); Cervical cancer screening; Screening for HPV (human papillomavirus); Lower abdominal pain; Screen for STD (sexually transmitted disease); Endometriosis; Dysmenorrhea Start: 08-25-2024 End: 08-25-2024 Patient encounter procedure Ej Ordaz MD Work Phone: [facility] Work Phone: Start: 08-25-2024 End: 08-25-2024 ambulatory Carole Wenwood COST CONTROL SPECIALIST Work Phone: [facility] Work Phone: Start: 08-25-2024 End: 08-25-2024 Bamboo flowsheet Ej Ordaz MD Work Phone: [facility] Start: 08-25-2024 End: 08-25-2024 Bamboo flowsheet Ej Ordaz MD Work Phone: [facility] Start: 08-24-2024 End: 08-24-2024 Patient encounter procedure Carole Wenwood [employer]ST CONTROL SPECIALIST Work Phone: [facility] [address] Work Phone: Start: 08-24-2024 End: 08-24-2024 ambulatory [facility] [employer] CONTROL SPECIALIST Work Phone: [facility] Work Phone: Start: 08-12-2024 End: 08-12-2024 ambulatory [facility] Work Phone: Start: 08-12-2024 End: 08-12-2024 Patient encounter procedure [facility] [place] Work Phone: Start: 07-13-2024 End: 07-13-2024 ambulatory Leena Lovell DO Work Phone: [facility] Work Phone: Start: 07-13-2024 End: 07-13-2024 Patient encounter procedure Leena Lovell DO [facility] [place] Work Phone: Start: 04-17-2024 End: 04-17-2024 Emergency department patient visit Leena Lovell DO Work Phone: [facility]-Emergency Room Work Phone: Start: 02-25-2024 End: 02-25-2024 ambulatory DO Leena A Lovell Work Phone: [facility] Work Phone: Start: 02-25-2024 End: 02-25-2024 Patient encounter procedure DO Leena Lovell Work Phone: [facility] [place] Work Phone: Start: 02-24-2024 End: 02-24-2024 Patient encounter procedure DO Leena Lovell Work Phone: [facility] [place] [facility] Start: 02-24-2024 End: 02-24-2024 ambulatory DO Leena A Lovell Work Phone: [facility] Work Phone: Start: 02-15-2024 End: 02-15-2024 ambulatory DO Leena A Lovell Work Phone: [facility] Work Phone: Start: 02-15-2024 End: 02-15-2024 Patient encounter procedure DO Leena Lovell [facility] [place] Work Phone: Start: 02-11-2024 Physical examination DO Leena Lovell Work Phone: [facility] Start: 02-11-2024 End: 02-11-2024 ambulatory DO Leena A Lovell Work Phone: [facility] Work Phone: Start: 02-11-2024 End: 02-11-2024 Encounter for general adult medical examination without abnormal findings DO Leena Delilah Work Phone: [facility] Start: 02-11-2024 End: 02-11-2024 Patient encounter procedure DO Leena Delilah Work Phone: [facility] Work Phone: Start: 02-03-2024 End: 02-03-2024 Departed Referred DO Leena Delilah Work Phone: [facility] Start: 02-03-2024 End: 02-03-2024 ambulatory DO Leena A Lovell Work Phone: [facility] Work Phone: Start: 12-02-2023 End: 12-02-2023 Emergency department patient visit DO Leena Delilah Work Phone: [facility] Work Phone: Start: 11-22-2023 End: 11-22-2023 ambulatory EFE SANDOVAL Not Available Start: 10-04-2023 End: 10-04-2023 Emergency department patient visit DO Leena Delilah Work Phone: [facility] Work Phone: Start: 10-04-2023 End: 10-04-2023 Departed Referred DO Leena Delilah Work Phone: [facility] [place] Work Phone: Start: 10-04-2023 Registered Referred DO Leena Lovell Work Phone: [facility] [place] Work Phone: Start: 10-04-2023 End: 10-04-2023 ambulatory DO Leena A Lovell Work Phone: [facility] Work Phone: Start: 10-04-2023 End: 10-04-2023 Patient encounter procedure DO Leena Lovell [facility] [place] Work Phone: Start: 08-20-2023 Non-patient / Non-visit DO Sindy chinmay Lovell [facility] Work Phone: Start: 08-19-2023 End: 08-19-2023 Emergency department patient visit DO Leena Lovell Work Phone: [facility]Emergency Room Work Phone: Start: 07-26-2023 End: 07-26-2023 ambulatory DO Leena A Lovell Work Phone: [facility] Work Phone: Start: 07-26-2023 End: 07-26-2023 Patient encounter procedure DO Leena Delilah Work Phone: [facility] [place] Work Phone: Start: 07-11-2023 End: 07-11-2023 Emergency department patient visit DO Leena Delilah Work Phone: [facility]-Emergency Room Work Phone: Start: 07-01-2023 End: 07-01-2023 Patient encounter procedure DO Leena Lovell Work Phone: [facility] Work Phone: Start: 06-28-2023 End: 06-28-2023 Patient encounter procedure DO Leena Lovell Work Phone: [facility]-Electrodiagnostics Work Phone: Start: 06-05-2023 End: 06-05-2023 ambulatory Jael Marilyn Other [employer] Other Start: 06-05-2023 Office outpatient vi sit 25 minutes Jael Marilyn [facility] Start: 05-22-2023 End: 05-22-2023 ambulatory DO Leena A Delilah Work Phone: [facility] Work Phone: Start: 05-22-2023 End: 05-22-2023 Patient encounter procedure DO Leena Delilah Work Phone: [facility] Start: 05-20-2023 End: 05-20-2023 ambulatory Jael Marilyn Other [employer] Other Start: 05-20-2023 Office outpatient ne w 45 minutes Jael Marilyn [facility] Start: 05-20-2023 End: 05-20-2023 Patient encounter procedure DO Leena Delilah Work Phone: [facility]- Start: 05-14-2023 End: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 [facility] 08/24/24 1247 Dictated By: Lorena Noel MD 08/24/24 1239 Signed By: 08/24/24 1247 [facility] Work Phone: 1(817) 433-413403-17-2025 Evaluation note* Diagnosis Onset Date Resolution Status Admit Date Depression acute July 13 8:21am Sleep disturbance acute June 272024 8:21am [facility] Work Phone: 1(325) 560-972503-17-2025 Evaluation note* Diagnosis Onset Date Resolution Status Admit Date Depression acute July 13 8:21am Sleep disturbance acute June 272024 8:21am LLQ abdominal pain acute August 12, 2024 2:48pm [facility] Work Phone: 1([phone]) 140-684902-07-2024 Evaluation note* Encounter Date Diagnosis Assessment Notes Treatment Notes Treatment Clinical Notes May, Palpitations (ICD-10 - R00.2) Ms Hernandez is a 22 yr old female with no significnat medical history. Recently seen at [facility] on 05/01 for tachycardia and 05/14 for CP. She also had a 48 hr HM done 05/13. Has constant chest discomfort and palpitations, becomes worse with exertion, notes significant [place]. Assessment: Atypical chest pain & dyspnea Possible costocondritis- chest pain reproducible on exam Plan: - ZEFERINO and ESR negative; hsCRP elevated at 9.3 which indicates inflammatory process-encouraged to continue Ibuprofen for chest pain relief. There is a musculoskeletal component to the pain. - Will check regular treadmill stress test to r/o ischemia - ECHO to r/o structural heart disease. - No longer taking Phentermine. - Follow up in 2 weeks. May, Chest pain, atypical (ICD-10 - R07.89) May, [place] (dyspnea on exertion) (ICD-10 - R06.09) [facility] Other 01-22-2024 Evaluation note* Encounter Date Diagnosis Assessment Notes Treatment Notes Treatment Clinical Notes Apr, Palpitations (ICD-10 - R00.2) Ms Hernandez is a 22 yr old female with no significnat medical history. Recently seen at [facility] on 05/01 for tachycardia and 05/14 for CP. She also had a 48 hr HM done 05/13. Has constant chest discomfort and palpitations, becomes worse with exertion, notes significant [place]. Assessment: Non cardiac pleuritic chest pain. No signs of pericarditis noted on EKG Possible costocondritis- chest pain reproducible on exam Plan: - Will check ESR/CRP to r/o pericarditis as well as ZEFERINO screen given history of SLE in mother. - Advised to continue Ibuprofen for pain control- Can take 800mg TID for 3 days and then continue PRN. - Advised to stop Phentermine as this has been known to cause chest pain and has been linked to pulmonary hypertension. - Follow up in 2 weeks. Apr, Chest pain, atypical (ICD-10 - R07.89) Apr, [place] (dyspnea on exertion) (ICD-10 - R06.09) [facility] Other 12-04-2023 Evaluation note* Encounter Date Diagnosis Assessment Notes Treatment Notes Treatment Clinical Notes Mar, Biceps tendinitis of left upper extremity (ICD-10 - M75.22) Images were reviewed with the patient and possible pain etiologies were discussed. Many of the patient's symptoms are coming from a strain to the biceps tendon. Treatment modalities were discussed including oral anti-inflammatories, corticosteroid injections, physical therapy. We discussed that patient's symptoms will most likely resolve with conservative management. If the patient's symptoms persist, we will consider obtaining an MRI as well as possible surgery. Physical therapy was emphasized to the patient and performing the exercises on their own in addition to formal therapy. Formal therapy order was given to patient. Meloxicam 15mg was sent in. All questions answered and patient agreed with the treatment plan. Mar, Carpal tunnel syndrome of left wrist (ICD-10 - G56.02) Based on the patient's symptoms and physical exam, it appears that they are suffering from carpal tunnel syndrome. Etiology of the symptoms were discussed with the patient. We discussed treatment options in the form of observation, night splints, corticosteroid injections, and surgery. We will proceed conservatively. We provided her with a wrist brace to wear at night for immobilization. Mar, Acute pain of left shoulder (ICD-10 - M25.512) [facility] Other 11-20-2023 Evaluation note* Encounter Date Diagnosis Assessment Notes Treatment Notes Treatment Clinical Notes Feb, Well adult exam (ICD-10 - Z00.00) Doing well, no issues or concernsDiscussed starting routine screening pap age 22, encouraged to scheduleNo family history of breast cancer, discussed starting routine screening with mammogram at age 40Fam hx colon cancer in [place], discussed starting routine screening with colonoscopy at age 46Up to date on flu vaccineReviewed recent screening lab work [facility] Other 01-01-2023 History general Narrative - Reported* Type Description Date Medical History asthma as child Hospitalization History pneumonia 10 yrs a go Hospitalization History [facility]--medication adv erse reaction 04/2022 [facility] Other 10-11-2022 Evaluation note* Encounter Date Diagnosis Assessment Notes Treatment Notes Treatment Clinical Notes Jan, Contact with and (suspected) exposure to other viral communicable diseases (ICD-10 - Z20.828) Jan, Acute sinusitis, recurrence not specified, unspecified location (ICD-10 - J01.90) Sinusitis home care material was printed Drink plenty fluids, get plenty of rest. Take the prednisone as prescribed until gone. Use the Flonase nasal inhaler until symptoms improve. Take Tylenol or Motrin for aches pains or fevers. Follow-up with your family physician if no improvement in 2 to 3 days. [facility] Other 05-11-2022 Evaluation note* Encounter Date Diagnosis Assessment Notes Treatment Notes Treatment Clinical Notes August, Nausea and vomiting, unspecified vomiting type (ICD-10 - R11.2) Drink plenty fluids, get plenty of rest. Take Zofran as prescribed as needed for nausea and vomiting. Take Tylenol or Motrin as needed for aches pains or fevers. Off work through Saturday, you may return to work on Saturday however you must wear a mask until next Saturday due to your positive COVID status. Follow-up with your family physician if no improvement in 2 to 3 days. Go to the ER for worsening symptoms or concerns. August, COVID-19 (ICD-10 - U07.1) August, Fever (ICD-10 - R50.9) August, Viral illness (ICD-10 - B34.9) [facility] Other chief complaint+Reason for visit Narrative* Chief Complaint elevated heart rate Tachycardia chest pains Self Referral Has Concerns With Increase r00.2 r07.89 r06.09 R00.2 R07.89 R06.09 2 weeks passed out Reason for Visit Atypical chest pain Costochondritis [facility] Work Phone: chief complaint+Reason for visit Narrative* Chief Complaint elevated heart rate Tachycardia chest pains Self Referral Has Concerns With Increase r00.2 r07.89 r06.09 R00.2 R07.89 R06.09 2 weeks passed out persistent cough since having Covid in [place] Reason for Visit Atypical chest pain Costochondritis Post-viral cough syndrome [facility] Work Phone: evaluation noteNo assessment information available [facility] Work Phone: evaluation noteNo InformationNort [employer] Other Evaluation note* Diagnosis Onset Date Resolution Status Atypical chest pain acute Costochondritis acute [facility] Work Phone: Evaluation note* Diagnosis Onset Date Resolution Status Atypical chest pain acute Costochondritis acute Post-viral cough syndrome ac [place] [facility] Work Phone: evaluation note* Diagnosis Onset Date Resolution Status Post-viral cough syndrome ac [place] Pharyngitis noneactive [facility] Work Phone: Evaluation note* Diagnosis Onset Date Resolution Status Pharyngitis noneactive [facility] Work Phone: Evaluation note* Diagnosis Onset Date Resolution Status Well adult exam acute [facility] Work Phone: evaluation note* Diagnosis Onset Date Resolution Status Well adult exam acute Viral URI with cough acute [facility] Work Phone: evaluation note* Diagnosis Onset Date Resolution Status Well adult exam acute Viral URI with cough acute Bronchial pneumonia noneacti ve [facility] Work Phone: Evaluation note* Diagnosis Well woman exam with routine gynecological exam- Primary Routine gynecological examination Cervical cancer screening Screening for malignant neoplasm of the cervix Screening for HPV (human papillomavirus) Special screening examination for human papillomavirus (HPV) Lower abdominal pain Abdominal pain, other specified site Screen for STD (sexually transmitted disease) Screening examination for venereal disease Endometriosis Endometriosis, site unspecified Dysmenorrhea [facility] Diagnosis Dysmenorrhea- Primary Endometriosis Endometriosis, site unspecified [facility] Diagnosis Surgery follow-up- Primary Dysmenorrhea Endometriosis Endometriosis, site unspecified [facility] this [facility] Narrative - Reported* Type Description Date Medical History asthma Hospitalization History pneumonia [facility] Other History general Narrative - Reported* Type Description Date Medical History asthma as child Hospitalization History see above Hospitalization History pneumonia Hospitalization History [facility]--medication adv erse reaction 2021 [facility] Other Hospital Discharge instructions Additional Instructions We evaluated you for your chest pain. Your workup here was unremarkable. Please follow with your provider service representative as well as primary care provider as soon as possible. Please return to the emergency department if you develop any worsening or concerning symptoms.[facility] Work Phone: Hospital Discharge instructions Additional Instructions Take Tylenol or Naprosyn if needed for pain Warm compresses Massage Automatic Edger sour candy may be picked beneficial Take antibiotic as instructed until gone Please follow-up with your PCP call Saturday for appointment for reeval Please return here if you have any increased pain, swelling, fevers, chills or any other concernGalion Hospital Work Phone: Hospital Discharge instructions Additional Instructions [place] diet nothing spicy fast food or fried until you are all better Start with clear fluids add thicker fluids soups and crackers as able For nausea take the Zofran every 8 hours For abdominal cramping diarrhea you can take the Bentyl 3 times a day as needed For just discomfort you can take the ketorolac every 6 hours Follow-up with your family doctor for recheck Return to the ER for worsening pain high fever persistent vomiting or any other concernsGalion Hospital Work Phone: Reason for referral (narrative)No reason for referral information availableGenesis Hospital Work Phone: [place] for visit NarrativeSELF REFERRAL HAS CONCERNS WITH INCREASED HEART RATENopemiscot [facility] [employer] Other Summary Purpose Family History Relationship Condition Age at Onset Recorded Date/T shubham grandparent Malignant neoplasm Unknown Not Specified Family history of mental disorder Unknow n Relationship Condition Age at Onset Recorded Date/T shubham grandparent Malignant neoplasm Unknown mother Family history of mental disorder Unknown Relationship Condition Age at Onset Recorded Date/T shubham grandparent Malignant neoplasm of lung Unknown Malignant neoplasm of brain Unknown mother Lupus Unknown father Unknown whether bethel ent has any health problems Unknown Relationship Condition Age at Onset Recorded Date/T shubham maternal grandmother Malignant neoplasm of lung Unknow n Malignant neoplasm of brain Unknown Malignant neoplasm Unknown mother Lupus Unknown Chronic mental illness Unknown father Unknown whether bethel ent has any health problems Unknown Advance Directives Advance Directive Response Recorded Date/ Time Advance Directives No March 9:28pm Advance Directive Response Recorded Date/ Time Advance Directives No March 8:28pm Chief Complaint and Reason for Visit Chief Complaint LABS for PRE EMPLOYM ENT Chief Complaint LABS for PRE EMPLOYM ENT M25.512 Left Bicep Tendinitis elevated heart rate Chief Complaint M25.512 Left Bicep Tendinitis elevated heart rate Tachycardia Chief Complaint M25.512 Left Bicep Tendinitis elevated heart rate Tachycardia chest pains Chief Complaint Est Pcp/Pillars M25.512 Left Bicep Tendinitis elevated heart rate Tachycardia chest pains Chief Complaint Est Pcp/Pillars M25.512 Left Bicep Tendinitis elevated heart rate Tachycardia chest pains r00.2 r07.89 r06.09 Chief Complaint r00.2 r07.89 r06.09 R00.2 R07.89 R06.09 2 weeks passed out persistent cough since having Covid in Apr vomiting Reason for Visit Atypical chest pain Costochondritis Post-viral cough syndrome Chief Complaint passed out persistent cough since having Covid in Apr vomiting Amb Documentation lump on l jaw line Reason for Visit Post-viral cough syn drome Pharyngitis Chief Complaint passed out persistent cough since having Covid in Apr vomiting Amb Documentation lump on l jaw line Pharyngitis lt side facial swelling Reason for Visit Post-viral cough syn drome Pharyngitis Chief Complaint lump on l jaw line j02.9 lt side facial swelling abd pain/cramping Reason for Visit Pharyngitis Chief Complaint abd pain/cramping Pillars Chief Complaint abd pain/cramping Pillars Pillars Reason for Visit Well adult exam Chief Complaint abd pain/cramping Pillars Pillars Congestion, sore throat Reason for Visit Well adult exam Chief Complaint abd pain/cramping Pillars Pillars Congestion, sore throat R05.9 - Cough, unspecified Reason for Visit Well adult exam Viral URI with cough Chief Complaint abd pain/cramping Pillars Pillars Congestion, sore throat R05.9 - Cough, unspecified cold like symptoms/coughing up blood Reason for Visit Well adult exam Viral URI with cough Bronchial pneumonia Chief Complaint Admit Date neck pain, shoulder pain April 17, 2024 12:55pm establish July 13, 2024 8:2 1am Chief Complaint Admit Date establish July 13, 2024 8:2 1am abdominal pain August 12, 2024 2:4 8pm Reason for Visit Admit Date Depression July 13, 2024 8:2 1am Sleep disturbance July 13, 2024 8:2 1am Chief Complaint Admit Date establish July 13, 2024 8:2 1am abdominal pain August 12, 2024 2:4 8pm R10.32 August 24, 2024 7:3 3am Reason for Visit Admit Date Depression July 13, 2024 8:2 1am Sleep disturbance July 13, 2024 8:2 1am LLQ abdominal pain August 12, 2024 2:4 8pm Chief Complaint Admit Date establish July 13, 2024 8:2 1am abdominal pain August 12, 2024 2:4 8pm R10.32 August 24, 2024 7:3 3am Z12.4 Z11.51 Z11.3 August 25, 2024 3:0 0pm N80.9 N94.6 f31.81 z79.899 September 04, 2024 12:14pm Chief Complaint Admit Date *lab* congestion, sore throat, nausea, f ever 102 October 13, 2024 10:26am Dysmenorrhea, Endometriosis October 20, 2 025 7:22am [facility] ([facility]) December 18 7:14am Reason for Visit Admit Date URI (upper respiratory infection) September 272024 10:26am Additional Source Comments INFORMATION SOURCE (unrecogn ized section and content) DATE CREATED AUTHOR 10/22/2017 [facility] DATE CREATED AUTHOR AUTHOR'S ORGANIZ ATION 02/07/2022 [facility] DATE CREATED AUTHOR AUTHOR'S ORGANIZ ATION 11/07/2024 [facility] DATE CREATED AUTHOR AUTHOR'S ORGANIZ ATION 11/20/2024 [facility] REASON FOR VISIT (unrecogniz ed section and content) BLACK ANA, SORE THROAT, COUG HCONGESTIONEST PCP/ANALeroopa Shoulder Painclinical2 WEEK FOLLOW UP Care Teams (unrecognized sec tion and content) Team Status: Active Member Role Status Dates Logan Jang , DO Primary Care Provider Active Team Status: Inactive Member Role Status Dates Logan Jang , DO Primary Care Provider Active Keith Boyd , DO [facility] Attending Provider Active Team Status: Active Member Role Status Dates Leena Lovell , DO Primary Care Provider Active Team Status: Inactive Member Role Status Dates Carlos Salas , DO Attending Provider Active Team Status: Inactive Member Role Status Dates Leena Lovell , DO Primary Care Provider Active Juan F Silvestre PA-C Emergency Provider Active Team Status: Active Member Role Status Dates Carlos Salas , DO Attending Provider Active Leena Lovell , DO Primary Care Provider Active Team Status: Inactive Member Role Status Dates Leena Lovell , DO Primary Care Provider Active Juan F Silvestre PA-C Attending Provider Active Team Status: Inactive Member Role Status Dates Leena Lovell , Primary Care Provider Active Airam Grant , DO Emergency Provider Active Team Status: Inactive Member Role Status Dates Leena Lovell , DO Attending Provider Active St art: March 18, 2023 End: March 18, 2023 Team Status: Active Member Role Status Dates Provider Conversion Attending Provider Active St art: April 01, 2023 Team Status: Inactive Member Role Status Dates Carlos Salas , Attending Provider Active St art: April 01, 2023 End: April 01, 2023 Team Status: Inactive Member Role Status Dates Carlos Salas , Attending Provider Active St art: April 09, 2023 End: April 09, 2023 Leena Lovell DO Primary Care Provider Active Start: April 09, 2023 End: April 09, 2023 Team Status: Inactive Member Role Status Dates Leena Lovell , Primary Care Provider Active Start: May 01, 2023 End: May 01, 2023 Juan F Silvestre PA-C Emergency Provider Active Start: May 01, 2023 End: May 01, 2023 Team Status: Inactive Member Role Status Dates Leena Lovell , Primary Care Provider Active Start: May 09, 2023 End: May 09, 2023 Juan F Silvestre PA-C Attending Provider Active Start: May 09, 2023 End: May 09, 2023 Team Status: Inactive Member Role Status Hilda Lovell DO Primary Care Provider Active Start: May 14, 2023 End: May 14, 2023 Airam Grant DO Emergency Provider Active Start: May 14, 2023 End: May 14, 2023 Team Status: Inactive Member Role Status Hilda Lovell DO Primary Care Provider Active Start: May 22, 2023 End: May 22, 2023 Jael Sanders MD Attending Provider Active Sta rt: May 22, 2023 End: May 22, 2023 Team Status: Inactive Member Role Status Hilda Sanders MD Attending Provider Active Sta rt: May 20, 2023 End: May 20, 2023 Team Status: Inactive Member Role Status Hilda Lovell DO Primary Care Provider Active Start: June 28, 2023 End: June 28, 2023 Jael Sanders MD Attending Provider Active Sta rt: June 28, 2023 End: June 28, 2023 Team Status: Inactive Member Role Status Hilda Lovell DO Primary Care Provider Active Start: July 01, 2023 End: July 01, 2023 Jael Sanders MD Attending Provider Active Sta rt: July 01, 2023 End: July 01, 2023 Team Status: Inactive Member Role Status Hilda Lovell DO Primary Care Provider Active Start: July 11, 2023 End: July 11, 2023 Sp Cazares DO Emergency Provider Active Sta rt: July 11, 2023 End: July 11, 2023 Team Status: Inactive Member Role Status Hilda Lovell DO Primary Care Provide r, Attending Provider Active Start: July 26, 2023 End: July 26, 2023 Team Status: Inactive Member Role Status Hilda Lovell DO Primary Care Provider Active Start: August 19, 2023 End: August 19, 2023 Wilder Burk DO Emergency Provider Active S tart: August 19, 2023 End: August 19, 2023 Team Status: Active Member Role Status Hilda Lovell DO Primary Care Provider Active Start: August 20, 2023 Lolis Chu LPN Attending Provider Active Sta rt: August 20, 2023 Team Status: Inactive Member Role Status Hilda Lovell , DO Primary Care Provider Active Start: October 04, 2023 End: October 04, 2023 Kenneth Ballard APRN Attending Provider Active Start: October 04, 2023 End: October 04, 2023 Team Status: Active Member Role Status Dates Kenneth Ballard APRN Attending Provider Active Start: October 04, 2023 Team Status: Inactive Member Role Status Dates Leena Lovell DO Primary Care Provider Active Start: October 04, 2023 End: October 04, 2023 Ashish Oropeza APRN Emergency Provider Active Start: October 04, 2023 End: October 04, 2023 Team Status: Inactive Member Role Status Dates Kenneth Ballard APRN Attending Provider Active Start: October 04, 2023 End: October 04, 2023 Team Status: Inactive Member Role Status Dates Leena Lovell DO Primary Care Provider Active Start: December 02, 2023 End: December 02, 2023 Suad Johnson [facility] Emergency Provider Active Start: December 02, 2023 End: December 02, 2023 Team Status: Inactive Member Role Status Dates Leena Lovell DO Primary Care Provider Active Start: February 03, 2024 End: February 03, 2024 Keith Nunez [facility] , DO CH[facility] Attending Provider Active Start: February 03, 2024 End: February 03, 2024 Team Status: Inactive Member Role Status Dates Leena Lovell DO Primary Care Provide r, Attending Provider Active Start: February 11, 2024 End: February 11, 2024 Team Status: Inactive Member Role Status Dates Leena Lovell DO Primary Care Provider Active Start: February 15, 2024 End: February 15, 2024 Macrina Salas APRN Attending Provider Active Start: February 15, 2024 End: February 15, 2024 Team Status: Inactive Member Role Status Dates Leena Lovell DO Primary Care Provide r, Attending Provider Active Start: February 24, 2024 End: February 24, 2024 Team Status: Inactive Member Role Status Dates Leena Lovell DO Primary Care Provider Active Start: February 25, 2024 End: February 25, 2024 Kenneth Ballard APRN Attending Provider Active Start: February 25, 2024 End: February 25, 2024 Team Status: Active Member Role Status Dates Carole Salas APRN Primary Care Provider Active Team Status: Inactive Member Role Status Dates Leena Lovell DO Primary Care Provider Active Start: April 17, 2024 End: April 17, 2024 Stacy Rodriguez APRN Emergency Provider Active Start: April 17, 2024 End: April 17, 2024 Team Status: Inactive Member Role Status Dates Carole Salas APRN Primary Care Pr ovider, Attending Provider Active Start: July 13, 2024 End: July 13, 2024 Team Status: Inactive Member Role Status Dates Carole Salas APRN Primary Care Pr ovider, Attending Provider Active Start: August 12, 2024 End: August 12, 2024 Team Status: Inactive Member Role Status Dates Carole Salas APRN Primary Care Pr ovider, Attending Provider Active Start: August 24, 2024 End: August 24, 2024 Dope Pourer Relationship Specialty Start Date End Date Leena Lovell DO [address] [place] [address] PCP - General Family Medicine 11/12/23 Efe Sandoval DO [address] [place] [address] Otolaryngology 11/12/23 Dope Pourer Relationship Specialty Start Date End Date Leena Lovell DO [address] [place] [address] PCP - General Family Medicine 11/12/23 Efe Sandoval DO [address] [place] [address] Otolaryngology 11/12/23 Team Status: Inactive Member Role Status Dates Ej Ordaz MD Attending Provider Active Star t: August 25, 2024 End: August 25, 2024 Dope Pourer Relationship Specialty Start Date End Date Leena Lovell [address] [place] [place] [address] PCP - General Family Medicine 11/12/23 Efe Sandoval, [address] [place] [place] [address] Otolaryngology 11/12/23 Team Status: Inactive Member Role Status Dates Ej Ordaz MD Attending Provider Active Star t: August 25, 2024 End: August 25, 2024 PHYSICIAN NO FAMILY Primary Care Provider Active Start: August 25, 2024 End: August 25, 2024 Team Status: Inactive Member Role Status Dates Ej Ordaz MD Attending Provider Active Star t: September 04, 2024 End: September 04, 2024 Carole Salas APRN Primary Care Provider Active Start: September 04, 2024 End: September 04, 2024 Rosa Lauren NP-C Other Provider Active Sta rt: September 04, 2024 End: September 04, 2024 Dope Pourer Relationship Specialty Start Date End Date Leena Lovell DO [address] [place] [address] PCP - General Family Medicine 11/12/23 Efe Sandoval, [address] [place] [address] Otolaryngology 11/12/23 Team Status: Inactive Member Role Status Dates Carole Salas APRN Primary Care Provider Active Start: October 13, 2024 End: October 13, 2024 Carole Salas APRN Attending Provider Active Start: October 13, 2024 End: October 13, 2024 Team Status: Inactive Member Role Status Dates Carole Salas APRN Primary Care Provider Active Start: October 20, 2024 End: October 20, 2024 Ej Ordaz MD Attending Provider Active Star t: October 20, 2024 End: October 20, 2024 Team Status: Inactive Member Role Status Dates Carole Mansi Salas APRN Primary Care Provider Active Start: December 18, 2024 End: December 18, 2024 Josefina Roman APRN Attending Provider Active Start: December 18, 2024 End: December 18, 2024 Goals (unrecognized section and content) Goals may be documented in a n alternate section FOR RECORDS PERTAINING TO PATIENTS WHO ARE OR HAVE BEEN ENROLLED IN A CHEMICAL DEPENDENCY/SUBSTANCEABUSE PROGRAM, SOME INFORMATION MAY BE OMITTED. This clinical summary was aggregated from multiple sources. Caution should be exercised in using it in the provision of clinical care. This summary normalizes information from multiple sources, and as a consequence, information in this document may materially change the coding, format and clinical context of patient data. In addition, data may be omitted in some cases. CLINICAL DECISIONS SHOULD BE BASED ON THE PRIMARY CLINICAL RECORDS. [facility] [employer] provides no warranty or guarantee of the accuracy or completeness of information in this document.
--- NOTE | 2024-12-28 19:31 | XR_ITS ---
[facility] [place] [id number] Patient Name: LUIS CHAMBERLAIN MRN: [id number] date: 2000 Sex: F Assigned Patient Location: ED.MAIN Current Patient Location: Accession/Order Number: [id number] Exam Date: 12/28/2024 19:30 Report Date: 12/29/2024 07:37 At the request of: NASIMA REED DO Procedure: XR ankle LT min 3V XR ankle LT min 3V 12/28/2024 7:47 PM SIGNS AND SYMPTOMS: ^rolled ankle inwards, left ankle pain PROTOCOL: frontal, lateral, and oblique radiographs of the left ankle COMPARISON: None FINDINGS: The ankle mortise is preserved. There is no evidence of fracture or dislocation. No significant soft tissue swelling. XR/XR ankle LT min 3V IMPRESSION: No fracture. Impression dictated by: Craig Hays M.D. 12/29/2024 7:37 AM Dictation Location: [place] [address] Electronically authenticated by: [id number] Y Date: 12/29/2024 07:37
--- NOTE | 2024-12-28 19:35 | ED_ITS ---
HPI HPI - General Adult General Chief complaint: Extremity Injury, Lower Stated complaint: PAIN IN L ANKLE Time Seen by Provider: 12/28/24 19:24 Source: patient Mode of arrival: Wheelchair History of Present Illness HPI narrative: The patient is a healthy 24-year-old female who presents to the emergency department for left ankle pain. The patient states that she was getting into a golf cart. The golf cart was parked on a hill. And the patient was going to get in when her left ankle rolled inward and the patient fell. She was able to get up after it happened. But over the last hour the pain has gotten so progressive she is unable to ambulate now. Patient did not take anything for the pain. No history of previous injury. Pain is moderate in severity. Try to walk on it makes it worse. Nothing makes it better. Patient states that the pain does radiate up the side of her left calf when she tries to apply pressure. And there are some swelling to the top of her foot. 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 She does have to work tomorrow she is not requesting a work note. Related Data Previous Rx's ?Medication ?Instructions ?Recorded hydrocodone 5 mg-acetaminophen 325 1 tab PO Q6H PRN pa in #10 tabs 12/28/24 mg tablet Allergies Allergy/AdvReac Type Severity Reaction Status Date / Time prednisone AdvReac Chest Pain Verified 05/24/24 01:51 Opioid HPI Opioid Management Most Recent Opioid Data: Last Pain Scale 7 Today, 19:43 Review of Systems ROS0 Status of ROS 10 or more systems reviewed and unremark able except as noted in history and below PFSH PFSH Social History Little interest or pleasure in doing things: not at all Feeling down, depressed, or hopeless: not at all Exam Narrative Exam Narrative: Prior to examining the patient, I have washed with hospital approved and provided Antiseptic Hand Tire Service Technician and have also applied gloves.? Prior to touching the patient, I asked for consent to examine the patient.? General: Alert and oriented, well nourished, moderate distress. Eye: PERRL, EOMI, normal conjunctiva. HENT: Normocephalic, normal hearing, moist oral mucosa, no scleral icterus Musculoskeletal: Normal range of motion and strength, There is enderness in the left ankle and foot that lmits the effort and ROM in the extremity. there is swelling to the dorsum of the foot. the patient has more pain to the talofibular ligaments than the distal fibula. Skin: Skin is warm, dry and pink, no rashes or lesions. Neurologic: Awake, alert, and oriented X3, CN II-XII intact. Psychiatric: Cooperative, appropriate mood and affect.? Following the conclusion of the examination, I have washed my hands thoroughly after removing examination gloves. Constitutional Vital Signs, click to edit/add: Last Vital Signs Temp 98.1 F 12/28/24 19:24 Pulse 70 12/28/24 19:24 Resp 18 12/28/24 19:24 BP 126/79 12/28/24 19:24 Pulse Ox 99 12/28/24 19:24 O2 Del Method Room Air 12/28/24 19:24 Course Course Hospital Course: Patient is getting Tylenol 1 g by mouth, Motrin 600 mg by mouth, crutches, and an x-ray of the left ankle. She was given an ice pack as well. Vital Signs Vital signs: Vital Signs Temperature 98.1 F 12/28/24 19:24 Pulse Rate 70 12/28/24 19:24 Respiratory Rate 18 12/28/24 19:24 Blood Pressure 126/79 12/28/24 19:24 Pulse Oximetry 99 12/28/24 19:24 Oxygen Delivery Method Room Air 12/28/24 19:24 Temperature 98.1 F 12/28/24 19:24 Pulse Rate 70 12/28/24 19:24 Respiratory Rate 18 12/28/24 19:24 Blood Pressure 126/79 12/28/24 19:24 Pulse Oximetry 99 12/28/24 19:24 Oxygen Delivery Method Room Air 12/28/24 19:24 Medical Decision Making MDM Narrative Medical decision making narrative: Patient is a 24-year-old female with a left ankle injury while trying to get into a golf cart. She inverted her ankle. Unable to ambulate. X-ray was initially interpreted by me and negative for any evidence of fracture, dislocation, or subluxation. There is evidence of soft tissue swelling. Analgesic medications were provided. Currently awaiting definitive results but the patient will be discharged with a presumptive diagnosis of a left ankle sprain and I will contact her with any discrepancy. Patient was given crutches and Sanjay wrap. Patient will be encouraged to ice, rest, elevate her leg and keep a compression on it. 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 Pain meds will be called in for very severe pain. Differential Diagnosis Differential Diagnosis: Fracture, dislocation, subluxation, sprain, strain, traumatic tendinitis Medical Records Medical records reviewed: Yes I reviewed the patient's medical records Imaging Data XR Left Ankle: Attestation: I personally reviewed and interpreted this imaging study as follows: My impression: No evidence of fracture, dislocation, subluxation or soft tissue swelling. Discharge Plan Discharge Chief Complaint: Extremity Injury, Lower Clinical Impression: Ankle sprain and strain Patient Disposition: Home, Self-Care Time of Disposition Decision: 20:13 Condition: Good Mode of Transportation: Private Vehicle Prescriptions / Home Meds: New hydrocodone-acetaminophen 5-325 mg tablet 1 tab PO Q6H PRN (Reason: pain) Qty: 10 0RF Print Language: [place] Instructions: Ankle Sprain (ED), P.R.I.C.E. Treatment (ED) Additional Instructions: Thank you for trusting me with your care today. Please follow-up with your physician. Return if your symptoms worsen or change. Make sure you elevate above your heart. Referrals: Carole Salas NP [Primary Care Provider] - 1 week
[2024-12-28] MEDS: IBUPROFEN 600 MG TABLET PO (19:43)
[2024-12-28] MEDS: ACETAMINOPHEN 500 MG TABLET 1000 MG PO (19:43)
== END 2024-12-28 20:32 | disposition home or self-care (01) ==
PROVIDERS: Emergency Provider Emergency Medicine; PCP Nurse Practitioner Family
DX: S93.402A Sprain of unspecified ligament of left ankle, initial encounter (principal); S96.912A Strain of unspecified muscle and tendon at ankle and foot level, left foot, initial encounter; X50.1XXA Overexertion from prolonged static or awkward postures, initial encounter; W18.39XA Other fall on same level, initial encounter; Y93.53 Activity, golf
CPT/HCPCS: 73610; 99283